=== PATIENT | female | born 1975 | race Caucasian/White ===

== ENCOUNTER 2020-10-15 12:42 | Outpatient (REF) | payer MEDICAID, SELFPAY ==
--- NOTE | ~2020-10-15 | MM_ITS ---
EXAMINATION: MM SCREENING DIGITAL BREAST TOMOSYNTHESIS, BILATERAL CLINICAL INFORMATION: Screening. Asymptomatic. The lifetime risk of breast cancer based on the Tyrer-Cuzick Model is 7%. COMPARISON: Mammography: 05/05/2019, 12/14/2017, 11/14/2016 TECHNIQUE: Digital breast tomosynthesis is performed in both the craniocaudal and mediolateral oblique views along with computer-aided detection (CAD). Synthesized 2D images are generated from the tomosynthesis. FINDINGS: There are scattered areas of fibroglandular density (ACR BI-RADS breast composition Category b). There are no significant masses, abnormal calcifications, or other abnormalities. The axilla and skin contours are unremarkable. There is incidental intramammary node again seen mid upper outer left breast. MM/MM tomosynthesis screening BI IMPRESSION: No mammographic evidence of malignancy. ASSESSMENT: BI-RADS 2: Benign RECOMMENDATION: Routine annual mammography screening. This patient's information was entered into a reminder system with a target due date for their next mammogram.
== END 2020-10-15 12:43 | disposition home or self-care (01) ==
LOC: HO.MAMMO 12:42
PROVIDERS: Visit Provider Internal Medicine
DX: Z12.31 Encounter for screening mammogram for malignant neoplasm of breast (principal)
CPT/HCPCS: 77063; 77067

== ENCOUNTER 2021-08-11 21:22 | Emergency (ER) | payer MEDICAID, SELFPAY ==
--- NOTE | 2021-08-11 | ECG_ITS ---
Test Reason : CHEST PAIN Blood Pressure : / mmHG Vent. Rate : 078 BPM Atrial Rate : 078 BPM P-R Int : 140 ms QRS Dur : 086 ms QT Int : 402 ms P-R-T Axes : 048 017 036 degrees QTc Int : 458 ms Normal sinus rhythm Normal ECG When compared with ECG of 12-APR-2004 10:50, No significant change was found Referred By: Generic ED Physician Electronically Signed By:JOHNATHAN JJ
[2021-08-11 22:37] VITALS: BP 98/78; PULSE 100; RESP 20; TEMP 37.2; O2SAT 100; BMI 42.3
--- NOTE | 2021-08-12 01:43 | PC.NURSE ---
Per pt, having SOB, midsternal CP radiating to upper RT shoulder, voice change Pt was having allergic reaction to frozen fruit on Sunday. Pt states been taking benadryl with no relief. Pt went to urgent care Sunday and was prescribed citrizine. Pt started taking citrizine at 1330. Pt started having signs and symptoms later in the afternoon.
--- NOTE | 2021-08-12 01:55 | ED.ALLEREA ---
HPI - Allergic Reaction General Chief complaint: Allergic Reaction Stated complaint: allergic reaction Time Seen by Provider: 08/12/21 01:48 Source: patient Mode of arrival: ambulatory Limitations: no limitations History of Present Illness HPI narrative: Patient comes to the emergency room for a possible allergic reaction to cetirizine. Patient states that yesterday she had frozen food, patient had hives and scratchy throat. Patient went to see her primary care physician, she was given cetirizine for the allergic reaction. Patient states that after she took the medication she had chest tightness, shortness of breath, itchy throat. Patient took the medication approximately 12 hours ago. Patient states that since then, her symptoms have subsided. At this time patient is asymptomatic. Related Data Previous Rx's Medication Instructions Recorded prednisone 50 mg tablet 50 mg PO DAILY #3 tab 08/12/21 Allergies Allergy/AdvReac Type Severity Reaction Status Date / Time From [facility] Allergy Mild RASH Uncoded 01/01/20 15:12 Review of Systems Review of Systems: Constitutional : No Weight loss, No Fever, No Chills, No Night Sweats, No Fatigue, No Malaise ENT/Mouth : No Hearing loss, No Ear Pain, No Nasal Congestion, No Sinus Pain, yesterday and earlier today patient had bit of hoarseness, self-resolved. No sore throat, No Rhinorrhea, No Swallowing Difficulty Eyes: No Eye Pain, No Swelling, No Redness, No Foreign Body, No Discharge, No Vision Changes Cardiovascular : Earlier today patient had chest tightness without any Chest Pain, No SOB, No Dyspnea on Exertion, No Orthopnea, No Edema, No Palpitations Respiratory : No Cough, No Sputum, No Wheezing, No Smoke Exposure, No Dyspnea Gastrointestinal : No Nausea, No Vomiting, No Diarrhea, No Constipation, No abdominal Pain, No Hematochezia, No Melena Genitourinary : no irregular bleeding, No Dysuria, No Urinary Frequency, No Hematuria, No Urinary Incontinence, No Urgency, No Flank Pain, No Urinary Flow Changes, No Hesitancy Musculoskeletal : No joint pain, No Myalgias, No Joint Swelling Skin :-redness yesterday, at this moment subsided Neuro : No Weakness, No Numbness, No Paresthesias, No Loss of Consciousness, No Dizziness, No Headache Psych : No Anxiety/Panic, No Depression, No SI/HI/AH/VH, No Social Issues, Heme/Lymph: No Bruising, No Bleeding,No Lymphadenopathy Endocrine : No Polyuria, No Polydipsia, No Temperature Intolerance [facility] Social History Social History Advance Directives: No Patient : No Physical Exam ED Vital Signs: Vital Signs - 24 hr 08/11/21 22:37 Temperature 98.9 F Pulse Rate 100 Respiratory Rate 20 Blood Pressure 98/78 Pulse Oximetry 100 BMI result Body Mass Index 42.3 Const Other: Appearance: Alert. Oriented X3. No acute distress. Eyes: Pupils equal, round and reactive to light. ENT: Pharynx normal. Normal tongue, normal uvula, no injury Merary Neck: Normal inspection. Neck supple. No lymph nodes noted. No crepitus CVS: Normal heart rate and rhythm. Pulses normal. Normal S1 and S2 Respiratory: No respiratory distress. Breath sounds normal. No Wheezing. No rales Abdomen: Soft and nontender. No rigidity. No distention. Skin: Skin warm and dry. Normal skin color. Normal skin turgor. No hives Extremities: No lower extremity edema. No Lacerations. No Rash Neuro: Oriented X 3. No motor deficit. No sensory deficit. Moving all extremities. No slurred speech. CN 2 through 12 grossly intact Psych: calm, cooperative, anxious Course Course Course Narrative: At this time, patient has no signs of allergic reaction. Patient was given p.o. prednisone, Pepcid, Benadryl. Patient instructed to discontinue taking cetirizine. Discharge Plan Discharge Clinical Impression: Allergic reaction Patient Disposition: Home, Self-Care Instructions: Allergies (ED) Additional Instructions: Please follow-up with your primary care physician tomorrow. If you have any worsening or new symptoms, please return to the emergency room or call 911 Prescriptions: New prednisone 50 mg tablet 50 mg PO DAILY Qty: 3 0RF
[2021-08-12] MEDS: Famotidine 20 MG TABLET PO (02:07)
[2021-08-12] MEDS: diphenhydrAMINE HCL 25 MG TABLET 50 MG PO (02:07)
[2021-08-12] MEDS: predniSONE 20 MG TABLET 60 MG PO (02:08)
[2021-08-12 02:10] VITALS: BP 120/64; PULSE 76; O2SAT 100
--- NOTE | 2021-08-12 02:13 | PC.NURSE ---
Pt medicated per MAR Pt tolerating well Will continue to monitor
== END 2021-08-12 02:14 | disposition home or self-care (01) ==
PROVIDERS: Emergency Provider Emergency Medicine
DX: L27.2 Dermatitis due to ingested food (principal); R07.89 Other chest pain; Z79.899 Other long term (current) drug therapy
CPT/HCPCS: 93005; 99283; Q0163

== ENCOUNTER 2021-08-19 13:15 | Outpatient (REF) | payer MEDICAID, SELFPAY ==
--- NOTE | ~2021-08-19 | XR_ITS ---
EXAMINATION: XR CHEST CLINICAL INFORMATION: Shortness of breath and chest tightness COMPARISON: None TECHNIQUE: 2 views of the chest were obtained. FINDINGS: The cardiac and mediastinal contours are normal. The lungs are clear. There is no pleural effusion or pneumothorax. There are degenerative changes of the spine. XR/XR chest 2V IMPRESSION: Unremarkable examination.
== END 2021-08-19 13:16 | disposition home or self-care (01) ==
LOC: HO.XRAY 13:15
PROVIDERS: PCP Registered Nurse Community Health; Visit Provider Registered Nurse Community Health
DX: R06.02 Shortness of breath (principal)
CPT/HCPCS: 71046

== ENCOUNTER 2021-09-01 07:36 | Outpatient (REF) | payer MEDICAID, SELFPAY ==
--- NOTE | 2021-09-01 | PFT_ITS ---
INDICATION: Shortness of breath. SPIROMETRY: FEV1 to FVC 85% with an FEV1 of 2.65 L, which is 87% predicted and an FVC of 3.12 L, which is 31% predicted. No significant response to bronchodilators noted. The maximum voluntary ventilation 64% predicted. LUNG VOLUMES: Total lung capacity 79% predicted with an expiratory reserve volume of 44% predicted. DIFFUSION CAPACITY: DLCO of 69% predicted, although it does correct to 94% predicted when correcting for the alveolar volume. COMPARISONS: None. INTERPRETATION: No obstructive ventilatory defect. No significant response to bronchodilators noted. There is a mild decrease in the maximum voluntary ventilation secondary to likely deconditioning, although cannot rule out neuromuscular conditions. Lung volumes do demonstrate a mild restrictive ventilatory defect. In addition to that, there is a decrease in the expiratory reserve volume secondary to an elevated BMI. The patient also has a mild diffusion impairment that does correct to normal when correcting for the alveolar volume, suggesting some degree that there is hyperexpansion of the lungs. Clinical correlation warranted. MD CESAR Mcgregor/REBEKAH / [id number]
== END 2021-09-01 07:37 | disposition home or self-care (01) ==
LOC: HO.RESP 07:36
PROVIDERS: PCP Registered Nurse Community Health; Visit Provider Registered Nurse Community Health
DX: R06.02 Shortness of breath (principal)
CPT/HCPCS: 94060; 94727; 94729

== ENCOUNTER 2021-09-21 14:22 | Outpatient (REF) | payer MEDICAID, SELFPAY ==
[2021-09-21 15:05] LABS: Hematocrit 33.8 % (37.0-47.0); Mean Corpuscular HGB Conc 32.5 g/dl (31.0-35.0); Mean Corpuscular Hemoglobin 28.1 pg (27.0-33.0); Mean Corpuscular Volume 86.2 fL (80.0-98.0); Mean Platelet Volume 10.9 fL (9.4-12.3); Platelet Count 238 X10*3/uL (160-400); Red Blood Count 3.92 X10*6/uL (4.20-5.50); Red Cell Distribution Width 13.2 % (11.0-16.0); White Blood Count 9.3 X10*3/uL (4.8-10.8)
[2021-09-21 15:51] LABS: Syphilis Screen Nonreactive (Nonreactive)
[2021-09-21 15:55] LABS: HCG Quantitative < 2 mIU/mL; TSH reflex Free T4 2.26 uIU/mL (0.32-4.0)
[2021-09-21 17:52] LABS: CT PCR NOT DETECTED (Not Detect.); NG PCR NOT DETECTED (Not Detect.)
[2021-09-22 04:59] LABS: HBsAGNum1 2.74 S/CO (0.00-0.99); HIV AB/AG Nonreactive (Nonreactive); HIV Num 1 0.72 S/CO (0.00-0.99); ~HepC Num1 0.11 S/CO (0.00-0.79); ~Hepatitis C Antibody Nonreactive (Nonreactive)
[2021-09-22 05:55] LABS: HBsAGNum2 Nonreactive; HBsAGNum3 Nonreactive; Hepatitis B Surface Antigen NEGATIVE (Negative)
[2021-09-22 12:31] LABS: BV Int Neg Control Negative (Negative); BV Int Pos Control Positive (Positive)
[2021-09-29 03:35] LABS: HPV mRNA E6/E7 rflx Not Detected (Not Detected)
== END 2021-09-21 14:23 | disposition home or self-care (01) ==
LOC: HO.LAB 14:22
PROVIDERS: PCP Registered Nurse Community Health; Visit Provider Obstetrics & Gynecology
DX: Z01.419 Encounter for gynecological examination (general) (routine) without abnormal findings (principal); N93.9 Abnormal uterine and vaginal bleeding, unspecified; B96.89 Other specified bacterial agents as the cause of diseases classified elsewhere; N76.0 Acute vaginitis
CPT/HCPCS: 36415; 84443; 84702; 85027; 86780; 86803; 87340; 87389; 87480; 87491; 87510; 87591; 87624; 87660; 88142; 99202

== ENCOUNTER 2021-10-31 13:49 | Outpatient (REF) | payer MEDICAID, SELFPAY | END 2021-10-31 13:50 | disposition home or self-care (01) | LOC: HO.LAB 13:49 | PROVIDERS: PCP Registered Nurse Community Health; Visit Provider Obstetrics & Gynecology | DX: N93.9 Abnormal uterine and vaginal bleeding, unspecified (principal) | CPT/HCPCS: 58100; 88305 ==

== ENCOUNTER → 2021-11-09 09:23 | Outpatient (BNVA) | payer MEDICAID, SELFPAY | PROVIDERS: PCP Registered Nurse Community Health; Visit Provider Obstetrics & Gynecology | DX: N85.00 Endometrial hyperplasia, unspecified (principal) | CPT/HCPCS: 58300; 81025; 99212; J7298 ==

== ENCOUNTER 2021-12-15 14:37 | Outpatient (REF) | payer MEDICAID, SELFPAY ==
--- NOTE | ~2021-12-15 | MM_ITS ---
EXAMINATION: MM SCREENING DIGITAL BREAST TOMOSYNTHESIS, BILATERAL CLINICAL INFORMATION: Screening. Asymptomatic. The lifetime risk of breast cancer based on the Tyrer-Cuzick Model is 8%. COMPARISON: Mammography: 10/15/2020, 05/05/2019, 12/14/2017 TECHNIQUE: Digital breast tomosynthesis is performed in both the craniocaudal and mediolateral oblique views along with computer-aided detection (CAD). Synthesized 2D images are generated from the tomosynthesis. Additional bilateral MLO views are provided. FINDINGS: There are scattered areas of fibroglandular density (ACR BI-RADS breast composition Category b). There are no significant masses, abnormal calcifications, or other abnormalities. Parenchymal pattern is similar to prior studies. There is no developing density or architectural abnormality. The axilla and skin contours are unremarkable. No significant changes. MM/MM tomosynthesis screening BI IMPRESSION: No mammographic evidence of malignancy. ASSESSMENT: BI-RADS 1: Negative RECOMMENDATION: Routine annual mammography screening. This patient's information was entered into a reminder system with a target due date for their next mammogram.
== END 2021-12-15 14:38 | disposition home or self-care (01) ==
LOC: HO.MAMMO 14:37
PROVIDERS: PCP Registered Nurse Community Health; Visit Provider Obstetrics & Gynecology
DX: Z12.31 Encounter for screening mammogram for malignant neoplasm of breast (principal)
CPT/HCPCS: 77063; 77067

== ENCOUNTER → 2022-01-05 11:36 | Outpatient (BNVA) | payer MEDICAID, SELFPAY | PROVIDERS: PCP Registered Nurse Community Health; Visit Provider Obstetrics & Gynecology | DX: Z30.431 Encounter for routine checking of intrauterine contraceptive device (principal) | CPT/HCPCS: 99212 ==

== ENCOUNTER 2022-02-07 11:18 | Outpatient (REF) | payer MEDICAID, SELFPAY | END 2022-02-07 11:19 | disposition home or self-care (01) | LOC: HO.LNP 11:18 | PROVIDERS: Visit Provider Obstetrics & Gynecology | DX: N85.00 Endometrial hyperplasia, unspecified (principal) | CPT/HCPCS: 58100; 88305 ==

== ENCOUNTER → 2022-02-27 14:52 | Outpatient (BNVA) | payer MEDICAID, SELFPAY | PROVIDERS: PCP Registered Nurse Community Health; Visit Provider Obstetrics & Gynecology | DX: N85.00 Endometrial hyperplasia, unspecified (principal) | CPT/HCPCS: 99212 ==

== ENCOUNTER 2022-05-30 08:48 | Outpatient (REF) | payer MEDICAID, SELFPAY | END 2022-05-30 08:49 | disposition home or self-care (01) | LOC: HO.LNP 08:48 | PROVIDERS: PCP Registered Nurse Community Health; Visit Provider Obstetrics & Gynecology | DX: N93.9 Abnormal uterine and vaginal bleeding, unspecified (principal); N85.00 Endometrial hyperplasia, unspecified | CPT/HCPCS: 58100; 81025; 88305 ==

== ENCOUNTER → 2022-06-14 14:58 | Outpatient (BNVA) | payer MEDICAID, SELFPAY | PROVIDERS: PCP Registered Nurse Community Health; Visit Provider Obstetrics & Gynecology | DX: N85.01 Benign endometrial hyperplasia (principal) | CPT/HCPCS: 99212 ==

== ENCOUNTER 2022-10-23 15:03 | Outpatient (AMB) | payer MEDICAID, SELFPAY ==
[2022-10-23 15:19] VITALS: BP 122/80; BMI 42.8
--- NOTE | 2022-10-23 15:19 | MHC.OFFVIS ---
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 The patient is doing well with no complaints PFSH Medical History Hypertension Varicose veins of both legs with edema Surgical History History of back surgery Hx of cholecystectomy Family History Father Colon cancer Mother Heart attack COPD (chronic obstructive pulmonary disease) Social History Household Members Other:: daughter [facility] Alcohol intake: never Patient Tobacco Use Status: Former Tobacco user Physical Exam Vital Signs: BMI result Body Mass Index 42.8 Office Procedures Endometrial Biopsy Details: The patient was counseled regarding the indication and benefits of endometrial sampling to rule out endometrial pathology including not limited to endometrial hyperplasia or endometrial cancer and others; The alternatives (Either do nothing vs. hysteroscopy D&C) & the risks were discussed with the patient including but not limited: pain, uterine perforation, bleeding, infection, possible injury to bladder, bowel, ureter, possible need for blood transfusion with all its possible risks. The patient verbalized understanding all questions answered and signed consent. Urine test done in the office was negative The patient was placed into the dorsal lithotomy position; a speculum was inserted in the vagina. Using aseptic technique for the procedure, the cervix was cleansed with Betadine. The anterior lip of the cervix was grasped with a single tooth tenaculum. The uterus was sounded to 7 cm with a 4 mm Pipelle was used. Tissues samples were obtained and placed in formalin, in a patient labeled container and sent to the pathology department. At the end of the procedure, there was minimal bleeding noted The patient tolerated the procedure well and was discharged in good condition with the following instructions: Nothing in the vagina until the bleeding stops. No sex until the bleeding stops, to call if any of the following occurs: fever (>100.4), flu-like symptoms, abdominal pain, heavy bleeding, four smelling vaginal discharge. The patient was instructed to schedule a Follow up appointment in 2 weeks to discuss pathology results of the biopsy and treatment options. This note was generated with a voice recognition program. Some errors may have been overlooked during the review of this note. Sometimes these errors may affect the content or meaning of a given sentence. [id number] Biopsy Results AMB Test Urine AMB Test Urine Negative Last Edit by GERMAN Fu on 10/23/22 15:22 Assessment & Plan Assessment & Plan (1) Endometrial hyperplasia without atypia: Comment: Resolved with Mirena IUD Code(s): N85.00 - Endometrial hyperplasia, unspecified Plan: EMB done, see procedure note Orders: Orders AMB HCG Urine Test Today Z32.02 - Encounter for test, result negative AMB Endometrial Biopsy Today N85.00 - Endometrial hyperplasia, unspecified Coding Level of Care Code Procedure Only Diagnoses Endometrial hyperplasia without atypia N85.00 CPT Codes Endometrial Biopsy - CPT: 68235-[id number] Biopsy ([id number])
== END 2022-10-23 15:36 | disposition home or self-care (01) ==
LOC: HO.HWS 15:03
PROVIDERS: PCP Registered Nurse Community Health; Visit Provider Obstetrics & Gynecology
DX: N85.00 Endometrial hyperplasia, unspecified (principal); Z32.02 Encounter for pregnancy test, result negative
CPT/HCPCS: 58100

== ENCOUNTER 2022-10-23 15:03 | Outpatient (REF) | payer MEDICAID, SELFPAY | END 2022-10-23 15:04 | disposition home or self-care (01) | LOC: HO.LNP 15:03 | PROVIDERS: PCP Registered Nurse Community Health; Visit Provider Obstetrics & Gynecology | DX: N85.00 Endometrial hyperplasia, unspecified (principal); N93.9 Abnormal uterine and vaginal bleeding, unspecified | CPT/HCPCS: 58100; 81025; 88305 ==

== ENCOUNTER 2022-12-21 14:51 | Outpatient (REF) | payer MEDICAID, SELFPAY | END 2022-12-21 14:52 | disposition home or self-care (01) | LOC: HO.MAMMO 14:51 | PROVIDERS: PCP Registered Nurse Community Health; Visit Provider Registered Nurse Community Health | DX: Z12.31 Encounter for screening mammogram for malignant neoplasm of breast (principal) | CPT/HCPCS: 77063; 77067 ==

== ENCOUNTER → 2022-12-21 15:15 | Outpatient (BNV) | payer MEDICAID, SELFPAY | PROVIDERS: PCP Registered Nurse Community Health; Visit Provider Radiology Diagnostic Radiology | DX: Z12.31 Encounter for screening mammogram for malignant neoplasm of breast (principal) | CPT/HCPCS: 77063; 77067 ==

== ENCOUNTER 2023-01-08 12:00 | Outpatient (REF) | payer MEDICAID, SELFPAY ==
[2023-01-08 13:01] LABS: MANUAL DIFF FLAG NO
[2023-01-08 13:14] LABS: Basophils Absolute Auto 0.1 X10*3/uL (0.0-0.2); Basophils Percent Auto 0.7 % (0-2); Eosinophils Absolute Auto 0.1 X10*3/uL (0.0-0.4); Eosinophils Percent Auto 1.5 % (0-4); Hematocrit 42.9 % (37.0-47.0); Hemoglobin 14.5 g/dl (12.0-16.0); Imm Gran Abs Auto 0.03 X10*3/uL (0.00-0.03); Imm Gran Pct Auto 0.4 % (0.0-0.4); Lymphocytes Absolute Auto 1.7 X10*3/uL (1.2-4.9); Lymphocytes Percent Auto 21.4 % (20-40); Mean Corpuscular HGB Conc 33.8 g/dl (31.0-35.0); Mean Corpuscular Hemoglobin 30.1 pg (27.0-33.0); Mean Platelet Volume 11.1 fL (9.4-12.3); Monocytes Absolute Auto 0.4 X10*3/uL (0.1-1.2); Monocytes Percent Auto 4.9 % (2-11); Neutrophils Absolute Auto 5.8 x10*3/uL (2.0-8.3); Neutrophils Percent Auto 71.1 % (45-73); Platelet Count 232 X10*3/uL (160-400); Red Blood Count 4.82 X10*6/uL (4.20-5.50); Red Cell Distribution Width 12.4 % (11.0-16.0); White Blood Count 8.1 X10*3/uL (4.8-10.8)
[2023-01-08 13:24] LABS: Estimated Average Glucose 91 mg/dL; Hemoglobin A1c % 4.8 % (<6.0)
[2023-01-08 13:42] LABS: Alanine Aminotransferase 19 U/L (0-31); Albumin Level 4.4 g/dL (3.5-5.0); Alkaline Phosphatase 61 U/L (39-117); Anion Gap 14 (12-20); Aspartate Amino Transferase 17 U/L (5-31); Bilirubin Total 0.8 mg/dL (0.0-1.0); Blood Urea Nitrogen 10 mg/dL (9-16); Calcium 9.9 mg/dL (8.4-10.2); Carbon Dioxide 27 mmol/L (22-29); Chloride 106 mmol/L (96-108); Cholesterol 173 mg/dL (<200); Estimated Glomerular Filt Rate > 60; Glucose Random 100 mg/dL (60-115); HDL Cholesterol 55 mg/dL (>40); LDL Cholesterol Calculated 104 mg/dL (<100); Potassium 3.8 mmol/L (3.3-5.1); Sodium 143 mmol/L (135-145); Total Protein 7.5 g/dL (6.5-8.0); Triglycerides 70 mg/dL (<150)
[2023-01-08 13:58] LABS: TSH reflex Free T4 3.07 uIU/mL (0.32-4.0)
[2023-01-12 11:54] LABS: VITAMIN D (1,25 OH) D3 31 pg/mL; Vit D (1,25-Dihydroxy) Total 31 pg/mL (18-72); Vitamin D (1,25 OH) D2 <8 pg/mL
== END 2023-01-08 12:01 | disposition home or self-care (01) ==
LOC: HO.HHCL 12:00
PROVIDERS: Visit Provider Registered Nurse
DX: Z00.00 Encounter for general adult medical examination without abnormal findings (principal)
CPT/HCPCS: 36415; 80053; 80061; 82652; 83036; 84443; 85025

== ENCOUNTER 2023-01-17 15:03 | Outpatient (AMB) | payer MEDICAID, SELFPAY ==
--- NOTE | 2023-01-17 15:08 | A.OFFVIS_ITS ---
Intake Vital Signs 01/17/23 15:11 Height 5 ft 5 in Weight 255 lb 11.779 oz BMI 42.6 BP 102/60 Intake Visit Reasons: EMB results Allergies From [facility] Allergy (Mild, Uncoded 10/23/22 15:19) RASH HPI HPI Comments History of Present Illness Details Presenting for follow-up endometrial biopsy as part of the surveillance for simple endometrial hyperplasia diagnosed in 11/04. Since then to endometrial biopsy were negative for endometrial hyperplasia and/or malignancy in 02/04 and in 06/07. Pathology showed the following: -Benign endometrium with ectatic stromal vessels, marked decidual stromal change, and atrophic glands, consistent with progestin effect; no atypia or carcinoma. -Benign endocervical glandular and squam ous epithelium [facility] Medical History Hypertension Varicose veins of both legs with edema Surgical History History of back surgery Hx of cholecystectomy Family History Father Colon cancer Mother Heart attack COPD (chronic obstructive pulmonary disease) Social History Household Members Other:: daughter Housing: Condominium Alcohol intake: never Patient Tobacco Use Status: Former Tobacco user Review of Systems Const All systems reviewed & are unremarkable except as noted in HPI and below Reports as per HPI and Reports no additional complaints GI Reports no additional complaints Reports no additional complaints Assessment & Plan Assessment & Plan (1) Endometrial hyperplasia without atypia: Comment: Resolved with Mirena IUD Code(s): N85.00 - Endometrial hyperplasia, unspecified Plan: Discussed with the patient the results are EMB no evidence of persistence or recurrence of endometrial hyperplasia. Instructions given the patient to call in case of abnormal uterine bleeding, otherwise will keep Mirena IUD and follow- up as needed and to schedule annual exam appointment . All questions answered, the patient verbalized understanding Coding Level of Care Code Est Pt Level 3 (07412) Diagnoses Endometrial hyperplasia without atypia N85.00
[2023-01-17 15:11] VITALS: BP 102/60; BMI 42.6
== END 2023-01-17 15:17 | disposition home or self-care (01) ==
LOC: HO.HWS 15:03
PROVIDERS: PCP Registered Nurse Community Health; Visit Provider Obstetrics & Gynecology
DX: N85.00 Endometrial hyperplasia, unspecified (principal)
CPT/HCPCS: 99213

== ENCOUNTER → 2023-01-17 15:03 | Outpatient (BNVA) | payer MEDICAID, SELFPAY | PROVIDERS: PCP Registered Nurse Community Health; Visit Provider Obstetrics & Gynecology | DX: N85.00 Endometrial hyperplasia, unspecified (principal); Z98.890 Other specified postprocedural states | CPT/HCPCS: 99212 ==

== ENCOUNTER 2023-04-02 14:59 | Outpatient (AMB) | payer MEDICAID, SELFPAY ==
[2023-04-02 15:25] VITALS: BP 120/84; BMI 42.9
--- NOTE | 2023-04-02 15:25 | A.OFFVIS_ITS ---
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 No complaints. No vaginal bleeding Last Pap/HPV was negative in 10/05 Last Mammogram was BI-RADS 1 in 01/06 The patient had simple endometrial hyperplasia without atypia in 11/04 has been on Mirena IUD since then repeat endometrial biopsy in 02/04 , 06/08 and 11/05 were negative Last screening colonoscopy was 3 years ago, the patient is due for another screening colonoscopy in 2 years [facility] Medical History Hypertension Varicose veins of both legs with edema Surgical History History of back surgery Hx of cholecystectomy Family History Father Colon cancer Mother Heart attack COPD (chronic obstructive pulmonary disease) Social History Household Members Other:: daughter Housing: Condominium Alcohol intake: never Patient Tobacco Use Status: Former Tobacco user Female Reproductive History Menstrual control method: progestin IUCD Date of last pap smear: 09/21/21 (neg pap and hpv) Date of Mammogram: 12/21/22 Review of Systems Const All systems reviewed & are unremarkable except as noted in HPI and below Card Reports as per HPI Resp Reports as per HPI GI Reports as per HPI and Reports no additional complaints Reports as per HPI Physical Exam Vital Signs: BMI result Body Mass Index 42.9 Const General: cooperative, healthy appearing and comfortable Chest Chest palpation & inspection: normal inspection of the chest and normal palpation of entire chest wall Breast/axilla inspection: normal inspection of the breasts and normal inspection of the axillae Breast/axilla palpation: normal palpation of the breasts, normal palpation of the axillae and no axillary lymphadenopathy Resp Effort & Inspection: normal respiratory effort Auscultation: clear to auscultation bilaterally Percussion: percussion normal Cardio Palpation: normal PMI Rate: regular rate Rhythm: regular rhythm Heart sounds: no murmurs and no rubs Peripheral pulses: Peripheral pulses 2+ throughout GI Inspection: Yes normal to inspection Palpation (GI): Soft to palpation, nontender, no guarding, not rigid and No hepatosplenomegaly present Percussion: Yes normal to percussion Auscultation: normal bowel sounds Rectal Exam - Female: deferred General: Yes bladder normal to palpation External Female Exam: No lesion Speculum Exam - Vagina: normal appearance of the vagina, normal palpation, normal vaginal discharge and not erythematous Speculum Exam - Cervix: normal appearance of the cervix, normal palpation and Other cervical findings present (IUD string in place) Bimanual exam- vagina & uterus: normal bimanual exam, normal palpation, uterine size normal, bladder normal to palpation, consistency normal and normal palpation Bimanual Exam- Adnexa, other: normal adnexae, no masses and no tenderness Assessment & Plan Assessment & Plan (1) Endometrial hyperplasia without atypia: Comment: Resolved with Mirena IUD Code(s): N85.00 - Endometrial hyperplasia, unspecified Plan: Instructions given the patient to call in case of in abnormal uterine bleeding, will proceed with repeat endometrial biopsy to rule out recurrence progression of endometrial hyperplasia (2) Well woman exam: Code(s): Z01.419 - Encounter for gynecological examination (general) (routine) without abnormal findings Plan: Co testing not indicated this year. Counseled the patient about the recommended dietary allowance of 1200 mg of Calcium & 600 IU of vitamin D. Instructions given the patient to schedule next screening mammogram in 01/07. The patient was instructed to perform monthly self-breast exams and schedule annual exam in a year. All questions answered and the patient verbalized understanding. (3) IUD check up: Code(s): Z30.431 - Encounter for routine checking of intrauterine contraceptive device Plan: Discussed with the patient the finding on physical exam, IUD string in place, the patient was reassured. The patient requested to trim the IUD strings insert partner is feeling the string, the IUD string was cut by 0.5 cm. Coding Level of Care Code Est Pt Prev Care 40-64y(57376) Diagnoses Endometrial hyperplasia without atypia N85.00 Well woman exam Z01.419 IUD check up Z30.431
== END 2023-04-02 15:44 | disposition home or self-care (01) ==
PROVIDERS: PCP Registered Nurse Community Health; Visit Provider Obstetrics & Gynecology
DX: Z01.419 Encounter for gynecological examination (general) (routine) without abnormal findings (principal); N85.00 Endometrial hyperplasia, unspecified
CPT/HCPCS: 99396

== ENCOUNTER → 2023-04-02 14:59 | Outpatient (BNVA) | payer MEDICAID, SELFPAY | PROVIDERS: PCP Registered Nurse Community Health; Visit Provider Obstetrics & Gynecology | DX: Z01.419 Encounter for gynecological examination (general) (routine) without abnormal findings (principal); Z30.431 Encounter for routine checking of intrauterine contraceptive device; N85.00 Endometrial hyperplasia, unspecified | CPT/HCPCS: 99396 ==

== ENCOUNTER 2023-12-24 15:04 | Outpatient (REF) | payer MEDICAID, SELFPAY ==
--- NOTE | ~2023-12-24 | MM_ITS ---
EXAMINATION: MM SCREENING DIGITAL BREAST TOMOSYNTHESIS, BILATERAL CLINICAL INFORMATION: Screening. Asymptomatic. COMPARISON: Mammography: Comparison is made with available priors TECHNIQUE: Digital breast mammography with tomosynthesis is performed in both the craniocaudal and mediolateral oblique views along with computer-aided detection (CAD). FINDINGS: There are scattered areas of fibroglandular density (ACR BI-RADS breast composition Category b). There are no significant masses, abnormal calcifications, or other abnormalities. MM/MM tomosynthesis screening BI IMPRESSION: No mammographic evidence of malignancy. ASSESSMENT: BI-RADS BI-RADS 1 - Negative RECOMMENDATION: Routine annual mammography screening. 1 year F/U This examination should not preclude the clinical evaluation of a suspicious palpable abnormality. This patient's information was entered into a reminder system with a target due date for their next mammogram. Electronically signed by: Carmen Cobb DO 01/08/2024 09:21 AM EDT
== END 2023-12-24 15:05 | disposition home or self-care (01) ==
LOC: HO.MAMMO 15:04
PROVIDERS: PCP Registered Nurse; Visit Provider Registered Nurse
DX: Z12.31 Encounter for screening mammogram for malignant neoplasm of breast (principal)
CPT/HCPCS: 77063; 77067

== ENCOUNTER → 2023-12-24 15:15 | Outpatient (BNV) | payer MEDICAID, SELFPAY | PROVIDERS: PCP Registered Nurse; Visit Provider Internal Medicine | DX: Z12.31 Encounter for screening mammogram for malignant neoplasm of breast (principal) | CPT/HCPCS: 77063; 77067 ==

== ENCOUNTER 2024-04-25 07:53 | Day surgery (SDC) | payer MEDICAID, SELFPAY ==
--- OUTSIDE RECORDS SUMMARY | 2024-03-26 04:49 | XMS_ITS ---
Author Organization [facility] Address [address] [place] [address] Care Team Providers Care Risk Investigator Name Role Phone PATRIC MUNROE MD Primary Care Provider Sherwin Martinez Jr Unavailable ALLERGIES Allergen (clinical drug ingredient) Drug/Non Drug Allergy documented on EMR Reaction Allergy Type Onset Date Status naproxen Naproxen Unknown Drug Allergy Active gabapentin Gabapentin Unknown Drug Allergy Activ e fluoxetine Fluoxetine Unknown Drug Allergy Activ e amlodipine Amlodipine Besylate Unknown Drug Allergy Active REASON FOR VISIT Patient presents today for a consultation MEDICATIONS Medication SIG (Take, Route, Frequency, Duration) Notes Start Date End Date Status hydroCHLOROthiazide 25 MG 1 tablet in th e morning Orally Once a day Active Loratadine 10 MG 1 tablet Orally Once a day/prn Active traMADol HCl 50 MG 1 tablet Orally ever y 8 hours as needed Active Lisinopril 20 MG 1 tablet Orally Once a day Active Metoprolol Tartrate 50 MG 1 tablet with food Orally once daily Active Colace 100 MG 1 capsule as needed Orally twice a day Active Fluticasone Propionate 50 MCG/ACT 1 spray in each nostril Nasally Once a day Active Wellbutrin SR 200 MG 1 tablet in the morning Orally twice a day Active Cyclobenzaprine HCl 5 MG 1 tablet as nee ded Orally Three times a day Active metFORMIN HCl 500 MG 1 tablet with a gary l Orally Once a day for 30 day(s) Active MiraLax - 1 packet mixed with 8 ounces of fluid Orally Once a day for 30 day(s) Active Simethicone 80 MG 1 tablet after meals and at bedtime as needed Orally Four times a day Active Ranitidine HCl 150 MG 1 capsule at bedti me Orally Once a day for 30 day(s) Active Ibuprofen 800 MG 1 tablet with food o r milk as needed Orally Three times a day Active Eucerin - as directed Externally Active SOCIAL HISTORY Sex Assigned At : Social History Observation Description Sex Assigned At Unknown Alcohol Screen Question Answer Notes Did you have a drink contain ing alcohol in the past year? Yes How often did you have a dri nk containing alcohol in the past year? Monthly or less (1 point) How many drinks did you have on a typical day when you were drinking in the past year? 1 or 2 drinks (0 point) How often did you have 6 or more drinks on one occasion in the past year? Never (0 point) Points 1 Interpretation Negative PROBLEMS Problem Type ICD Code Onset Dates Problem Status W/U Status Risk SNOMED Code Notes Problem Gastroesophageal reflux disease, unspecified whether esophagitis present (K21.9) Active confirmed 748076967 VITAL SIGNS BMI 39.76 kg/m2 03/20/2024 Blood pressure systolic 00 mm Hg 03/20/20 24 Blood pressure diastolic 00 mm Hg 024 Height 66.75 in 03/20/2024 Weight 252 lbs 03/20/2024 Encounters Encounter Location Date Provider Diagnosis [facility] [address] [place] [address] 03/20/2024 Sherwin Lama Jr Colon cancer screening Z12.11 ; Gastroesophageal reflux disease, unspecified whether esophagitis present K21.9 and Family history of colon cancer Z80.0 ASSESSMENTS Encounter Date Diagnosis Assessment Notes Treatment Notes Treatment Clinical Notes 03/20/2024 Colon cancer screeni ng (ICD-10 - Z12.11) Colonoscopy material was printed 03/20/2024 Gastroesophageal reflux disease, unspecified whether esophagitis present (ICD-10 - K21.9) 03/20/2024 Family history of colon cancer (ICD-10 - Z80.0) PLAN OF TREATMENT Treatment Notes Assessment Notes Colon cancer screening Colonoscopy mater ial was printed Future Test Test Name Order Date COLONOSCOPY 03/20/2024 Next Appt Details Follow Up: 1 Year, Reason: Provider Name:Sherwin escobedo Jr, 04/25/2024 10:00:00 AM, [address] [place] [address] , [place], [place], [phone], Progress Notes * Examination Category Sub-Category Detail Notes General Examination GENERAL APPEARANCE: in no ac apache distress HEAD: normocephalic EYES: sclera non-icteric NECK/THYROID: no lymphadenopathy HEART: S1, S2 normal, no mu rmurs CHEST: normal shape and exp ansion LUNGS: clear to auscultatio n bilaterally ABDOMEN: soft, nontender, non distended, bowel sounds present, no organomegaly SKIN: anicteric EXTREMITIES: no clubbing, cyanosi s, or edema PSYCH: cognitive function i ntact ORAL CAVITY: mucosa moist
--- OUTSIDE RECORDS SUMMARY | 2024-03-26 04:49 | XMS_ITS | Patient Health Record ---
Author Organization [facility] Address [address] [place] [address] Care Team Providers Care Compressed Gas Equipment Mechanic Name Role Phone PATRIC MUNROE MD Primary Care Provider Unavaila Sherwin Livingston Jr Unavailable [phone] ALLERGIES Allergen (clinical drug ingredient) Drug/Non Drug Allergy documented on EMR Reaction Allergy Type Onset Date Status naproxen Naproxen Unknown Drug Allergy Active gabapentin Gabapentin Unknown Drug Allergy Activ e fluoxetine Fluoxetine Unknown Drug Allergy Activ e amlodipine Amlodipine Besylate Unknown Drug Allergy Active REASON FOR REFERRAL Referring Provider First Name PATRIC Referring Provider Last Name LUDWIG Referred Organization [facility] Referred Provider Sherwin Lama Jr Referred Address [address],[place],[address], Referred Provider Specialty Gastroentero logy General Notes Rocío Frederick 024 02:55:59 PM EST > requested a [facility] for visit with Dr. Lama on [phone] Referral Priority Routine MEDICATIONS Medication SIG (Take, Route, Frequency, Duration) Notes Start Date End Date Status Eucerin - as directed Externally Active metFORMIN HCl 500 MG 1 tablet with a gary l Orally Once a day for 30 day(s) Active MiraLax - 1 packet mixed with 8 ounces of fluid Orally Once a day for 30 day(s) Active Colace 100 MG 1 capsule as needed Orally twice a day Active hydroCHLOROthiazide 25 MG 1 tablet in th e morning Orally Once a day Active Loratadine 10 MG 1 tablet Orally Once a day/prn Active traMADol HCl 50 MG 1 tablet Orally ever y 8 hours as needed Active Lisinopril 20 MG 1 tablet Orally Once a day Active Simethicone 80 MG 1 tablet after meals and at bedtime as needed Orally Four times a day Active Fluticasone Propionate 50 MCG/ACT 1 spray in each nostril Nasally Once a day Active Ranitidine HCl 150 MG 1 capsule at bedti me Orally Once a day for 30 day(s) Active Wellbutrin SR 200 MG 1 tablet in the morning Orally twice a day Active Ibuprofen 800 MG 1 tablet with food o r milk as needed Orally Three times a day Active Metoprolol Tartrate 50 MG 1 tablet with food Orally once daily Active Cyclobenzaprine HCl 5 MG 1 tablet as nee ded Orally Three times a day Active IMMUNIZATIONS Vaccine Route Administration Date Status Comme nts Influenza Unknown 04/23/2018 Administered SOCIAL HISTORY Sex Assigned At : Social [...] W/U Status Risk SNOMED Code Notes Problem Family history of colon cancer (Z80.0) Active confirmed [id number] Problem correction (current) use of non-steroidal anti-inflammatories (NSAID) (Z79.1) Active confirmed 812346766 Problem correction (current) use of oral hypoglycemic drugs (Z79.84) Active confirmed [id number] Problem Gastroesophageal reflux disease, unspecified whether esophagitis present (K21.9) Active confirmed 395831484 VITAL SIGNS Blood pressure diastolic 00 mm Hg 03/20/2024 Height 66.75 in 03/20/2024 Blood pressure systolic 00 mm Hg 03/20/2024 Weight 252 lbs 03/20/2024 BMI 39.76 kg/m2 03/20/2024 Encounters Encounter Location Date Provider Diagnosis [facility] [address] [place] [address] 03/20/2024 Sherwin Lama Jr Colon cancer screening [...] cancer (ICD-10 - Z80.0) PLAN OF TREATMENT Future Test Test Name Order Date COLONOSCOPY 08/29/2012 COLONOSCOPY 07/24/2018 COLONOSCOPY 03/20/2024 Next Appt Details Provider Name:Sherwin escobedo , 04/25/2024 10:00:00 AM, [address] [place] [address] , [place], [place], [phone], Insurance Providers Payer Name Payer Address Payer Phone Subscriber Number Group Number Insured Name Patient Relationship to Insured Coverage Start Date Coverage End Date [place] [facility] [address] [place] [phone] [id number] LENA MALLORY Self - patient is the insured MEDICAL (GENERAL) HISTORY Medical History History ICD Code Gastroesophageal reflux disease Back and neck pain Varicose veins Hypertension Depression Elevated body mass index Colonoscopy 02/01, Endometrial hyperplasia/abnormal uterine bleeding Surgical History Surgery Date(Month/Year) Tubal ligation Cholecystectomy Back surgery IUD placement
[2024-04-23 11:59] VITALS: BMI 40.7
--- NOTE | 2024-04-24 09:06 | HO.ANESPROP2 ---
Documented by User: Maura Merino NP 04/24/24 09:06 HPI - Anesthesia Eval Consult details Narrative: 48yo F for Colonoscopy PMFSH Active Problems Active Problems: All Active Problems Well woman exam (Acute) IUD check up (Acute) Endometrial hyperplasia without atypia (Acute) Bacterial vaginosis (Acute) Abnormal uterine bleeding (Acute) Past Medical History Medical History History of use of contraceptive intrauterine device (IUD) Endometrial hyperplasia Depression Neck pain Back pain GERD (gastroesophageal reflux disease) Hypertension Varicose veins of both legs with edema Family History Family History Father Colon cancer Mother Heart attack COPD (chronic obstructive pulmonary disease) Surgical History Surgical History (Updated 04/25/24 @ 08:02 by Melanie Pool RN) Hx of varicose vein ligation Hx of tubal ligation H/O colonoscopy History of back surgery Hx of cholecystectomy Social History Social History Household Members Other:: daughter Housing: Condominium Alcohol intake: never Patient Tobacco Use Status: Former Tobacco user Use of substances other than those prescribed or required for medical reasons: No Are you DNR?: No Advance Directives: No Advance Directives Information Provided: Yes Recently lost weight without trying: No Meds Allergies Allergy/AdvReac Type Severity Reaction Status Date / Time amlodipine Allergy Unknown Verified 04/25/24 08:02 fluoxetine Allergy Unknown Verified 04/25/24 08:02 gabapentin Allergy Unknown Verified 04/25/24 08:02 naproxen Allergy Unknown Verified 04/25/24 08:02 Home Medications ?Medication ?Instructions ?Recorded ?Confirmed ?Last Taken ?Type bupropion HCl 200 mg tablet,12 hr 200 mg PO BID 09/21/21 04/23/24 04/25/24 06:15 History sustained-release cyclobenzaprine 5 mg tablet 5 mg PO TID PRN Muscle Spasm 09/21/21 04/23/24 Unknown History docusate sodium 100 mg capsule 100 mg PO BID PRN Constipation 09/21/21 04/23/24 Unknown History fluticasone propionate 50 2 spray intranasal QAM 09/21/21 04/23/24 04/25/24 06:15 History mcg/actuation nasal spray,suspension hydrochlorothiazide 25 mg tablet 25 mg PO DAILY 09/21/21 04/23/24 Unknown History ibuprofen 800 mg tablet 800 mg PO TID PRN Pain 09/21/21 04/23/24 04/18/24 History lisinopril 20 mg tablet 20 mg PO DAILY 09/21/21 04/23/24 Unknown History loratadine 10 mg tablet 10 mg PO DAILY PRN Allergy Symptoms 09/21/21 04/23/24 Unknown History metoprolol tartrate 50 mg tablet 50 mg PO DAILY 09/21/21 04/23/24 04/25/24 06:15 History tramadol 50 mg tablet 50 mg PO TID PRN Pain 09/21/21 04/23/24 Unknown History metformin 500 mg tablet 500 mg PO DAILY 04/23/24 04/23/24 Unknown History ranitidine HCl 150 mg tablet 150 mg PO BEDTIME 04/23/24 04/23/24 Unknown History simethicone 80 mg chewable tablet 80 mg PO QID PRN Abdominal 04/23/24 04/23/24 Unknown History Discomfort Exam Height,Weight and Vital Signs: Height 5 ft 6 in Weight 114.305 kg Assessment and Plan Assessment Anesthesia Assessment: Chart Reviewed Documented by User: Montez Weinberg MD 04/25/24 08:44 [facility] Past Medical History Medical History History of use of contraceptive intrauterine device (IUD) Endometrial hyperplasia Depression Neck pain Back pain GERD (gastroesophageal reflux disease) Hypertension Varicose veins of both legs with edema Family History Family History Father Colon cancer Mother Heart attack COPD (chronic obstructive pulmonary disease) Family history of problems with anesthesia: No Surgical History Surgical History (Updated 04/25/24 @ 08:02 by Melanie Pool RN) Hx of varicose vein ligation Hx of tubal ligation H/O colonoscopy History of back surgery Hx of cholecystectomy History of Problems with Anesthesia: No Social History Social History Household Members Other:: daughter Housing: Condominium Alcohol intake: never Patient Tobacco Use Status: Former Tobacco user Use of substances other than those prescribed or required for medical reasons: No Are you DNR?: No Advance Directives: No Advance Directives Information Provided: Yes Recently lost weight without trying: No Meds Allergies Allergy/AdvReac Type Severity Reaction Status Date / Time amlodipine Allergy Unknown Verified 04/25/24 08:02 fluoxetine Allergy Unknown Verified 04/25/24 08:02 gabapentin Allergy Unknown Verified 04/25/24 08:02 naproxen Allergy Unknown Verified 04/25/24 08:02 Home Medications ?Medication ?Instructions ?Recorded ?Confirmed ?Last Taken ?Type bupropion HCl 200 mg tablet,12 hr 200 mg PO BID 09/21/21 04/23/24 04/25/24 06:15 History sustained-release cyclobenzaprine 5 mg tablet 5 mg PO TID PRN Muscle Spasm 09/21/21 04/23/24 Unknown History docusate sodium 100 mg capsule 100 mg PO BID PRN Constipation 09/21/21 04/23/24 Unknown History fluticasone propionate 50 2 spray intranasal QAM 09/21/21 04/23/24 04/25/24 06:15 History mcg/actuation nasal spray,suspension hydrochlorothiazide 25 mg tablet 25 mg PO DAILY 09/21/21 04/23/24 Unknown History ibuprofen 800 mg tablet 800 mg PO TID PRN Pain 09/21/21 04/23/24 04/18/24 History lisinopril 20 mg tablet 20 mg PO DAILY 09/21/21 04/23/24 Unknown History loratadine 10 mg tablet 10 mg PO DAILY PRN Allergy Symptoms 09/21/21 04/23/24 Unknown History metoprolol tartrate 50 mg tablet 50 mg PO DAILY 09/21/21 04/23/24 04/25/24 06:15 History tramadol 50 mg tablet 50 mg PO TID PRN Pain 09/21/21 04/23/24 Unknown History metformin 500 mg tablet 500 mg PO DAILY 04/23/24 04/23/24 Unknown History ranitidine HCl 150 mg tablet 150 mg PO BEDTIME 04/23/24 04/23/24 Unknown History simethicone 80 mg chewable tablet 80 mg PO QID PRN Abdominal 04/23/24 04/23/24 Unknown History Discomfort Exam Airway Mallampati Class: II TM Dist: >3cm Neck ROM: Full Assessment and Plan Assessment Anesthesia Assessment: Anesthesia Plan Discussed Final Anesthetic Review Family History of Problems with Anesthesia: No History of Problems with Anesthesia: No NPO: Yes ASA Class: III Final Preanesthetic Review: No Changes in Pt Med Stat, Meds/Allgs Chart Reviewed, Consent Obtained/Reviewed and Anes Risks/Benef Reviewed Patient Risk: Intermediate Procedure Risk: Low Anesthetic Plan Anesthetic Plan: TIVA Disposition: Standard PACU
--- OUTSIDE RECORDS SUMMARY | 2024-04-25 07:56 | XMS_ITS ---
Author Organization [facility] Address [address] [place] [address] Care Team Providers Care Talent Acquisition Specialist Name Role Phone PATRIC MUNROE MD Primary Care Provider Sherwin Martinez Jr Unavailable [phone] ALLERGIES Allergen (clinical drug ingredient) Drug/Non Drug [...] unspecified whether esophagitis present (K21.9) Active confirmed [id number] VITAL SIGNS BMI 39.76 kg/m2 03/20/2024 Blood pressure systolic 00 mm Hg 03/20/20 24 Blood pressure diastolic 00 mm Hg 024 Height 66.75 in 03/20/2024 Weight 252 lbs 03/20/2024 Encounters Encounter Location Date Provider Diagnosis [facility] [address] [place] [address] 03/20/2024 Sherwin Lama Jr Colon cancer screening [...] Year, Reason: Provider Name:Sherwin escobedo Jr, 04/25/2024 09:10:00 AM, [address] [place] [address] , [place], [place], [phone], Progress Notes * Examination Category Sub-Category Detail Notes General Examination GENERAL APPEARANCE: in no ac moe distress HEAD: normocephalic EYES: sclera non-icteric NECK/THYROID: no lymphadenopathy HEART: S1, S2 normal, no mu rmurs CHEST: normal shape and exp ansion LUNGS: clear to auscultatio n bilaterally ABDOMEN: soft, nontender, non distended, bowel sounds present, no organomegaly SKIN: anicteric EXTREMITIES: no clubbing, cyanosi s, or edema PSYCH: cognitive function i ntact ORAL CAVITY: mucosa moist
--- OUTSIDE RECORDS SUMMARY | 2024-04-25 07:56 | XMS_ITS | Patient Health Record ---
Author Organization [facility] Address [address] [place] [address] Care Team Providers Care Patternmaker Apprentice Metal Name Role Phone PATRIC MUNROE MD Primary Care Provider Unavaila Sherwin Livingston Jr Unavailable ALLERGIES Allergen (clinical drug ingredient) Drug/Non Drug Allergy documented on EMR Reaction Allergy Type Onset Date Status naproxen Naproxen Unknown Drug Allergy Active gabapentin Gabapentin Unknown Drug Allergy Activ e fluoxetine Fluoxetine Unknown Drug Allergy Activ e amlodipine Amlodipine Besylate Unknown Drug Allergy Active REASON FOR REFERRAL Referring Provider First Name PATRIC Referring Provider Last Name LUDWIG Referred Organization [facility] Referred Provider Sherwin Lama Jr Referred Address [address],[place], [place],[address], Referred Provider Specialty Gastroentero logy General Notes Rocío Frederick 024 02:55:59 PM EST > requested a [facility] for visit with Dr. Lama on [phone] Referral Priority Routine MEDICATIONS Medication SIG (Take, [...] history of colon cancer (Z80.0) Active confirmed 718074835 Problem lobsterman (current) use of non-steroidal anti-inflammatories (NSAID) (Z79.1) Active confirmed 279962562 Problem lobsterman (current) use of oral hypoglycemic drugs (Z79.84) Active confirmed [id number] Problem Gastroesophageal reflux disease, unspecified whether esophagitis present (K21.9) Active confirmed 730931530 VITAL SIGNS Blood pressure diastolic 00 mm Hg 03/20/2024 Height 66.75 in 03/20/2024 Blood pressure systolic 00 mm Hg 03/20/2024 Weight 252 lbs 03/20/2024 BMI 39.76 kg/m2 03/20/2024 Encounters Encounter Location Date Provider Diagnosis [facility] Out[facility] [address] [place], [place] [phone] 04/25/2024 Sherwin Lama Jr [address] [place] [address] 03/20/2024 Sherwin Lama Jr Colon cancer screening [...] 03/20/2024 Next Appt Details Provider Name:Sherwin escobedo Jr, 04/25/2024 09:10:00 AM, [address] [place] [address] , [place], [place], [phone], Insurance Providers Payer Name Payer Address Payer Phone Subscriber Number Group Number Insured Name Patient Relationship to Insured Coverage Start Date Coverage End Date [place] [facility] [address] [place] [address] [id number] LENA MALLORY Self - patient is the insured MEDICAL (GENERAL) HISTORY Medical History History ICD Code Gastroesophageal reflux disease Back and neck pain Varicose veins Hypertension Depression Elevated body mass index Colonoscopy 02/01, Endometrial hyperplasia/abnormal uterine bleeding Surgical History Surgery Date(Month/Year) Tubal ligation Cholecystectomy Back surgery IUD placement
[2024-04-25 08:04] VITALS: BMI 39.9
[2024-04-25 08:09] VITALS: BP 143/80; PULSE 89; RESP 15; TEMP 36.1; O2SAT 97
[2024-04-25] MEDS: Lactated Ringers 1,000 ML 100 ML IVCONT (08:22)
[2024-04-25 08:30] LABS: Glucose, Whole Blood 93 mg/dL (60-115)
--- NOTE | 2024-04-25 08:39 | MHC.SHP ---
Pre-Procedural Eval Section A - 24 Hr Update-Section A only Date of Service: 04/25/24 Section B - Complete if H&P > 30 days Chief Complaint: screening,hx malignant neoplasm Details of Present Illness: see H&P no changes Relevant Family History (Specify if Yes): No Relevant Social History: None Present Medications: see Short Stay Collaborative assessment History of Previous Operations: No relevant previous surgery Allergies: Allergies Allergy/AdvReac Type Severity Reaction Status Date / Time amlodipine Allergy Unknown Verified 04/25/24 08:02 fluoxetine Allergy Unknown Verified 04/25/24 08:02 gabapentin Allergy Unknown Verified 04/25/24 08:02 naproxen Allergy Unknown Verified 04/25/24 08:02 Review of Systems Sugical H&P ROS: Negative: Constitution, Cardiovascular, Respiratory, Neurological, Psychiatric, Hem-Onc, Allergic/Immunologic, Gastrointestinal, Genitourinary, Musculoskeletal, Integumentary, Endocrine and Eyes/Ears/Nose/Throat Exam Surgical H&P Exam: Normal: HEENT, Normal: Heart, Normal: Lungs, Normal: Extremities, Normal: Abdomen, Normal: Skin and Normal: Neurological Plan Diagnosis/Plan: Unchanged I have reviewed the history and physical and performed a pertinent physical examination on my patient. No changes have occurred unless specified. Time Spent With Patient Time: Total time managing care of this patient today ____ minutes.
[2024-04-25 09:18] VITALS: BP 127/71; PULSE 80; RESP 16; TEMP 36.1; O2SAT 96
[2024-04-25 09:33] VITALS: BP 125/74; PULSE 67; RESP 16; TEMP 36.1; O2SAT 99
--- NOTE | 2024-04-25 09:44 | OP_ITS ---
DATE OF SERVICE: 04/25/2024 SURGEON: Sherwin Lama MD INDICATIONS: Colon cancer screening. PREOPERATIVE DIAGNOSIS: POSTOPERATIVE DIAGNOSIS: PROCEDURE PERFORMED: Colonoscopy to the terminal ilium. ESTIMATED BLOOD LOSS: COMPLICATIONS: ANESTHESIA: Monitored anesthesia care. ASSISTANTS: SPECIMENS: DESCRIPTION OF PROCEDURE: A history and physical was performed. The risks and benefits of the procedure were explained to the patient. Informed consent was obtained. The patient was placed in the left lateral decubitus position. A digital rectal exam was performed and was found to be normal. The Olympus pediatric video colonoscope was introduced into the rectum and advanced to the cecum. The cecum was identified by transillumination, palpation, and identification of ileocecal valve. Examination was performed. The scope was removed. She tolerated the procedure well and was returned to the recovery area in stable condition. FINDINGS: The terminal ileum was examined and appeared normal. The visualized colonic mucosa was within normal limits without evidence of masses or ulcers. No polyps were identified. The quality of the prep was good. Retroflexed examination showed hypertrophic anal papillae and internal hemorrhoids. IMPRESSION: Normal colonoscopy. RECOMMENDATION: 1. Follow up as needed. 2. Repeat colonoscopy is recommended in 5 years because of family history. MD KARINA Barfield/REBEKAH / [id number]
== END 2024-04-25 10:10 | disposition home or self-care (01) ==
PROVIDERS: PCP Registered Nurse; Visit Provider Internal Medicine Gastroenterology
PROC: 0DJD8ZZ Inspection of Lower Intestinal Tract, Via Natural or Artificial Opening Endoscopic (ICD-10-PCS; CPT 45378; principal; 2024-04-25 09:10)
DX: Z12.11 Encounter for screening for malignant neoplasm of colon (principal); K62.89 Other specified diseases of anus and rectum; K64.8 Other hemorrhoids; Z80.0 Family history of malignant neoplasm of digestive organs; I10 Essential (primary) hypertension; K21.9 Gastro-esophageal reflux disease without esophagitis; Z90.49 Acquired absence of other specified parts of digestive tract; Z98.51 Tubal ligation status; Z79.899 Other long term (current) drug therapy
CPT/HCPCS: 45378; 82947; J2003; J2704

== ENCOUNTER 2024-04-28 14:24 | Outpatient (AMB) | payer MEDICAID, SELFPAY ==
--- NOTE | 2024-04-28 14:31 | MHC.OFFVIS ---
Vital Signs 04/28/24 14:32 Height 5 ft 6 in Weight 247 lb BMI 39.9 BP 122/84 Intake Visit Reasons: Annual/ Do not RS Mud Analysis Operator Required: No Information Interpreted: non-clinical & clinical Assistant Financial Accountant: Assistant Financial Accountant Present (Celestina Carlisle GERMAN) Accompanied by: Self / Same As Patient Allergies amlodipine Allergy (Verified 04/28/24 14:41) Unknown fluoxetine Allergy (Verified 04/28/24 14:41) Unknown gabapentin Allergy (Verified 04/28/24 14:41) Unknown naproxen Allergy (Verified 04/28/24 14:41) Unknown Post menopausal: Yes HPI Comments Details: Presenting for annual exam. No complaints. Last Pap/HPV was negative in 10/05 Last Mammogram was BI-RADS 1 in 01/07 Last Colonoscopy was done in 05/10, the recommendation was to repeat in 5 years [facility] Medical History History of use of contraceptive intrauterine device (IUD) Endometrial hyperplasia Depression Neck pain Back pain GERD (gastroesophageal reflux disease) Hypertension Varicose veins of both legs with edema Surgical History Hx of varicose vein ligation Hx of tubal ligation H/O colonoscopy History of back surgery Hx of cholecystectomy Family History Father Colon cancer Mother Heart attack COPD (chronic obstructive pulmonary disease) Social History Household Members Other:: daughter Housing: Condominium Alcohol intake: never Patient Tobacco Use Status: Former Tobacco user Female Reproductive History Menstrual Date of last pap smear: 09/23/21 Date of Mammogram: 12/24/23 Review of Systems Const All systems reviewed & are unremarkable except as noted in HPI and below Card Reports as per HPI Resp Reports as per HPI GI Reports as per HPI and Reports no additional complaints Reports as per HPI Physical Exam Const General: cooperative, healthy appearing and comfortable Chest Chest palpation & inspection: normal inspection of the chest and normal palpation of entire chest wall Breast/axilla inspection: normal inspection of the breasts and normal inspection of the axillae Breast/axilla palpation: normal palpation of the breasts, normal palpation of the axillae and no axillary lymphadenopathy Resp Effort & Inspection: normal respiratory effort Auscultation: clear to auscultation bilaterally Percussion: percussion normal Cardio Palpation: normal PMI Rate: regular rate Rhythm: regular rhythm Heart sounds: no murmurs and no rubs Peripheral pulses: Peripheral pulses 2+ throughout GI Inspection: Yes normal to inspection Palpation (GI): Soft to palpation, nontender, no guarding, not rigid and No hepatosplenomegaly present Percussion: Yes normal to percussion Auscultation: normal bowel sounds Rectal Exam - Female: deferred General: Yes bladder normal to palpation External Female Exam: No lesion Speculum Exam - Vagina: normal appearance of the vagina, normal palpation, normal vaginal discharge and not erythematous Speculum Exam - Cervix: normal appearance of the cervix and normal palpation Bimanual exam- vagina & uterus: normal bimanual exam, normal palpation, uterine size normal, bladder normal to palpation, consistency normal and normal palpation Bimanual Exam- Adnexa, other: normal adnexae, no masses and no tenderness Assessment & Plan Assessment & Plan (1) Well woman exam: Code(s): Z01.419 - Encounter for gynecological examination (general) (routine) without abnormal findings Category: Medical Plan: Co testing not indicated this year. Counseled the patient about the recommended dietary allowance of 1200 mg of Calcium & 600 IU of vitamin D. Instructions given the patient to schedule next screening Mammogram in 01/08. The patient was instructed to perform monthly self-breast exams and schedule annual exam in a year. All questions answered and the patient verbalized understanding. Coding Level of Care Code Est Pt Prev Care 40-64y(63373) Diagnoses Well woman exam Z01.419
[2024-04-28 14:32] VITALS: BP 122/84; BMI 39.9
== END 2024-04-28 15:11 | disposition home or self-care (01) ==
LOC: HO.HWS 14:24
PROVIDERS: PCP Registered Nurse; Visit Provider Obstetrics & Gynecology
DX: Z01.419 Encounter for gynecological examination (general) (routine) without abnormal findings (principal)
CPT/HCPCS: 99396; 99459

== ENCOUNTER → 2024-04-28 14:24 | Outpatient (BNVA) | payer MEDICAID, SELFPAY | PROVIDERS: PCP Registered Nurse; Visit Provider Obstetrics & Gynecology | DX: Z01.419 Encounter for gynecological examination (general) (routine) without abnormal findings (principal) | CPT/HCPCS: 99396; 99459 ==

== ENCOUNTER 2024-05-26 10:16 | Outpatient (REF) | payer MEDICAID, SELFPAY ==
--- OUTSIDE RECORDS SUMMARY | 2024-05-26 11:09 | XMS_ITS | Encounter Summary ---
Author Organization [employer] Address [address] [place] [address] Care Team Providers Care Slitter And Cutter Operator Name Role Phone Divya Frye Primary Care Provider [phone] Reason for Visit * Reason Onset Date Comments Med Refill 12/25/2023 Encounter Details Date Type Department Care Team ([facility] st Contact Info) Description 12/25/[address] [facility] MEDICINE [address] [place] [address] Divya Frye FNP [address] [place] [id number] Med Refill Social History Tobacco Use Types Packs/Day Years Used Date Smoking Tobacco: Former Cigarettes Passive Smoke Exposure: Never Smokeless Tobacco: Never Depression Answer Date Recorded Patient Health Questionnaire-9 Score 12 05/25/2023 Patient Health Questionnaire-9 Score 12 05/25/2023 Last PHQ-9: Questionnaire Data Not on file 0 05/25/2023 Housing Stability Answer Date Recorded What is your housing situation today? I have ty diaz 01/29/[address] you li ve. Do you have problems with any of the following? None of the above 01/29/2023 Food Insecurity Answer Date Recorded Within the past 12 months, y ou worried that your food would run out before you got money to buy more: Never True 01/29/2023 Within the past 12 months,th e food you bought just didn't last and you didn't have enough money to get more: Never True Transportation Answer Date Recorded In the past 12 months, has l ack of transportation kept you from medical appts, meetings, work or from getting things needed for daily living? No 01/29/2023 Utilities Answer Date Recorded In the past 12 months, has t he electric, gas, oil or water company threatened to shut off services in your home? No 01/29/2023 Depression Answer Date Recorded Patient Health Questionnaire-2 Score 3 05/25/2023 Comments Unknown Sex and Gender Information Value Date Recorded Sex Assigned at Female 02/13/2022 10:15 AM EDT Legal Sex Female 10:15 AM EDT Gender Identity Female 02/13/2022 10:15 AM EDT Sexual Orientation Straight 02/13/2022 10 :15 AM EDT documented as of this encounter Miscellaneous Notes * Telephone Encounter - Yevgeniy Villalpando - 12/25/2023 10:45 AM EDT TC from pt requesting medication refill. Medications needing refill: traMADol (Ultram) 50 MG tablet To be sent to: [id number] - [place], [place] - [address] [place] [address] AT [facility] [place] documented in this encounter Plan of Treatment Upcoming Encounters Date Type Department Care Team (Late st Contact Info) Description 07/23/2024 3:15 PM EDT Clinical Support [facility] CHC MED & PEDS [address] [place] [address] Arabella Corey, RN [address] [place] [address] documented as of this encounter Visit Diagnoses Not on filedocumented in this encounter Additional Health Concerns Assessment Noted Time PHQ-9 Depression Total Score: 12 024 10:09 AM EST documented as of this encounter Care Teams Slitter And Cutter Operator Relationship Specialty Start Date End Date Divya Frye FNP [address] [place] [address] PCP - General Family Medicine 12/14/21 documented as of this encounter
--- OUTSIDE RECORDS SUMMARY | 2024-05-26 11:09 | XMS_ITS | Encounter Summary ---
Author Organization [employer] Address [address] [facility] [address] [place] [address] Care Team Providers Care Manufacturing Group Leader Name Role Phone Divya Frye DAVE Primary Care Provider [phone] Reason for Visit * Reason Onset Date Comments Chart Prep 05/21/2024 Encounter Details Date Type Department Care Team (Late st Contact Info) Description 05/21/2024 Telephone [facility] CHC MED & PEDS [address] [place] [address] Remberto Ritter [place] Chart Prep Social History Tobacco Use Types Packs/Day Years Used Date Smoking Tobacco: Former Cigarettes Passive Smoke Exposure: Never Smokeless Tobacco: Never Depression Answer Date Recorded Patient Health Questionnaire-9 Score 7 04/21/2024 Patient Health Questionnaire-9 Score 7 04/21/2024 Last PHQ-9: Questionnaire Data Not on file 0 04/21/2024 Housing Stability Answer Date Recorded What is your housing situation today? I have ty diaz 04/21/[address] you li ve. Do you have problems with any of the following? None of the above 04/21/2024 Food Insecurity Answer Date Recorded Within the past 12 months, y ou worried that your food would run out before you got money to buy more: Never True 04/21/2024 Within the past 12 months,th e food you bought just didn't last and you didn't have enough money to get more: Never True 09/2024 Transportation Answer Date Recorded In the past 12 months, has l ack of transportation kept you from medical appts, meetings, work or from getting things needed for daily living? No 04/21/2024 Utilities Answer Date Recorded In the past 12 months, has t he electric, gas, oil or water company threatened to shut off services in your home? No 04/21/2024 Depression Answer Date Recorded Patient Health Questionnaire-2 Score 2 04/21/2024 Internet Access Answer Date Recorded Internet Access Q1 Yes 04/21/2024 Internet Access Q2 Not on file 04/21/2024 Comments Unknown Sex and Gender Information Value Date Recorded Sex Assigned at Female 02/13/2022 10:15 AM EDT Legal Sex Female 10:15 AM EDT Gender Identity Female 02/13/2022 10:15 AM EDT Sexual Orientation Straight 02/13/2022 10 :15 AM EDT documented as of this encounter Miscellaneous Notes * Telephone Encounter - Remberto Rowe MA - 05/21/2024 3:42 PM EST Chart Prep Labs: done Images: done Vaccines due: yes Referrals: pending appt Screenings: colonoscopy Overdue care gaps: Sbirt, PISQ documented in this encounter Plan of Treatment Upcoming Encounters Date Type Department Care Team (Late st Contact Info) Description 07/23/2024 3:15 PM EDT Clinical Support [facility] CHC MED & PEDS [address] [place] [address] Arabella Corey, RN [address] [place] [address] documented as of this encounter Visit Diagnoses Not on filedocumented in this encounter Additional Health Concerns Assessment Noted Time PHQ-9 Depression Total Score: 7 04/21/19 25 9:31 AM EST documented as of this encounter Care Teams Manufacturing Group Leader Relationship Specialty Start Date End Date Divya Frye FNP [address] [place] [address] PCP - General Family Medicine 12/14/21 documented as of this encounter
--- OUTSIDE RECORDS SUMMARY | 2024-05-26 11:09 | XMS_ITS | Clinical Summary ---
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 Name Role Phone Divya Frye DAVE Primary Care Provider [phone] Allergies Active Allergy Reactions Criticality Noted Date Comments Amlodipine Rash Low 03/30/2010 Cetirizine Itching 08/12/2021 Other reaction(s): Tight chest Fluoxetine 02/09/2012 Other reaction(s): paranoia, dizziness, closed in Gabapentin 03/30/2010 Naproxen 03/30/2010 Other reaction(s): face swelled Nitrofurantoin 10/04/2017 Other reaction(s): hand and feet tingling, hand and feet tingling Senna 08/24/2014 Other reaction(s): facial rash Medications hydroCHLOROthia zide (HYDRODiuril) 25 MG tabletIndicatio ns:Essential hypertension TAKE 1 TABLET(25 MG) BY MOUTH IN THE MORNING 90 tablet 3 12/13/19 24 Active fluticasone (Flonase) 50 MCG/ACT nasal sprayIndication s:Seasonal allergic rhinitis, unspecified trigger SHAKE LIQUID AND USE 2 SPRAYS IN EACH NOSTRIL EVERY MORNING NEEDED 16 g 12/13/19 24 Active buPROPion SR (Wellbutrin SR) 200 MG 12 hr tablet TAKE 1 TABLET(200 MG) BY MOUTH TWICE DAILY. DO NOT CRUSH, CHEW, OR SPLIT 180 tablet 01/07/20 24 Active lidocaine (Lidoderm) 5 % patchIndication s:Chronic bilateral low back pain without sciatica APPLY 1 PATCH TOPICALLY TO THE SKIN EVERY DAY. MAY WEAR UP TO 12 HOURS. NEEDED FOR PAIN 30 patch 01/07/20 24 Active ibuprofen 800 MG tabletIndicatio ns:Chronic bilateral low back pain without sciatica TAKE 1 TABLET BY MOUTH THREE TIMES DAILY NEEDED 100 tablet 1 01/07/20 24 Active lidocaine (Lidoderm) 5 % patchIndication s:Chronic bilateral low back pain without sciatica APPLY 1 PATCH TOPICALLY TO THE SKIN EVERY DAY. MAY WEAR UP TO 12 HOURS. NEEDED FOR PAIN 90 patch 3 01/07/20 24 Active metoprolol tartrate (Lopressor) 50 MG tabletIndicatio ns:Essential hypertension TAKE 1 TABLET(50 MG) BY MOUTH EVERY DAY 90 tablet 3 01/25/20 24 Active cyclobenzaprine (Flexeril) 5 MG tabletIndicatio ns:Chronic bilateral low back pain without sciatica TAKE 1 TABLET BY MOUTH TWICE DAILY NEEDED 90 tablet 3 01/25/20 24 Active loratadine (Claritin) 10 MG tabletIndicatio ns:Seasonal allergic rhinitis, unspecified trigger TAKE 1 TABLET BY MOUTH EVERYDAY NEEDED 90 tablet 3 02/04/20 24 Active D3-1000 25 MCG (1000 UT) capsule TAKE 1 CAPSULE BY MOUTH EVERY MORNING 90 capsule 3 02/04/20 24 Active traMADol (Ultram) 50 MG tabletIndicatio ns:Chronic bilateral low back pain, unspecified whether sciatica present Take 1 tablet (50 mg) by mouth if needed each day for severe pain. 15 tablet 04/30/19 25 Active senna-docusate sodium (Senokot-S) 8.6-50 MG tabletIndicatio ns:Constipation , unspecified constipation type Take 1-2 tablets by mouth if needed each day for constipation . 60 tablet 3 05/26/19 25 026 Active docusate sodium (Colace) 100 MG capsuleIndicati ons:Other constipation TAKE 1 CAPSULE BY MOUTH TWICE A DAY 180 capsule 3 01/14/20 24 025 Discontinued( erapy completed) traMADol (Ultram) 50 MG tabletIndicatio ns:Chronic bilateral low back pain, unspecified whether sciatica present Take 1 tablet (50 mg) by mouth if needed each day for severe pain. Do not start before March 28, 2024. 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 No findings of fracture or listhesis. Varying degrees of minimal central stenosis and mild to moderate foraminal narrowing as details above. Partially visualized spondylotic changes as well as a focus of sclerosis involving T3. Small disc bulges at T1-T2 and T2-T3. Consider dedicated examination of the thoracic spine if there is any clinical concern. Referral to [facility] sent 09/01/23 Numbness and tingling in left hand 08/21/2023 Assessment & Plan (08/21/2023 9:26 AM EDT): Reviewed EMG report with pt: 08/16/23 borderline study MRI cervical spine pending Healthcare maintenance 12/05/2022 Overview (05/26/2024): Contraception: tubal ligation (also w/ Mirena placed October 2021) Mammo: 12/24/23: [place] [facility] [place] September 2021, NIL/-HPV. Following with Dr. Benitez. C-scope: Apr 2024. Repeat 5 years d/t fam hx Smoking status: non-smoker Assessment & Plan (12/05/2022 7:12 PM EDT): STI: declines asymptomatic testing Contraception: tubal ligation (also w/ Mirena placed October 2021) Mammo: Last in record 10/2020: BIRADS-1. Reports upcoming appt scheduled. PAP: 02/2017, NIL/-HPV. Following with Dr. Benitez - [facility]. C-scope: Last in 2019, advised 5 yr f/u due to small polyp. Smoking status: non-smoker Lipids: repeat ordered Vaccines: bivalent COVID and tetanus booster administered today Abnormal uterine bleeding 12/05/2022 Overview (05/27/2023): ?? Followed by [facility]OR[facility]ORDINATOR - Dr. Benitez ?? Mirena IUD placed 11/09/21 ?? Jan 2022: [facility] negative for endometrial hyperplasia and/or malignancy. Repeat w/o malignancy. Assessment & Plan (12/05/2022 6:55 PM EDT): Provider to reach out to [facility] RECORDS COORDINATOR regarding results if available at this time Varicosities of leg 02/22/2015 Assessment & Plan (12/05/2022 7:06 PM EDT): Continues with compression stockings and elevation Assessment & Plan (09/11/2022 1:15 PM EDT): DME request for thigh-high stockings placed Obesity 02/22/2015 Impaired glucose tolerance 02/22/2015 Essential hypertension 02/22/2015 Assessment & Plan (05/26/2024 9:31 AM EST): BP goal < 140/90 mmHg, well controlled Continue: Metoprolol 50mg daily hydrochlorothiazide 25mg daily -Continue with low salt diet and routine physical activity/movement Assessment & Plan (04/21/2024 9:34 AM EST): BP goal < 140/90 mmHg, well controlled Continue: Metoprolol 50mg daily hydrochlorothiazide 25mg daily -Continue with low salt diet and routine physical activity/movement Assessment & Plan (05/27/2023 5:14 PM EST): ?? BP goal < 140/90 mmHg, elevated in office, although reports well controlled at home Continue: ?? Metoprolol 50mg daily ?? hydrochlorothiazide 25mg daily -Continue with low salt diet and routine physical activity/movement Assessment & Plan (12/05/2022 6:38 PM EDT): ?? BP goal < 140/90 mmHg ?? Interest in de-prescribing as BP has been well controlled at home and in office Current medications: ?? Metoprolol 50mg daily ?? hydrochlorothiazide 25mg daily Decrease lisinopril to 10mg daily x 2 weeks, then discontinue medication -Continue with low salt diet and routine physical activity/movement Monitor BP daily while decreasing dose, encouraged to send portal message in 2 weeks with BP readings. Follow up if greater than goal at home Depressive disorder 02/22/2015 Constipation 02/22/2015 Overview (05/26/2024): Cont fiber-rich diet Start Senokot-S. Reviewed med safety and SE (call w/ any rxn/SE) Previous med: colace (discontinued May 2024 d/t no longer achieving therapeutic response) Chronic bilateral low back pain without sciatica 02/22/2015 Assessment & Plan (05/26/2024 10:00 AM EST): Hx of chronic low back pain - disc herniation s/p laminectomy being tx primarily with pharmacologic options: topical lidocaine patches, PO cyclobenzaprine, ibuprofen, and tramadol PRN Describes back pain as moderate to severe, and reports only uses tramadol sparingly when pain severe and other methods have not been successful Specialists: previously engaged with physical therapy and physiatry DME request for 10-in-1 pillow sent 05/26/24 Assessment & Plan (09/01/2023 4:09 PM EDT): Hx of chronic low back pain - disc herniation s/p laminectomy being tx primarily with pharmacologic options: topical lidocaine patches, PO cyclobenzaprine, ibuprofen, and tramadol PRN Describes back pain as moderate to severe, and reports only uses tramadol sparingly when pain severe and other methods have not been successful Specialists: previously engaged with physical therapy and physiatry Assessment & Plan (08/21/2023 9:16 AM EDT): Hx of chronic low back pain - disc herniation s/p laminectomy being tx primarily with pharmacologic options: topical lidocaine patches, PO cyclobenzaprine, ibuprofen, and tramadol PRN Describes back pain as moderate to severe, and reports only uses tramadol sparingly when pain severe and other methods have not been successful Specialists: previously engaged with physical therapy and physiatry Sent in refill of Tramadol daily PRN. Reviewed med safety and SE Assessment & Plan (12/05/2022 6:47 PM EDT): ?? Hx of chronic low back pain - disc herniation s/p laminectomy being tx primarily with pharmacologic options: topical lidocaine patches, PO cyclobenzaprine, ibuprofen, and tramadol PRN ?? Describes back pain as moderate to severe, and reports only uses tramadol sparingly when pain severe and other methods have not been successful ?? Specialists: previously engaged with physical therapy and physiatry ?? Sent in refill of Tramadol daily PRN. Reviewed med safety and SE Assessment & Plan (09/11/2022 1:22 PM EDT): ?? Hx of chronic low back pain being tx primarily with pharmacologic options: topical lidocaine patches, PO cyclobenzaprine, ibuprofen, and tramadol PRN ?? Describes back pain as moderate to severe, and reports only uses tramadol sparingly when pain severe and other methods have not been successful ?? Previous referrals to PT and physiatry, no consult notes or imaging available ?? Sent in refill of Tramadol, however decreased from TID to daily PRN. Reviewed med safety and SE Allergic rhinitis 02/22/2015 Overview (12/05/2022): ?? Continue loratadine 10mg daily PRN ?? Continue flonase PRN Encounters Date Type Department Care Team Description 05/26/2024 9:15 AM EST Office Visit [facility] [address] [place] [address] Uday, Divya, PATTERN CLERK Chronic bilateral low back pain without sciatica (Primary Dx); Encounter for immunization; Essential hypertension; Cervical spondylosis; Healthcare maintenance; Constipation, unspecified constipation type 05/26/2024 Travel 05/21/2024 Telephone [facility] [address] [place] [address] Remberto Ritter MA Chart Prep 04/30/2024 Refill [facility] [address] [place] [address] Divya Frye, PATTERN CLERK Chronic bilateral low back pain, unspecified whether sciatica present 04/21/2024 9:00 AM EST Office Visit [facility] [address] [place] [address] Divya Frye, PATTERN CLERK Papular lichenification (Primary Dx); Wears glasses; Essential hypertension; Healthcare maintenance 04/21/2024 Travel 04/17/2024 Telephone [facility] [address] [place] [address] Remberto Ritter MA Chart Prep 03/26/2024 3:15 PM EST Clinical Support [facility] [address] [place] [address] Arabella Corey RN Chronic bilateral low back pain without sciatica 03/26/2024 Refill [facility] [address] [place] [address] Arabella Corey RN Chronic bilateral low back pain, unspecified whether sciatica present 03/26/2024 Travel 03/03/2024 Refill [facility] [address] [place] [address] Arabella Corey RN Chronic bilateral low back pain, unspecified whether sciatica present 03/03/2024 Telephone [facility] [address] [place] [id number] Divya Frye, PATTERN CLERK Med Refill from Last 3 Months Immunizations Name Administration Dates Next Due DTP 03/16/2006 HepB-CpG 12/21/2023 Influenza Injectable Quadriv alant Preservative Free IIV4 MDCK 01/01/2023,01/15/2022 Influenza injectable quadriv alent IIV4 with preservative 05/22/2017,02/22/2015 Influenza injectable quadriv alent preservative free 02/17/2021,02/06/2020,03/24/2019,04/24,05/04/2016 Influenza, IIV3, injectable 01/01/2012, 1,03/16/2006 Influenza, Injectable, MDCK, preservative free 12/21/2023 Influenza, Split (incl. francisco fied surface antigen) 12/18/2012 Pfizer Covid-19 Vaccine 12+ Bivalent 12/05/2022 Pneumococcal Conjugate PCV 20 05/26/2024 Pneumococcal Polysaccharide PPSV23 08/13/2008 TD (adult), 2 Lf tetanus tox oid, preservative free, adsorbed 12/05/2022,03/16/2006 Tdap 10/04/2011 Zoster, Recombinant 02/22/2024,12/21/2023 Family History Medical History Relation Name Comments Colon cancer Father COPD Mother Heart disease Mother Relation Name Status Comments Father Mother Social History Tobacco Use Types Packs/Day Years [...] Orientation Straight 02/13/2022 10 :15 AM EDT Last Filed Vital Signs Vital Sign Reading Time Taken Comments Blood Pressure 136/69 05/26/2024 9:28 AM EST Pulse 70 05/26/2024 9:28 AM EST Temperature 36.5 ??C (97.7 ??F) 05/26/2024 9 :28 AM EST Respiratory Rate 20 05/26/2024 9:28 AM EST Oxygen Saturation 98% 05/26/2024 9:2 8 AM EST Inhaled Oxygen Concentration - - Weight 114 kg (252 lb 2 oz) 05/26/2024 9:28 AM EST Height 168.1 cm (5' 6.19 ) 05/26/2024 9 :28 AM EST ht with shoes she refuse Body Mass Index 40.46 05/26/2024 9:28 AM EST Plan of Treatment Upcoming Encounters Date Type Department Care Team ([facility] st Contact Info) Description 07/23/2024 3:15 PM EDT Clinical Support [facility] [address] [place] [address] Arabella Corey, RN [address] [place] [address] Health Maintenance Due Date Last Done Comments CT Colonography 1973 FIT DNA/Cologuard 1973 FIT 1973 FOBT 1973 Sigmoidoscopy 1973 Alcohol/Substance Use Screening 1985 Family Planning (PISQ) 1988 Pap Smear 1994 Colonoscopy 01/16/2024 01/15/2019 Colorectal Cancer Screening 01/16/2024 Hepatitis B Vaccines (2 of 2 - CpG 2-dose series) 01/18/2024 12/21/2023 Mammogram 12/23/2024 12/24/2023, 10/2022, 10/15/2020, Additional history exists Depression Screening 04/21/2025 04/21/2024, 04/21/19 25 SDOH Screening 04/21/2025 04/21/2024 Tobacco Screening 04/21/2025 04/21/2024 Cervical Cancer Screening 09/21/2026 HPV/Cotest 09/21/2026 09/21/2021, 06/0 11/2021, 02/14/2017 Lipid Panel 01/09/2028 01/08/2023, 02/17/2021 DTaP/Tdap/Td Vaccines (5 - Td or Tdap) 12/05/2032 12/05/2022, 10/04/2011, 03/16/2006, Additional history exists RSV Patients and Patients Aged 60 years or older (1 - 1-dose 75+ series) 2048 HIV Screening Completed 09/21/2021, 09/21/2021 Hepatitis C Screening Discontinued 09/21/2021, 022 COVID-19 Vaccine Completed 12/21/2023, , 12/05/2022, Additional history exists Influenza Vaccine Completed 12/21/2023, , 01/15/2022, Additional history exists Zoster Vaccines Completed 02/22/2024, 12/21/2023 Pneumococcal Vaccine: 50+ Years Completed 05/26/2024, 08/13/2008 HIB Vaccines Aged Out No longer eligi ble based on patient's age to complete this topic HPV Vaccines Aged Out No longer eligi ble based on patient's age to complete this topic Hepatitis A Vaccines Aged Out No long er eligible based on patient's age to complete this topic IPV Vaccines Aged Out No longer eligi ble based on patient's age to complete this topic Meningococcal Vaccine Aged Out No saurabh rosalva eligible based on patient's age to complete this topic RSV under 20 months Aged Out No longe r eligible based on patient's age to complete this topic Rotavirus Vaccines Aged Out No longer eligible based on patient's age to complete this topic Procedures Procedure Name Priority Date/Time Associated Diagnosis Comments GLUCOSE, WHOLE BLOOD Routine 04/25/2024 8:26 AM EST POCT SAMY-14 URINE DRUG SCREEN Routine 03/26/2024 3:18 PM EST Chronic bilateral low back pain without sciatica BI MAMMOGRAM SCREENING TOMOSYNTHESIS BILATERAL Routine 12/24/2023 3:15 PM EDT LIPID PANEL, STANDARD Routine 01/08/2023 12:05 PM EDT Healthcare maintenance ZDANIA HISTORICAL HIV AB/AG Routine 09/21/2021 2:52 PM EDT ZDANIA HISTORICAL HPV E6/E7 RFLX ALFRED 16 18/45 Routine 09/21/2021 2:22 PM EDT COLONOSCOPY Routine 01/15/2019 from Last 3 Months or Most Recently Relevant to Health Maintenance Results * Glucose, Whole Blood (04/25/2024 8:26 AM EST) Glucose, Whole Blood 93 60 - 115 mg/dL [facility] Comment:METER #: [id number] 04/25/2024 8:26 AM EST 04/25/2024 8:30 AM EST us Generic External Data Provider LAB BLOOD ORDERAB LES Final Result [facility] [address] [place] [phone] * POCT SAMY-14 Urine Drug Screen (03/26/2024 3:18 PM EST) TCA, Urine Positive Urine Urine specimen obtained by clean catch procedure / Unknown 03/26/2024 3:18 PM EST Narrative Arabella Corey RN - 03/26/2024 3:18 PM EST Lot# [id number] Exp: 03-22-25 us Divya Frye PATTERN CLERK POINT OF CARE TEST ENTER/EDIT ORDERABLES Final Result * BI Mammogram Screening Tomosynthesis Bilateral (12/24/2023 3:15 PM EDT) Anatomical Region Laterality Modality Breast Bilateral Mammography 12/24/2023 3:15 PM EDT Narrative 01/08/2024 9:24 AM EDT ? [facility] ? [address] ?[place] [address] ? Mammography Report ? Signed ? Patient: Champagne,Stephanie ?MR#: [id number] ?? [id number] ? : 1975 ?Acct:[id number] ? Age/Sex: 48 / F ?ADM Date: 12/24/23 ? Loc: HO.MAMMO ? Attending Dr: Divya Frye PATTERN CLERK ? Ordering Physician: Divya Frye PATTERN CLERK ?Results: 1Negat ?? ismael ? Date of Service: 12/24/23 ?Follow Up: 1 Year From Orig ?? inal Mammogram ? Procedure(s): MM tomosynthesis screening BI ?? Accession Number(s): [id number] ? cc: Divya Frye PATTERN CLERK ? EXAMINATION: ?? MM SCREENING DIGITAL BREAST TOMOSYNTHESIS, BILATERAL ? CLINICAL INFORMATION: ? Screening. Asymptomatic. ? COMPARISON: ?? Mammography: Comparison is made with available priors ? TECHNIQUE: ?? Digital breast mammography with tomosynthesis is performed in both the ?? craniocaudal and mediolateral oblique views along with computer-aided ?? detection (CAD). ? FINDINGS: ?? There are scattered areas of fibroglandular density (ACR BI-RADS breast ?? composition Category b). ? There are no significant masses, abnormal calcifications, or other ?? abnormalities. ? MM/MM tomosynthesis screening BI ?? IMPRESSION: ?? No mammographic evidence of malignancy. ? ASSESSMENT: ? BI-RADS BI-RADS 1 - Negative ? RECOMMENDATION: ?? Routine annual mammography screening. ? 1 year F/U ? This examination should not preclude the clinical evaluation of a ?? suspicious palpable abnormality. ? This patient's information was entered into a reminder system with a ?? target due date for their next mammogram. ? Electronically signed by: ??Carmen Cobb DO ??01/08/2024 09:21 AM EDT ? Dictated By: ?Carmen Cobb DO ? Signed By: ?<Electronically signed by Carmen Cobb, DO in OV> ? 01/08/24 0921 ? DD/ 1515 ? TD/TT: 12/24/23 1536 ? Ship Officer: ? Procedure Note Donotuseinterpreter, Image - 01/08/2024 [facility] [address] [place] [address] Mammography Report Signed Patient: Stephanie OwenMR#: [id number] : 1975Acct:[id number] Age/Sex: 48 / FADM Date: 12/24/23 Loc: HO.MAMMO Attending Dr: Divya Frye PATTERN CLERK Ordering Physician: Divya FryePResults: 1Negat ismael Date of Service: 12/24/23Follow Up: 1 Year From Orig inal Mammogram Procedure(s): MM tomosynthesis screening BI Accession Number(s): [id number] cc: Divya Frye EXAMINATION: MM SCREENING DIGITAL BREAST TOMOSYNTHESIS, BILATERAL CLINICAL INFORMATION: Screening. Asymptomatic. COMPARISON: Mammography: Comparison is made with available priors TECHNIQUE: Digital breast mammography with tomosynthesis is performed in both the craniocaudal and mediolateral oblique views along with computer-aided detection (CAD). FINDINGS: There are scattered areas of fibroglandular density (ACR BI-RADS breast composition Category b). There are no significant masses, abnormal calcifications, or other abnormalities. MM/MM tomosynthesis screening BI IMPRESSION: No mammographic evidence of malignancy. ASSESSMENT: BI-RADS BI-RADS 1 - Negative RECOMMENDATION: Routine annual mammography screening. 1 year F/U This examination should not preclude the clinical evaluation of a suspicious palpable abnormality. This patient's information was entered into a reminder system with a target due date for their next mammogram. Electronically signed by: Carmen Cobb DO 01/08/2024 09:21 AM EDT RP Dictated By: Carmen Cobb DO Signed By: <Electronically signed by Carmen Cobb DO in OV> 01/08/24920 DD/ 1515 TD/TT: 12/24/23 1536 Ship Officer: us Divya ACOSTA IMG BI PROCEDURES Edited Resul t - Final * (ABNORMAL) Lipid Panel, Standard (01/08/2023 12:05 PM EDT) Triglycerides 70 <150 mg/dL [facility] Comment:Desirable Triglyceri de: less than 150 mg/dLBorderline High Triglyceride 150-199 mg/dLHigh Triglyceride: 200-499 mg/dLVery High Triglyceride: greater than or equal to 5OO mg/dL Cholesterol 173 <200 mg/dL [facility] Comment:Desirable Cholestero l: less than 200 mg/dLBorderline High Cholesterol: 200-239 mg/dLHigh Cholesterol: greater than 239 mg/dL LDL Cholesterol Calculated 104(H) <100 mg/dL [facility] Comment:Desirable LDL: less than 100 mg/dLNear Optimal/Above Optimal LDL: 110- 129 mg/dLBorderline High LDL: 130-159 mg/dLHigh LDL: 160-189 mg/dLVery High LDL: greater than or equal to 190 mg/dL HDL Cholesterol 55 >40 mg/dL [facility] Comment:Desirable HDL: great er than 40 mg/dL Note: This HDL assay may give artificially low results in patients with liver disease. Blood Venous blood specimen / Unknown 01/08/2023 12:05 PM EDT 01/08/2023 1:00 PM EDT us Divya ACOSTA LAB BLOOD ORDERABLES Final Res ult [facility] [address] [place] [phone] [phone] * HIV AB/AG (09/21/2021 2:52 PM EDT) HIV AB/AG Nonreactive Nonreactive [facility] Comment: HIV-1 p24 Ag and/or HIV-1/HIV-2 Ab not detected. ?? A test result that is nonreactive does not exclude the possibility of exposure to or infection with HIV-1 and/or HIV-2. Nonreactive results in this assay for individuals with prior exposure to HIV-1 and/or HIV-2 may be due to antigen and antibody levels that are below the limit of detection of this assay. ?? The [employer] HIV Ag/Ab Combo assay result and supplemental assay results should be interpreted in conjunction with the patient's clinical presentation, history and other laboratory results. ??If the results are inconsistent with clinical evidence, additional testing is suggested to confirm the result. Hepatitis C Antibody Nonreactive Nonreactive [facility] Comment: Antibodies to HCV not detected; does not exclude early acute HCV infection. 09/21/2021 2:52 PM EDT Gaudencio Benitez MD HISTORICAL/NON ORDERABLE LABS Fi nal Result Performing Organization Address City/[facility]/ZIP Co de Phone Number [facility] [address] [place] [address], * HPV E6/E7 RFLX ALFRED 16 18/45 (09/21/2021 2:22 PM EDT) Pathologist [facility] [place] HPV mRNA E6/E7 rflx Not Detected Not Detected [facility] Comment: Methodology: Automotive Electrician-Mediated Amplification This assay detects E6/E7 viral messenger RNA (mRNA) from 14 high-risk HPV types (16,18,31,33,35,39,45,51,52,56,58,59,66,68). Cervical sources are required for HPV testing. If a vaginal source from a patient who has had a total hysterectomy with removal of cervix was submitted, please contact the testing laboratory for alternative testing options. For additional information, please refer to http://education.[employer].com/faq/DSV509f3 (This link if provided for information/ educational purposes only.) THIS TEST WAS PERFORMED AT: [facility] [address] [place] [address] [address] [place], [place] ??[phone] IQRA LOPEZ MD 09/21/2021 2:22 PM EDT Gaudencio Benitez MD HISTORICAL/NON ORDERABLE LABS Fi nal Result [facility] [address] * Colonoscopy (01/15/2019) Colonoscopy Normal Normal Historical Provider HEALTH MAINTENANCE Final Result from Last 3 Months or Most Recently Relevant to Health Maintenance Insurance [facility] C3 Care Teams Laminating Press Operator Relationship Specialty Start Date End Date Divya Frye FNP [address] [place] [address] PCP - General Family Medicine 12/14/21
--- OUTSIDE RECORDS SUMMARY | 2024-05-26 11:09 | XMS_ITS | Encounter Summary ---
Author Organization [employer] Address [address] [facility] 7t [place] [address] Care Team Providers Care Facility Service Manager Name Role Phone Divya Frye Primary Care Provider [phone] Reason for Visit * Reason Onset Date Comments Med Refill 04/30/2024 Encounter Details Date Type Department Care Team ([facility] st Contact Info) Description 04/30/2024 Refill [facility] [address] [place] [address] Divya Frye FNP [address] [place] [address] Chronic bilateral low back pain, unspecified whether sciatica present Social History Tobacco Use Types Packs/Day Years [...] encounter Miscellaneous Notes * Telephone Encounter - Rohini Allred - 04/30/2024 1:13 PM EST TC from pt requesting medication refill. Medications needing refill : traMADol (Ultram) 50 MG tablet To be sent to: [facility] #[id number] - [address] AT [facility] documented in this encounter Plan of Treatment Upcoming Encounters Date Type Department Care Team ([facility] st Contact Info) Description 07/23/2024 3:15 PM EDT Clinical Support [facility] [address] [place] [address] Arabella Corey, KO [address] [place] [address] documented as of this encounter Visit Diagnoses Diagnosis Chronic bilateral low back pain, unspecified whether sciatica present documented in this encounter Additional Health Concerns Assessment Noted Time PHQ-9 Depression Total Score: 7 04/21/19 25 9:31 AM EST documented as of this encounter Care Teams Facility Service Manager Relationship Specialty Start Date End Date Divya Frye FNP [address] [place] [address] PCP - General Family Medicine 12/14/21 documented as of this encounter
--- OUTSIDE RECORDS SUMMARY | 2024-05-26 11:09 | XMS_ITS ---
Author Organization [facility] Address [address] [place] [address] Care Team Providers Care Roof Assembler Name Role Phone PATRIC MUNROE MD Primary [...] unspecified whether esophagitis present (K21.9) Active confirmed [id number] VITAL SIGNS BMI 39.76 kg/m2 03/20/2024 Blood pressure systolic 00 mm Hg 03/20/20 24 Blood pressure diastolic 00 mm Hg 024 Height 66.75 in 03/20/2024 Weight 252 lbs 03/20/2024 Encounters Encounter Location Date Provider Diagnosis [facility] [address] [place] [address] 03/20/2024 Sherwin Lama Jr Colon cancer screening [...] Appt Details Follow Up: 1 Year, Reason: Progress Notes * Examination Category Sub-Category Detail Notes General Examination GENERAL APPEARANCE: in no ac ute mountain distress HEAD: normocephalic EYES: sclera non-icteric NECK/THYROID: no lymphadenopathy HEART: S1, S2 normal, no mu rmurs CHEST: normal shape and exp ansion LUNGS: clear to auscultatio n bilaterally ABDOMEN: soft, nontender, non distended, bowel sounds present, no organomegaly SKIN: anicteric EXTREMITIES: no clubbing, cyanosi s, or edema PSYCH: cognitive function i ntact ORAL CAVITY: mucosa moist
--- OUTSIDE RECORDS SUMMARY | 2024-05-26 11:09 | XMS_ITS | Patient Health Record ---
Author Organization [facility] Address [address] [facility] [address] [place] [address] Care Team Providers Care Cnc Grinder Name Role Phone PATRIC MUNROE MD Primary Care Provider Sherwin Martinez Jr Unavailable ALLERGIES Allergen (clinical drug ingredient) Drug/Non Drug Allergy documented on EMR Reaction Allergy Type Onset Date Status naproxen Naproxen Unknown Drug Allergy Active gabapentin Gabapentin Unknown Drug Allergy Activ e fluoxetine Fluoxetine Unknown Drug Allergy Activ e amlodipine Amlodipine Besylate Unknown Drug Allergy Active RESULTS Component Value Reference Range Notes Glucose, Whole Blood Reviewed date:04/25/2024 01:43:20 PM Interpretation: Performing Lab:[facility], [address] [place] [id number] Notes/Report: Glucose, Whole Blood 93 60-115 mg/dL METER # : [id number] REASON FOR REFERRAL Referring Provider First Name PATRIC Referring Provider Last Name LUDWIG Referred Organization [facility] Referred Provider Sherwin Lama Jr Referred Address [address] [place] [address],[address],[place], [place],[address], Referred Provider Specialty Gastroentero logy General Notes Rocío Frederick 024 02:55:59 PM EST > requested a [facility] referral from [facility] for visit with Dr. Lama on [phone] Referral Priority Routine MEDICATIONS Medication SIG (Take, [...] history of colon cancer (Z80.0) Active confirmed [id number] Problem terminal system operator (current) use of non-steroidal anti-inflammatories (NSAID) (Z79.1) Active confirmed [id number] Problem residential (current) use of oral hypoglycemic drugs (Z79.84) Active confirmed [id number] Problem Gastroesophageal reflux disease, unspecified whether esophagitis present (K21.9) Active confirmed 961077203 VITAL SIGNS Blood pressure diastolic 00 mm Hg 03/20/2024 Height 66.75 in 03/20/2024 Blood pressure systolic 00 mm Hg 03/20/2024 Weight 252 lbs 03/20/2024 BMI 39.76 kg/m2 03/20/2024 Encounters Encounter Location Date Provider Diagnosis [facility] [place] [address] [place], [place] [phone] 04/25/2024 Sherwin Lama Jr Colon cancer screening Z12.11 and Family history of colon cancer Z80.0 [facility] [address] [place] [address] 03/20/2024 Sherwin Lama Jr Colon cancer screening Z12.11 ; Gastroesophageal reflux disease, unspecified whether esophagitis present K21.9 and Family history of colon cancer Z80.0 ASSESSMENTS Encounter Date Diagnosis Assessment Notes Treatment Notes Treatment Clinical Notes 04/25/2024 Colon cancer screeni ng (ICD-10 - Z12.11) 04/25/2024 Family history of colon cancer (ICD-10 - Z80.0) 03/20/2024 Colon cancer screeni ng (ICD-10 - Z12.11) Colonoscopy material was printed 03/20/2024 Gastroesophageal reflux disease, unspecified whether esophagitis present (ICD-10 - K21.9) 03/20/2024 Family history of colon cancer (ICD-10 - Z80.0) PLAN OF TREATMENT Future Test Test Name Order Date COLONOSCOPY 08/29/2012 COLONOSCOPY 07/24/2018 COLONOSCOPY 03/20/2024 Insurance Providers Payer Name Payer Address Payer Phone Subscriber Number Group Number Insured Name Patient Relationship to Insured Coverage Start Date Coverage End Date MEDICAID OF [employer] [address] [place] [address] [id number] LENA MALLORY Self - patient is the insured MEDICAL (GENERAL) HISTORY Medical History History ICD Code Gastroesophageal reflux disease Back and neck pain Varicose veins Hypertension Depression Elevated body mass index Colonoscopy 02/01, Endometrial hyperplasia/abnormal uterine bleeding Surgical History Surgery Date(Month/Year) Tubal ligation Cholecystectomy Back surgery IUD placement
--- OUTSIDE RECORDS SUMMARY | 2024-05-26 11:09 | XMS_ITS | Encounter Summary ---
Author Organization [employer] Address [address] [facility] 7t [place] [address] Care Team Providers Care Equity Director Name Role Phone Divya Frye Primary Care Provider Encounter Details Date Type Department Care Team ([facility] Contact Info) Description 05/26/2024 9:15 AM EST Office Visit [facility] [address] [place] [address] Divya Frye FNP [address] [place] [address] Chronic bilateral low back pain without sciatica (Primary Dx); Encounter for immunization; Essential hypertension; Cervical spondylosis; Healthcare maintenance; Constipation, unspecified constipation type Social History Tobacco Use Types Packs/Day Years [...] AM EDT documented as of this encounter Last Filed Vital Signs Vital Sign Reading [...] Mass Index 40.46 05/26/2024 9:28 AM EST documented in this encounter Progress Notes * Divya Frye, DAVE - 05/26/2024 9:15 AM EST Subjective Patient ID: Stephanie Owen is a 48 y.o. female w/ PMH AUB followed by [facility], hypertension, and chronic back pain who presents who presents to the office for a follow up visit. HPI: Last PCP visit: 04/21/24. Followed with GI for colonoscopy and C [facility] for pelvic exam since last appt. Chronic pain: hx of cervical spondylosis, chronic bilat low back pain w/o sciatica, and right hip pain. Currently managed with combination pharm and non- pharm tx modalities. Tramadol 50mg daily PRN severe pain. Pain worsens over the winter. Review of Systems Constitutional: Negative for chills and fever. Respiratory: Negative for cough and wheezing. Cardiovascular: Negative for chest pain and palpitations. Gastrointestinal: Negative for diarrhea and vomiting. Musculoskeletal: Positive for back pain. Psychiatric/Behavioral: Negative for suicidal ideas. Visit Vitals BP 136/69 (BP Location: Right arm, Patient Position: Sitting, BP Cuff Size: Large adult) Pulse 70 Temp 97.7 ??F (36.5 ??C) (Oral) Resp 20 Ht 5' 6.19 (1.681 m) Comment: ht with shoes she refuse Wt 252 lb 2 oz (114 kg) SpO2 98% BMI 40.46 kg/m?? Smoking Status Former BSA 2.31 m?? Physical Exam Constitutional: Appearance: Normal appearance. HENT: Head: Atraumatic. Right Ear: External ear normal. Left Ear: External ear normal. Cardiovascular: Rate and Rhythm: Normal rate and regular rhythm. Pulmonary: Effort: Pulmonary effort is normal. Breath sounds: Normal breath sounds. Musculoskeletal: Lumbar back: No tenderness or bony tenderness. Right hip: Bony tenderness present. Comments: Paraspinal lumbar tenderness to palpation bilaterally Neurological: Mental Status: She is alert and oriented to person, place, and time. Psychiatric: Mood and Affect: Mood normal. Behavior: Behavior normal. Assessment/Plan Problem List Items Addressed This Visit Circulatory Essential hypertension Current Assessment & Plan BP goal < 140/90 mmHg, well controlled Continue: Metoprolol 50mg daily hydrochlorothiazide 25mg daily -Continue with low salt diet and routine physical activity/movement Digestive Constipation Overview Cont fiber-rich diet Start Senokot-S. Reviewed med safety and SE (call w/ any rxn/SE) Previous med: colace (discontinued May 2024 d/t no longer achieving therapeutic response) Relevant Medications senna-docusate sodium (Senokot-S) 8.6-50 MG tablet Musculoskeletal Cervical spondylosis Overview MRI cervical spine w/o contrast (08/23/23) - [...] there is any clinical concern. Referral to [facility] sent 09/01/23 Other Chronic bilateral low back pain without sciatica - Primary Current Assessment & Plan Hx of chronic low back pain - disc herniation s/p laminectomy being tx primarily with pharmacologicoptions: topical lidocaine patches, PO cyclobenzaprine, ibuprofen, and tramadol PRN Describes back pain as moderate to severe, and reports only uses tramadol sparingly when pain severe and other methods have not been successful Specialists: previously engaged with physical therapy and physiatry DME request for 10-in-1 pillow sent 05/26/24 Healthcare maintenance Overview Contraception: tubal ligation (also w/ Mirena placed October 2021) Mammo: 12/24/23: [place] [facility] [place] [facility] [place]: September 2021, NIL/-HPV. Following with Dr. Benitez. C-scope: Apr 2024. Repeat 5 years d/t fam hx Smoking status: non-smoker Relevant Orders Chlamydia/N. Gonorrhoeae RNA, TMA, Urogenitial Hepatitis C Viral RNA, Quantitative, Real-Time PCR RPR (Monitor) with Reflex to Titer HIV-1/2 Antigen and Antibodies, Fourth Generation, with Reflexes Albumin, Random Urine W/Creatinine Lipid Panel, Standard Hemoglobin A1c TSH with Reflex to Free T4 Comprehensive Metabolic Panel CBC auto differential Other Visit Diagnoses Encounter for immunization Relevant Orders PCV-20 VACCINE 6 wks + (Completed) Follow up: 3 months. Sooner PRN. documented in this encounter Miscellaneous Notes * Assessment & Plan Note - DAVE Lopez - 05/26/2024 10:00 AM EST Associated Problem(s): Chronic bilateral low back pain without sciatica Hx of chronic low back pain - disc herniation s/p laminectomy being tx primarily with pharmacologicoptions: topical lidocaine patches, PO cyclobenzaprine, ibuprofen, and tramadol PRN Describes back pain as moderate to severe, and reports only uses tramadol sparingly when pain severe and other methods have not been successful Specialists: previously engaged with physical therapy and physiatry DME request for 10-in-1 pillow sent 05/26/24 * Assessment & Plan Note - DAVE Lopez - 05/26/2024 9:31 AM ESTAssociated Problem(s): Essential hypertension BP goal < 140/90 mmHg, well controlled Continue: Metoprolol 50mg daily hydrochlorothiazide 25mg daily -Continue with low salt diet and routine physical activity/movement documented in this encounter Plan of Treatment Upcoming Encounters Date Type Department Care Team (Late st Contact Info) Description 07/23/2024 3:15 PM EDT Clinical Support [facility] [address] [place] [address] Arabella Corey, RN [address] [place], [place] [phone] Scheduled Orders Name Type Priority Associated Diagnoses Orde r Schedule Chlamydia/N. Gonorrhoeae RNA, TMA, Urogenitial Microbiology Routine Healthcare maintenance Expected: 05/26/2024, Expires: 05/26/2025 Hepatitis C Viral RNA, Quantitative, Real-Time PCR Lab Routine Healthcare maintenance Expected: 05/26/2024 (Approximate), Expires: 05/26/2025 RPR (Monitor) with Reflex to??Titer Lab Routine Healthcare maintenance Expected: 05/26/2024 (Approximate), Expires: 05/26/2025 HIV-1/2 Antigen and Antibodies, Fourth Generation, with Reflexes Lab Routine Healthcare maintenance Expected: 05/26/2024 (Approximate), Expires: 05/26/2025 Albumin, Random Urine W/Creatinine Lab Routine Healthcare maintenance Expected: 05/26/2024 (Approximate), Expires: 05/26/2025 Lipid Panel, Standard Lab Routine Healthcare maintenance Expected: 05/26/2024 (Approximate), Expires: 05/26/2025 Hemoglobin A1c Lab Routine Healthcare maintenance Expected: 05/26/2024 (Approximate), Expires: 05/26/2025 TSH with Reflex to Free T4 Lab Routine Healthcare maintenance Expected: 05/26/2024 (Approximate), Expires: 05/26/2025 Comprehensive Metabolic Panel Lab Routine Healthcare maintenance Expected: 05/26/2024 (Approximate), Expires: 05/26/2025 CBC auto differential Lab Routine Healthcare maintenance Expected: 05/26/2024, Expires: 05/26/2025 documented as of this encounter Visit Diagnoses Diagnosis Chronic bilateral low back pain without sciatica- Primary Encounter for immunization Essential hypertension Unspecified essential hypertension Cervical spondylosis Cervical spondylosis without myelopathy Healthcare maintenance Constipation, unspecified constipation type documented in this encounter Additional Health Concerns Assessment Noted Time PHQ-9 Depression Total Score: 7 04/21/19 25 9:31 AM EST documented as of this encounter Care Teams Equity Director Relationship Specialty Start Date End Date Divya Frye FNP [address] [place] [address] PCP - General Family Medicine 12/14/21 documented as of this encounter
--- OUTSIDE RECORDS SUMMARY | 2024-05-26 11:09 | XMS_ITS | Encounter Summary ---
Author Organization [employer] Address [address] [facility] 7 [place] [address] Care Team Providers Care Cream Beater Name Role Phone Divya Frye Primary Care Provider [phone] Reason for Visit * Reason Onset Date Comments Med Refill 08/22/2022 Appt w/PCP 08/22/2022 Encounter Details Date Type Department Care Team (Late st Contact Info) Description 08/22/2022 Telephone [facility] MEDICINE [address] [place] [address] Divya Frye FNP [address] [place] [address] Med Refill; Appt w/PCP Social History Tobacco Use Types Packs/Day Years Used Date Smoking Tobacco: Never Assessed Comments Unknown Sex and Gender Information Value Date Recorded Sex Assigned at Female 02/13/2022 10:15 AM EDT Legal Sex Female 10:15 AM EDT Gender Identity Female 02/13/2022 10:15 AM EDT Sexual Orientation Straight 02/13/2022 10 :15 AM EDT documented as of this encounter Miscellaneous Notes * Telephone Encounter - Maty Sheffield RN - 08/23/2022 3:30 PM EDT TC to pt, reviewed pt's last [facility] appt date and last time she received Tramadol. Explained that she has a new provider and will need to be seen before Tramadol would be considered. Pt agreeable. Pt scheduled to see Shivam Frye 09/04/22 @ 1pm for medication review. * Telephone Encounter - Shruti [place] - 08/22/2022 10:58 AM EDT TC from pt requesting med refill on Tramadol 50 Mg Tablet Please sent to [id number] - [place] - [address] [facility] documented in this encounter Plan of Treatment Upcoming Encounters Date Type Department Care Team (Late st Contact Info) Description 07/23/2024 3:15 PM EDT Clinical Support [facility] [address] [place] [address] Arabella Corey, RN [address] [place] [address] documented as of this encounter Visit Diagnoses Not on filedocumented in this encounter Care Teams Cream Beater Relationship Specialty Start Date End Date Divya Frye FNP [address] [place] [address] PCP - General Family Medicine 12/14/21 documented as of this encounter
--- OUTSIDE RECORDS SUMMARY | 2024-05-26 11:09 | XMS_ITS | Encounter Summary ---
Author Organization [employer] Address [address] [facility] 7t [place] [address] Care Team Providers Care Field Representative Name Role Phone Divya Frye Primary Care Provider [phone] Reason for Visit * Reason Onset Date Comments Med Refill 03/03/2024 Encounter Details Date Type Department Care Team ([facility] st Contact Info) Description 03/03/2024 Telephone [facility] [address] [place] [address] Divya Frye FNP [address] [place] [address] Med Refill Social History Tobacco Use Types [...] encounter Miscellaneous Notes * Telephone Encounter - Roland Cardona - 03/03/2024 3:31 PM EST TC from pt requesting medication refill. Medications needing refill : traMADol (Ultram) 50 MG tablet To be sent to: [facility][id number] documented in this encounter Plan of Treatment Upcoming Encounters Date Type Department Care Team (Late st Contact Info) Description 07/23/2024 3:15 PM EDT Clinical Support [facility] PEDS [address] [place] [address] Arabella Corey, KO [address] [place] [address] documented as of this encounter Visit Diagnoses Not on filedocumented in this encounter Additional Health Concerns Assessment Noted Time PHQ-9 Depression Total Score: 12 024 10:09 AM EST documented as of this encounter Care Teams Field Representative Relationship Specialty Start Date End Date Divay Frye FNP [address] [place] [address] PCP - General Family Medicine 12/14/21 documented as of this encounter
--- OUTSIDE RECORDS SUMMARY | 2024-05-26 11:09 | XMS_ITS ---
Author Organization [facility] Address [address] [place] [address] Care Team Providers Care Clothes Drier Repairer Name Role Phone PATRIC MUNROE MD Primary Care Provider Unavaila Sherwin Livingston Jr Unavailable REASON FOR VISIT family history,colonoscopy Encounters Encounter Location Date Provider Diagnosis [facility] Outpatient [address] [place], [place] [phone] 04/25/2024 Sherwin Lama Jr Colon cancer screening Z12.11 and Family history of colon cancer Z80.0 ASSESSMENTS Encounter Date Diagnosis Assessment Notes Treatment Notes Treatment Clinical Notes 04/25/2024 Colon cancer screening (ICD-10 - Z12.11) 04/25/2024 Family history of colon cancer (ICD-10 - Z80.0) PLAN OF TREATMENT No Information
--- OUTSIDE RECORDS SUMMARY | 2024-05-26 11:10 | XMS_ITS | Encounter Summary ---
Author Organization [employer] Address [address] 7t [place] [address] Care Team Providers Care Vp Securities Name Role Phone Divya Frye Primary Care Provider [phone] Reason for Visit * Reason Onset Date Comments Appointment Request 04/13/2023 Encounter Details Date Type Department Care Team ([facility] st Contact Info) Description 04/13/2023 Telephone [facility] MED[facility] [address] [place] [address] Divya Frye FNP [address] [facility] [place] [address] Appointment Request Social History Tobacco Use Types Packs/Day Years Used Date Smoking Tobacco: Former Cigarettes Passive Smoke Exposure: Never Smokeless Tobacco: Never Depression Answer Date Recorded Patient Health Questionnaire-9 Score 13 09/04/2022 Housing Stability Answer Date Recorded What is [...] Date Recorded Patient Health Questionnaire-2 Score 3 09/04/2022 Comments Unknown Sex and Gender Information Value Date Recorded Sex Assigned at Female 02/13/2022 10:15 AM EDT Legal Sex Female 10:15 AM EDT Gender Identity Female 02/13/2022 10:15 AM EDT Sexual Orientation Straight 02/13/2022 10 :15 AM EDT documented as of this encounter Miscellaneous Notes * Telephone Encounter - Manisha Styles RN - 04/17/2023 3:12 PM EST TC X1 to pt regarding message below. LVM to return call to nurses. * Telephone Encounter - Oswaldo Mcguire - 04/13/2023 9:59 AM EST Tc from patient requesting a appt with PCP stated was advised by the Physical therapist due to the possibility of a herniated disk documented in this encounter Plan of Treatment Upcoming Encounters Date Type Department Care Team (Late st Contact Info) Description 07/23/2024 3:15 PM EDT Clinical Support [facility] [address] [place] [address] Arabella Corey, RN [address] [place] [address] documented as of this encounter Visit Diagnoses Not on filedocumented in this encounter Additional Health Concerns Assessment Noted Time PHQ-9 Depression Total Score: 13 023 1:20 PM EDT documented as of this encounter Care Teams Vp Securities Relationship Specialty Start Date End Date Divya Frye FNP [address] [place] [address] PCP - General Family Medicine 12/14/21 documented as of this encounter
--- OUTSIDE RECORDS SUMMARY | 2024-05-26 11:10 | XMS_ITS | Encounter Summary ---
Author Organization [employer] Address [address] [facility] 7t [place] [address] Care Team Providers Care Gsa Coordinator Name Role Phone Divya Frye Primary Care Provider [phone] Reason for Visit * Reason Onset Date Comments Med Refill 09/21/2023 Encounter Details Date Type Department Care Team ([facility] st Contact Info) Description 09/21/2023 Telephone [facility] MEDICINE [address] [place] [address] Divya Frye FNP [address] [place] [address] Med Refill Social History Tobacco Use Types [...] encounter Miscellaneous Notes * Telephone Encounter - Oswaldo Mcguire - 09/21/2023 9:46 AM EDT TC from pt requesting medication refill. Medications needing refill : traMADol (Ultram) 50 MG tablet [id number] [place], [place] - [address] [place] [address] [facility] documented in this encounter Plan of Treatment Upcoming Encounters Date Type Department Care Team (Late st Contact Info) Description 07/23/2024 3:15 PM EDT Clinical Support [facility] CH[facility] MED & PEDS [address] [place] [address] Arabella Corey, RN [address] [place] [address] documented as of this encounter Visit Diagnoses Not on filedocumented in this encounter Additional Health Concerns Assessment Noted Time PHQ-9 Depression Total Score: 12 024 10:09 AM EST documented as of this encounter Care Teams Gsa Coordinator Relationship Specialty Start Date End Date Divya Frye FNP [address] [place] [address] PCP - General Family Medicine 12/14/21 documented as of this encounter
--- OUTSIDE RECORDS SUMMARY | 2024-05-26 11:10 | XMS_ITS | Encounter Summary ---
Author Organization [employer] Address [address] 7[address] [place] [address] Care Team Providers Care Farm Machinery Mechanic Name Role Phone Divya Frye DAVE Primary Care Provider [phone] Encounter Details Date Type Department Care Team (Latest Contact Info) Description 05/26/2024 Travel Social History Tobacco Use Types Packs/Day Years [...] AM EDT documented as of this encounter Plan of Treatment Upcoming Encounters Date Type Department Care Team ([facility] st Contact Info) Description 07/23/2024 3:15 PM EDT Clinical Support [facility] MED & PEDS [address] [place] [address] Arabella Corey, RN [address] [place] [address] documented as of this encounter Visit Diagnoses Not on filedocumented in this encounter Additional Health Concerns Assessment Noted Time PHQ-9 Depression Total Score: 7 04/21/19 25 9:31 AM EST documented as of this encounter Care Teams Farm Machinery Mechanic Relationship Specialty Start Date End Date Divya Frye FNP [address] [place] [address] PCP - General Family Medicine 12/14/21 documented as of this encounter
[2024-05-26 14:04] LABS: MANUAL DIFF FLAG NO
[2024-05-26 14:09] LABS: Basophils Absolute Auto 0.1 X10*3/uL (0.0-0.2); Basophils Percent Auto 0.7 % (0-2); Eosinophils Absolute Auto 0.1 X10*3/uL (0.0-0.4); Eosinophils Percent Auto 1.5 % (0-4); Hematocrit 42.3 % (37.0-47.0); Hemoglobin 13.9 g/dl (12.0-16.0); Imm Gran Abs Auto 0.04 X10*3/uL (0.00-0.03); Imm Gran Pct Auto 0.5 % (0.0-0.4); Lymphocytes Absolute Auto 1.8 X10*3/uL (1.2-4.9); Lymphocytes Percent Auto 21.5 % (20-40); Mean Corpuscular HGB Conc 32.9 g/dl (31.0-35.0); Mean Corpuscular Hemoglobin 29.5 pg (27.0-33.0); Mean Corpuscular Volume 89.8 fL (80.0-98.0); Mean Platelet Volume 11.2 fL (9.4-12.3); Monocytes Absolute Auto 0.5 X10*3/uL (0.1-1.2); Monocytes Percent Auto 5.9 % (2-11); Neutrophils Absolute Auto 5.9 x10*3/uL (2.0-8.3); Neutrophils Percent Auto 69.9 % (45-73); Platelet Count 195 X10*3/uL (160-400); Red Blood Count 4.71 X10*6/uL (4.20-5.50); Red Cell Distribution Width 13.1 % (11.0-16.0); White Blood Count 8.4 X10*3/uL (4.8-10.8)
[2024-05-26 14:25] LABS: Estimated Average Glucose 91 mg/dL; Hemoglobin A1C 106.0452 umol/L; Hemoglobin A1c % 4.8 % (<6.0); Total Hemoglobin (HGBA1C) 3711.5693 umol/L
[2024-05-26 14:38] LABS: Alanine Aminotransferase 22 U/L (0-31); Albumin Level 4.1 g/dL (3.5-5.0); Alkaline Phosphatase 62 U/L (39-117); Anion Gap 9 (12-20); Aspartate Amino Transferase 21 U/L (5-31); Bilirubin Total 0.5 mg/dL (0.0-1.0); Blood Urea Nitrogen 13 mg/dL (9-16); Calcium 9.5 mg/dL (8.4-10.2); Carbon Dioxide 30 mmol/L (22-29); Chloride 107 mmol/L (96-108); Cholesterol 156 mg/dL (<200); Estimated Glomerular Filt Rate > 60; Glucose Random 74 mg/dL (60-115); HDL Cholesterol 60 mg/dL (>40); LDL Cholesterol Calculated 84 mg/dL (<100); Potassium 3.4 mmol/L (3.3-5.1); Sodium 143 mmol/L (135-145); Total Protein 7.2 g/dL (6.5-8.0); Triglycerides 61 mg/dL (<150)
[2024-05-26 14:43] LABS: HIV AB/AG Nonreactive (Nonreactive); HIV Num 1 0.06 S/CO (0.00-0.99)
[2024-05-26 14:58] LABS: TSH reflex Free T4 6.12 uIU/mL (0.32-4.0)
[2024-05-26 15:41] LABS: Free T4 (Free Thyroxine) 1.02 ng/dL (0.71-1.85)
[2024-05-27 14:04] LABS: RPR Rapid Plasma Reagin NON-REACTIVE (NON-REACTIVE)
[2024-05-27 22:54] LABS: HCV Log PCR <1.18 NOT DETECTED Log IU/mL (NOT DETECTED); HepC Viral Load <15 NOT DETECTED IU/mL (NOT DETECTED)
== END 2024-05-26 10:17 | disposition home or self-care (01) ==
LOC: HO.CHCLDS 10:16
PROVIDERS: Visit Provider Registered Nurse
DX: Z00.00 Encounter for general adult medical examination without abnormal findings (principal)
CPT/HCPCS: 36415; 80053; 80061; 83036; 84439; 84443; 85025; 86592; 87389; 87522

== ENCOUNTER 2024-06-13 09:21 | Outpatient (REF) | payer MEDICAID, SELFPAY ==
--- OUTSIDE RECORDS SUMMARY | 2024-06-13 10:03 | XMS_ITS ---
Author Organization [facility] Address [address] [place] [address] Care Team Providers Care Loom Fixer Name Role Phone PATRIC MUNROE MD Primary [...] unspecified whether esophagitis present (K21.9) Active confirmed [id number] VITAL SIGNS Blood pressure systolic 00 mm Hg 03/20/20 24 Blood pressure diastolic 00 mm Hg 024 Height 66.75 in 03/20/2024 Weight 252 lbs 03/20/2024 BMI 39.76 kg/m2 03/20/2024 Encounters Encounter Location Date Provider Diagnosis [facility] [address] [place] [address] 03/20/2024 Sherwin Lama Jr Colon cancer screening [...] General Examination GENERAL APPEARANCE: in no ac [place] distress HEAD: normocephalic EYES: sclera non-icteric NECK/THYROID: no lymphadenopathy HEART: S1, S2 normal, no mu rmurs CHEST: normal shape and exp ansion LUNGS: clear to auscultatio n bilaterally ABDOMEN: soft, nontender, non distended, bowel sounds present, no organomegaly SKIN: anicteric EXTREMITIES: no clubbing, cyanosi s, or edema PSYCH: cognitive function i ntact ORAL CAVITY: mucosa moist
--- OUTSIDE RECORDS SUMMARY | 2024-06-13 10:03 | XMS_ITS | Encounter Summary ---
Author Organization [employer] Address [address] [facility] 7t [place] [address] Care Team Providers Care Needle Control Cheniller Name Role Phone Divya Frye Primary Care Provider [phone] Reason for Visit * Reason Onset Date Comments Med Refill 03/03/2024 Encounter Details Date Type Department Care Team ([facility] st Contact Info) Description 03/03/2024 Telephone [facility] MEDICINE [address] [place] [address] Divya Frye FNP [address] [place] [address] Med Refill Social History Tobacco Use Types [...] 50 MG tablet To be sent to: [facility] #[id number] documented in this encounter Plan of Treatment Upcoming Encounters Date Type Department Care Team (Late st Contact Info) Description 07/23/2024 3:15 PM EDT Clinical Support [facility] MED & PEDS [address] [place] [address] Arabella Corey, KO [address] [place] [address] documented as of this encounter Visit Diagnoses Not on filedocumented in this encounter Additional Health Concerns Assessment Noted Time PHQ-9 Depression Total Score: 12 024 10:09 AM EST documented as of this encounter Care Teams Needle Control Cheniller Relationship Specialty Start Date End Date Divya Frye FNP [address] [place] [address] PCP - General Family Medicine 12/14/21 documented as of this encounter
--- OUTSIDE RECORDS SUMMARY | 2024-06-13 10:03 | XMS_ITS | Patient Health Record ---
Author Organization [facility] Address [address] [facility] [address] [place] [address] Care Team Providers Care Family Assistant Name Role Phone PATRIC MUNROE MD Primary Care Provider Sherwin Martinez Jr Unavailable [phone] ALLERGIES Allergen (clinical drug ingredient) Drug/Non Drug Allergy documented on EMR Reaction Allergy Type Onset Date Status naproxen Naproxen Unknown Drug Allergy Active gabapentin Gabapentin Unknown Drug Allergy Activ e fluoxetine Fluoxetine Unknown Drug Allergy Activ e amlodipine Amlodipine Besylate Unknown Drug Allergy Active RESULTS Component Value Reference Range Notes Glucose, Whole Blood Reviewed date:04/25/2024 01:43:20 PM Interpretation: Performing Lab:[facility], [address] [place] [id number] Notes/Report: Glucose, Whole Blood 93 60-115 mg/dL METER # : [id number] REASON FOR REFERRAL Referring Provider First Name PATRIC Referring Provider Last Name LUDWIG Referred Organization [facility] Referred Provider Sherwin Lama Jr Referred Address [address] [place] [address],[address],[place], [place],[address], Referred Provider Specialty Gastroentero logy General Notes Rocío Frederick 024 02:55:59 PM EST > requested a [facility] referral from the [facility] for visit with Dr. Lama on [phone] Referral Priority Routine MEDICATIONS Medication SIG (Take, [...] W/U Status Risk SNOMED Code Notes Problem FPC (current) use of non-steroidal anti-inflammatories (NSAID) (Z79.1) Active confirmed 026212106 Problem Family history of colon cancer (Z80.0) Active confirmed 443420857 Problem FPC (current) use of oral hypoglycemic drugs (Z79.84) Active confirmed 810270777051744 Problem Gastroesophageal reflux disease, unspecified whether esophagitis present (K21.9) Active confirmed 390414220 VITAL SIGNS Blood pressure diastolic 00 mm Hg 03/20/2024 Height 66.75 in 03/20/2024 Blood pressure systolic 00 mm Hg 03/20/2024 Weight 252 lbs 03/20/2024 BMI 39.76 kg/m2 03/20/2024 Encounters Encounter Location Date Provider Diagnosis [facility] [place] [address] [place], [place] [id number] 04/25/2024 Sherwin Lama Jr Colon cancer screening Z12.11 and Family history of colon cancer Z80.0 [facility] [address] [place] [address] 03/20/2024 Sherwin Lama Jr Colon cancer screening [...] Start Date Coverage End Date MEDICA[place] [employer] [address] [place] [address] [id number] LENA MALLORY Self - patient is the insured MEDICAL (GENERAL) HISTORY Medical History History ICD Code Gastroesophageal reflux disease Back and neck pain Varicose veins Hypertension Depression Elevated body mass index Colonoscopy 02/01, Endometrial hyperplasia/abnormal uterine bleeding Surgical History Surgery Date(Month/Year) Tubal ligation Cholecystectomy Back surgery IUD placement
--- OUTSIDE RECORDS SUMMARY | 2024-06-13 10:03 | XMS_ITS | Encounter Summary ---
Author Organization [employer] Address [address] [facility] 7t [place] [address] Care Team Providers Care Filler Feeder Name Role Phone Divya Frye Primary Care Provider [phone] Reason for Visit * Reason Onset Date Comments Med Refill 12/25/2023 Encounter Details Date Type Department Care Team ([facility] st Contact Info) Description 12/25/2023 Telephone [facility] MEDICINE [address] [place] [address] Divya Frye FNP [address] [place] [address] Med Refill Social History Tobacco Use Types [...] 50 MG tablet To be sent to: [id number] - [place], [place] - [address] [place] [address] AT [facility] documented in this encounter Plan of Treatment Upcoming Encounters Date Type Department Care Team (Late st Contact Info) Description 07/23/2024 3:15 PM EDT Clinical Support [facility] MED & PEDS [address] [place] [address] Arabella Corey, RN [address] [place] [address] documented as of this encounter Visit Diagnoses Not on filedocumented in this encounter Additional Health Concerns Assessment Noted Time PHQ-9 Depression Total Score: 12 024 10:09 AM EST documented as of this encounter Care Teams Filler Feeder Relationship Specialty Start Date End Date Divya Frye FNP [address] [place] [address] PCP - General Family Medicine 12/14/21 documented as of this encounter
--- OUTSIDE RECORDS SUMMARY | 2024-06-13 10:03 | XMS_ITS ---
Author Organization [facility] Address [address] [place] [address] Care Team Providers Care Licensed Plumber Name Role Phone PATRIC MUNROE MD Primary Care Provider Unavaila Sherwin Livingston Jr Unavailable REASON FOR VISIT family history,colonoscopy Encounters Encounter Location Date Provider Diagnosis [facility] [place] [address] [place] [id number] 04/25/2024 Sherwin Lama Jr Colon cancer screening Z12.11 and Family history of colon cancer Z80.0 ASSESSMENTS Encounter Date Diagnosis Assessment Notes Treatment Notes Treatment Clinical Notes 04/25/2024 Colon cancer screening (ICD-10 - Z12.11) 04/25/2024 Family history of colon cancer (ICD-10 - Z80.0) PLAN OF TREATMENT No Information
--- OUTSIDE RECORDS SUMMARY | 2024-06-13 10:04 | XMS_ITS | Encounter Summary ---
Author Organization [employer] Address [address] 7t [place] [address] Care Team Providers Care Tone Cabinet Assembler Name Role Phone UdayDivya DAVE Primary Care Provider [phone] Encounter Details Date Type Department Care Team (Late st Contact Info) Description 06/09/2024 Orders Only [facility] CHC MED & PEDS [address] [place] [address] Provider, MD Richa Social History Tobacco Use Types Packs/Day Years Used Date Smoking Tobacco: Former Cigarettes Passive Smoke Exposure: Never Smokeless Tobacco: Never Depression Answer Date Recorded Patient Health Questionnaire-9 Score 7 04/21/2024 Patient Health Questionnaire-9 Score 7 04/21/2024 Last PHQ-9: Questionnaire Data Not on file 0 04/21/2024 Housing Stability Answer Date Recorded What is your housing situation today? I have tyalexa diaz 04/21/[address] you [...] Upcoming Encounters Date Type Department Care Team ([facility] st Contact Info) Description 07/23/2024 3:15 PM EDT Clinical Support [facility] MED & PEDS [address] [place] [address] Arabella Corey, RN [address] [place] [address] documented as of this encounter Procedures Procedure Name Priority Date/Time Associated Diagnosis Comments HM COLONOSCOPY Routine 04/25/2024 3:57 PM EST documented in this encounter Results * Hm Colonoscopy (04/25/2024 3:57 PM EST) us Historical Provider HEALTH MAINTENANCE Final Result documented in this encounter Visit Diagnoses Not on filedocumented in this encounter Additional Health Concerns Assessment Noted Time PHQ-9 Depression Total Score: 7 04/21/19 25 9:31 AM EST documented as of this encounter Care Teams Tone Cabinet Assembler Relationship Specialty Start Date End Date Divya Frye FNP [address] [place] [address] PCP - General Family Medicine 12/14/21 documented as of this encounter
--- OUTSIDE RECORDS SUMMARY | 2024-06-13 10:04 | XMS_ITS | Encounter Summary ---
Author Organization [employer] Address [address] [facility] 7t [place] [address] Care Team Providers Care Parliamentary Librarian Name Role Phone Divya Frye Primary Care Provider [phone] Reason for Visit * Reason Onset Date Comments Med Refill 09/21/2023 Encounter Details Date Type Department Care Team ([facility] st Contact Info) Description 09/21/2023 Telephone [facility] MEDICINE [address] [place] [address] Divya Frye FNP [address] [place] [address] Med Refill Social History Tobacco Use Types [...] refill : traMADol (Ultram) 50 MG tablet [id number] - [place], [place] - [address] [place] [address] [facility] documented in this encounter Plan of Treatment Upcoming Encounters Date Type Department Care Team (Late st Contact Info) Description 07/23/2024 3:15 PM EDT Clinical Support [facility] MED & PEDS [address] [place] [address] Arabella Corey, RN [address] [place] [address] documented as of this encounter Visit Diagnoses Not on filedocumented in this encounter Additional Health Concerns Assessment Noted Time PHQ-9 Depression Total Score: 12 024 10:09 AM EST documented as of this encounter Care Teams Parliamentary Librarian Relationship Specialty Start Date End Date Divya Frye FNP [address] [place] [address] PCP - General Family Medicine 12/14/21 documented as of this encounter
--- OUTSIDE RECORDS SUMMARY | 2024-06-13 10:04 | XMS_ITS | Encounter Summary ---
Author Organization [employer] Address [address] [facility] 7t [place] [address] Care Team Providers Care Tube Room Cashier Name Role Phone Divya Frye DAVE Primary Care Provider [phone] Reason for Visit * Reason Onset Date Comments Results 05/28/2024 Encounter Details Date Type Department Care Team ([facility] st Contact Info) Description 05/28/2024 Telephone [facility] MED & PEDS [address] [place] [address] Yane Olivares RN Results Social History Tobacco Use Types Packs/Day Years [...] encounter Miscellaneous Notes * Telephone Encounter - Michelle Taveras RN - 06/03/2024 12:17 PM EST Call returned to patient. Advised her that her TSH was slightly elevated. Advised patient that a repeat lab order was placed for her to repeat either this week or next week. Patient verbalizes understanding and agreement with plan of care at this time. * Telephone Encounter - Arturo Lala - 06/03/2024 11:29 AM EST Tc from pt returning call. Pt has been calling since Sunday. * Telephone Encounter - Yane Olivares RN - 05/28/2024 9:55 AM EST TC placed to pt and LVM to call back the office in regards to result message below ----- Message from Divya Frye sent at 05/28/2024 6:46 AM EST ----- Please call Ms. Owen to discuss her recent thyroid lab results. Her thyroid gland appears to be working harder to produce thyroid hormone, which may indicate slightly [id number] thyroid hormone levels in the body. We'd like her to repeat the thyroid tests in one to two weeks to confirm these results. All other lab results were normal/negative. Thanks! documented in this encounter Plan of Treatment Upcoming Encounters Date Type Department Care Team (Late st Contact Info) Description 07/23/2024 3:15 PM EDT Clinical Support [facility] MED & PEDS [address] [place] [address] Arabella Corey RN [address] [place] [address] documented as of this encounter Visit Diagnoses Not on filedocumented in this encounter Additional Health Concerns Assessment Noted Time PHQ-9 Depression Total Score: 7 04/21/19 25 9:31 AM EST documented as of this encounter Care Teams Tube Room Cashier Relationship Specialty Start Date End Date Divya Frye FNP [address] [place] [address] PCP - General Family Medicine 12/14/21 documented as of this encounter
--- OUTSIDE RECORDS SUMMARY | 2024-06-13 10:04 | XMS_ITS | Encounter Summary ---
Author Organization [employer] Address [address] [place] [address] 7 [place] [address] Care Team Providers Care News Copy Editor Name Role Phone Divya Frye Primary Care Provider [phone] Reason for Visit * Reason Onset Date Comments Med Refill 08/22/2022 Appt w/PCP 08/22/2022 Encounter Details Date Type Department Care Team (Late st Contact Info) Description 08/22/[address] [facility] MEDICINE [address] [place] [address] Divya Frye FNP [address] [place] [address] Med Refill; Appt w/PCP Social History Tobacco [...] EDT TC to pt, reviewed pt's last [facility] appt date and last time she [...] Tramadol 50 Mg Tablet Please sent to [id number] - [place] - [address] [facility] documented in this encounter Plan of Treatment Upcoming Encounters Date Type Department Care Team (Late st Contact Info) Description 07/23/2024 3:15 PM EDT Clinical Support [facility] MED & PEDS [address] [place] [address] Arabella Corey, RN [address] [place] [address] documented as of this encounter Visit Diagnoses Not on filedocumented in this encounter Care Teams News Copy Editor Relationship Specialty Start Date End Date Divya Frye FNP [address] [place] [address] PCP - General Family Medicine 12/14/21 documented as of this encounter
--- OUTSIDE RECORDS SUMMARY | 2024-06-13 10:04 | XMS_ITS | Encounter Summary ---
Author Organization [employer] Address [address] 7t [place] [address] Care Team Providers Care Registered Nurse Hh Case Manager Name Role Phone Divya Frye Primary Care Provider [phone] Reason for Visit * Reason Onset Date Comments Appointment Request 04/13/2023 Encounter Details Date Type Department Care Team ([facility] st Contact Info) Description 04/13/2023 Telephone [facility] MEDICINE [address] [place] [address] Divya Frye FNP [address] [facility] [address] Appointment Request Social History Tobacco Use Types [...] Description 07/23/2024 3:15 PM EDT Clinical Support [facility] MED & PEDS [address] [place] [address] Arabella Corey, RN [address] [place] [address] documented as of this encounter Visit Diagnoses Not on filedocumented in this encounter Additional Health Concerns Assessment Noted Time PHQ-9 Depression Total Score: 13 023 1:20 PM EDT documented as of this encounter Care Teams Registered Nurse Hh Case Manager Relationship Specialty Start Date End Date Divya Frye FNP [address] [place] [address] PCP - General Family Medicine 12/14/21 documented as of this encounter
--- OUTSIDE RECORDS SUMMARY | 2024-06-13 10:04 | XMS_ITS | Encounter Summary ---
Author Organization [employer] Address [address] [facility] 7t [place] [address] Care Team Providers Care Lockstitch Cup Setter Name Role Phone Divya Frye Primary Care Provider [phone] Encounter Details Date Type Department Care Team ([facility] Contact Info) Description 05/26/2024 9:15 AM EST Office Visit [facility] [address] [place] [address] Divya Frye FNP [address] [place] [address] Chronic bilateral low back pain without sciatica [...] y.o. 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 HPI: Last PCP visit: 04/21/24. Followed with GI for colonoscopy and C THROUGH FREIGHT ENGINEER for pelvic exam since last appt. Chronic [...] there is any clinical concern. Referral to [facility] sent 09/01/23 Other Chronic [...] 2021) Mammo: 12/24/23: Mammo BIRADS 1 at [facility] PAP: September 2021, NIL/-HPV. Following with Dr. [...] low salt diet and routine physical activity/movement * Result Encounter Note - DAVE Lopez - 05/26/2024 9:15 AM EST Please call Ms. Owen to discuss her recent thyroid lab results. Her thyroid gland appears to be working harder to produce thyroid hormone, which may indicate slightly iouuu-xnvi-etjvyy thyroid hormone levels in the body. We'd like her to repeat the thyroid tests in one to two weeks to confirm these results. All other lab results were normal/negative. Thanks! documented in this encounter Plan of Treatment Upcoming Encounters Date Type Department Care Team (Late st Contact Info) Description 07/23/2024 3:15 PM EDT Clinical Support [facility] [address] [place] [address] Arabella Corey, RN [address] [place] [address] Scheduled Orders Name Type Priority Associated Diagnoses Orde r Schedule Chlamydia/N. Gonorrhoeae RNA, TMA, Urogenitial Microbiology Routine Healthcare maintenance Expected: 05/26/2024, Expires: 05/26/2025 Albumin, Random Urine W/Creatinine Lab Routine Healthcare maintenance Expected: 05/26/2024 (Approximate), Expires: 05/26/2025 documented as of this encounter Procedures Procedure Name Priority Date/Time Associated Diagnosis Comments TSH W/REFLEX TO FT4 Routine 05/26/2024 1 0:18 AM EST Healthcare maintenance HEPATITIS C VIRAL RNA, QUANTITATIVE, REAL-TIME PCR Routine 05/26/2024 10:18 AM EST Healthcare maintenance CBC WITH AUTO DIFFERENTIAL Routine 05/26/2024 10:18 AM EST Healthcare maintenance RPR (MONITOR) W/REFL TITER Routine 05/26/2024 10:18 AM EST Healthcare maintenance HIV 1/2 ANTIGEN/ANTIBODY, FOURTH GENERATION W/RFL Routine 05/26/2024 10:18 AM EST Healthcare maintenance LIPID PANEL, STANDARD Routine 05/26/2024 10:18 AM EST Healthcare maintenance COMPREHENSIVE METABOLIC PANEL Routine 05/26/2024 10:18 AM EST Healthcare maintenance HEMOGLOBIN A1C Routine 05/26/2024 10:15 AM EST Healthcare maintenance documented in this encounter Results * (ABNORMAL) CBC auto differential (05/26/2024 10:18 AM EST) White Blood Count 8.4 4.8 - 10.8 X10*3/uL [facility] Red Blood Count 4.71 4.20 - 5.50 X10*6/uL [facility] Hemoglobin 13.9 12.0 - 16.0 g/dl [facility] Hematocrit 42.3 37.0 - 47.0 % [facility] Mean Corpuscular Volume 89.8 80.0 - 98.0 fL [facility] Mean Corpuscular Hemoglobin 29.5 27.0 - 33.0 pg [facility] Mean Corpuscular HGB Conc 32.9 31.0 - 35.0 g/dl [facility] Red Cell Distribution Width 13.1 11.0 - 16.0 % [facility] Platelet Count 195 160 - 400 X10*3/uL [facility] Mean Platelet Volume 11.2 9.4 - 12.3 fL [facility] Neutrophils Percent Auto 69.9 45 - 73 % [facility] Imm Gran Pct Auto 0.5(H) 0.0 - 0.4 % [facility] Lymphocytes Percent Auto 21.5 20 - 40 % [facility] Monocytes Percent Auto 5.9 2 - 11 % [facility] Eosinophils Percent Auto 1.5 0 - 4 % [facility] Basophils Percent Auto 0.7 0 - 2 % [facility] NRBC Pct Auto 0.0 0.0 - 0.2 /100WBC [facility] Neutrophils Absolute Auto 5.9 2.0 - 8.3 x10*3/uL [facility] Imm Gran Abs Auto 0.04(H) 0.00 - 0.03 X10*3/uL [facility] Lymphocytes Absolute Auto 1.8 1.2 - 4.9 X10*3/uL [facility] Monocytes Absolute Auto 0.5 0.1 - 1.2 X10*3/uL [facility] Eosinophils Absolute Auto 0.1 0.0 - 0.4 X10*3/uL [facility] Basophils Absolute Auto 0.1 0.0 - 0.2 X10*3/uL [facility] NRBC Abs Auto 0.000 0.0 - 0.012 X10*3/uL [facility] Blood Venous blood specimen / Unknown 05/26/2024 10:18 AM EST 05/26/2024 1:59 PM EST us Divya Frye SUPERINTENDENT MAINTENANCE LAB BLOOD ORDERABLES Final Res ult [facility] [address] [place] [phone] * (ABNORMAL) Comprehensive Metabolic Panel (05/26/2024 10:18 AM EST) Sodium 143 135 - 145 mmol/L [facility] Potassium 3.4 3.3 - 5.1 mmol/L [facility] Chloride 107 96 - 108 mmol/L [facility] Carbon Dioxide 30(H) 22 - 29 mmol/L [facility] Anion Gap 9(L) 12 - 20 [facility] Urea Nitrogen (BUN) 13 9 - 16 mg/dL [facility] Creatinine, Serum 0.87 0.5 - 1.4 mg/dL [facility] Estimated Glomerular Filt Rate >60 [facility] Comment:Chronic Kidney Disea se: Estimated GFR < 60 mL/min/[id number] Kidney Disease: Estimated GFR < 15 mL/min/1.73m2 Glucose 74 60 - 115 mg/dL [facility] Calcium 9.5 8.4 - 10.2 mg/dL [facility] Bilirubin, Total 0.5 0.0 - 1.0 mg/dL [facility] Aspartate Amino Transferase 21 5 - 31 U/L [facility] Alanine Aminotransferase 22 0 - 31 U/L [facility] Total Protein 7.2 6.5 - 8.0 g/dL [facility] Albumin Level 4.1 3.5 - 5.0 g/dL [facility] Alkaline Phosphatase 62 39 - 117 U/L [facility] Blood Venous blood specimen / Unknown 05/26/2024 10:18 AM EST 05/26/2024 1:59 PM EST us Divya Frye SUPERINTENDENT MAINTENANCE LAB BLOOD ORDERABLES Final Res ult Performing Organization Address [facility] Co de Phone Number [facility] [address] [place] [phone] * (ABNORMAL) TSH with Reflex to Free T4 (05/26/2024 10:18 AM EST) TSH reflex Free T4 6.12(H) 0.32 - 4.0 uIU/mL [facility] Blood 05/26/2024 10:1 8 AM EST 05/26/2024 1:59 PM EST us Divya Frye SUPERINTENDENT MAINTENANCE LAB BLOOD ORDERABLES Final Res ult Performing Organization Address City/[facility]/ZIP Co de Phone Number [facility] [address] [place] [phone] * Lipid Panel, Standard (05/26/2024 10:18 AM EST) Triglycerides 61 <150 mg/dL [facility] Comment:Desirable Triglyceri de: less than 150 mg/dLBorderline High Triglyceride 150-199 mg/dLHigh Triglyceride: 200-499 mg/dLVery High Triglyceride: greater than or equal to 5OO mg/dL Cholesterol 156 <200 mg/dL [facility] Comment:Desirable Cholestero l: less than 200 mg/dLBorderline High Cholesterol: 200-239 mg/dLHigh Cholesterol: greater than 239 mg/dL LDL Cholesterol Calculated 84 <100 mg/dL [facility] Comment:Desirable LDL: less than 100 mg/dLNear Optimal/Above Optimal LDL: 110- 129 mg/dLBorderline High LDL: 130-159 mg/dLHigh LDL: 160-189 mg/dLVery High LDL: greater than or equal to 190 mg/dL HDL Cholesterol 60 >40 mg/dL [facility] Comment:Desirable HDL: great er than 40 mg/dL Note: This HDL assay may give artificially low results in patients with liver disease. Blood Venous blood specimen / Unknown 05/26/2024 10:18 AM EST 05/26/2024 1:59 PM EST us Divya Frye SUPERINTENDENT MAINTENANCE LAB BLOOD ORDERABLES Final Res ult [facility] [address] [place] [phone] * HIV-1/2 Antigen and Antibodies, Fourth Generation, with Reflexes (05/26/2024 10:18 AM EST) HIV AB/AG Nonreactive Nonreactive [facility] Comment:HIV-1 p24 Ag and/or HIV-1/HIV-2 Ab not detected.A test result that is nonreactive does not exclude thepossibility of exposure to or infection with HIV-1 and/orHIV-2. Nonreactive results in this assay for individualswith prior exposure to HIV-1 and/or HIV-2 may be due toantigen and antibody levels that are below the limit ofdetection of this assay.The [employer] Alinity HIV Ag/Ab Combo assay result andsupplemental assay results should be interpreted inconjunction with the patient's clinical presentation,history and other laboratory results. If the results areinconsistent with clinical evidence, additional testing issuggested to confirm the result. Blood Venous blood specimen / Unknown 05/26/2024 10:18 AM EST 05/26/2024 1:59 PM EST Divya Frye [facility] LAB BLOOD ORDERABLES Final Res ult Performing Organization Address [facility] Co de Phone Number [facility] [address] [place] [address] [phone] * RPR (Monitor) with Reflex to??Titer (05/26/2024 10:18 AM EST) Pathologist [facility] RPR (Monitor) w/Refl Titer NON-REACTI VE NON-REACT JOSE [facility] Comment:THIS TEST WAS PERFOR MED AT:[employer] [address] [phone] LOPEZ MD Rapid Plasma Reagin Ab Titer TNP [facility] Blood Venous blood specimen / Unknown 05/26/2024 10:18 AM EST 05/26/2024 1:59 PM EST [facility] LAB BLOOD ORDERABLES Final Res ult Performing Organization Address [facility] Co de Phone Number [facility] [address] [place] [address] [phone] * Hepatitis C Viral RNA, Quantitative, Real-Time PCR (05/26/2024 10:18 AM EST) Pathologist [facility] Hepatitis C Viral Load <15 NOT DETECTED NOT DETECTED IU/mL [facility] HCV Log PCR <1.18 NOT DETECTED NOT DETECTED Log IU/mL [facility] Comment:For additional infor keren, please refer [email or web address]/faq/[email or web address](This link is being provided for informational/educational purposes only.)THIS TEST WAS PERFORMED AT:[employer] [place] [phone] LOPEZ MD Blood 05/26/2024 10:1 8 AM EST 05/26/2024 1:59 PM EST Divya Frye SUPERINTENDENT MAINTENANCE LAB BLOOD ORDERABLES Final Res ult Performing Organization Address [facility] Co de Phone Number [facility] [address] [place] [phone] * Hemoglobin A1c (05/26/2024 10:15 AM EST) Hemoglobin A1c 4.8 <6.0 % [facility] Comment:Hemoglobin A1C Refer ence Range Adults: 4.8 - 6.0 % Non diabetic: < 6.0 % Goal: < 7.0 %Additional Action Suggested: > 8.0 %Note: Hemoglobin A1c results are invalid for patients with abnormal amounts of HbF. Blood transfusions may impact the HbA1c concentration in the patient sample. Estimated Average Glucose 91 mg/dL [facility] Comment:eAG = Estimated ave rage glucose which is %A1C expressed asaverage glucose, using the formula of the [id number] Glucose study (ADAG), Diabetes Care, Vol.31,#8,Nov. 2007 Blood Venous blood specimen / Unknown 05/26/2024 10:15 AM EST 05/26/2024 1:59 PM EST Divya Frye SUPERINTENDENT MAINTENANCE LAB BLOOD ORDERABLES Final Res ult Performing Organization Address [facility] Co de Phone Number [facility] [address] [place] [phone] documented in this encounter Visit Diagnoses Diagnosis Chronic bilateral low back pain without sciatica- Primary Encounter for immunization Essential hypertension Unspecified essential hypertension Cervical spondylosis Cervical spondylosis without myelopathy Healthcare maintenance Constipation, unspecified constipation type documented in this encounter Additional Health Concerns Assessment Noted Time PHQ-9 Depression Total Score: 7 04/21/19 25 9:31 AM EST documented as of this encounter Care Teams Lockstitch Cup Setter Relationship Specialty Start Date End Date Divya Frye FNP [address] [place] [address] PCP - General Family Medicine 12/14/21 documented as of this encounter
--- OUTSIDE RECORDS SUMMARY | 2024-06-13 10:04 | XMS_ITS | Encounter Summary ---
Author Organization [employer] Address [address] [facility] 7t [place] [address] Care Team Providers Care Optical Assistant Name Role Phone Divya Frye Primary Care Provider [phone] Encounter Details Date Type Department Care Team ([facility] st Contact Info) Description 05/28/2024 Orders Only [facility]S [address] [place] [address] Divya Frye FNP [address] [place] [address] Elevated TSH (Primary Dx) Social History Tobacco Use Types Packs/Day Years [...] Description 07/23/2024 3:15 PM EDT Clinical Support [facility] [address] [place] [address] Arabella Corey, RN [address] [place] [address] Scheduled Orders Name Type Priority Associated Diagnoses Orde r Schedule TSH W/Reflex to FT4 Lab Routine Elevated TSH Expected: 05/28/2024 (Approximate), Expires: 05/28/2025 documented as of this encounter Visit Diagnoses Diagnosis Elevated TSH- Primary Other abnormal blood chemistry documented in this encounter Additional Health Concerns Assessment Noted Time PHQ-9 Depression Total Score: 7 04/21/19 25 9:31 AM EST documented as of this encounter Care Teams Optical Assistant Relationship Specialty Start Date End Date Divya Frye FNP [address] [place] [address] PCP - General Family Medicine 12/14/21 documented as of this encounter
--- OUTSIDE RECORDS SUMMARY | 2024-06-13 10:04 | XMS_ITS | Encounter Summary ---
Author Organization [employer] Address [address] [facility] 7t [place] [address] Care Team Providers Care Senior Sustainability Consultant Name Role Phone Divya Frye Primary Care Provider [phone] Reason for Visit * Reason Onset Date Comments Med Refill 06/03/2024 Encounter Details Date Type Department Care Team (Late st Contact Info) Description 06/03/2024 Refill [facility] [address] [place] [address] Divya Frye FNP [address] [place] [address] Chronic bilateral low back pain, unspecified whether [...] encounter Miscellaneous Notes * Telephone Encounter - Arturo Spike - 06/03/2024 11:31 AM EST TC from pt requesting medication refill. Medications needing refill : traMADol (Ultram) 50 MG tablet To be sent to: [id number] [place], [place] - [address] [place] [address] AT [facility] documented in this encounter Plan of Treatment Upcoming Encounters Date Type Department Care Team ([facility] st Contact Info) Description 07/23/2024 3:15 PM EDT Clinical Support [facility] MED & PEDS [address] [place] [address] Arabella Corey, KO [address] [place] [address] documented as of this encounter Visit Diagnoses Diagnosis Chronic bilateral low back pain, unspecified whether sciatica present documented in this encounter Additional Health Concerns Assessment Noted Time PHQ-9 Depression Total Score: 7 04/21/19 25 9:31 AM EST documented as of this encounter Care Teams Senior Sustainability Consultant Relationship Specialty Start Date End Date Divya Frye FNP [address] [place] [address] PCP - General Family Medicine 12/14/21 documented as of this encounter
--- OUTSIDE RECORDS SUMMARY | 2024-06-13 10:04 | XMS_ITS | Encounter Summary ---
Author Organization [employer] Address [address] [facility] 7t [place] [address] Care Team Providers Care Presser And Shaper Knitted Goods Name Role Phone Divya Frye DAVE Primary Care Provider [phone] Reason for Visit * Reason Onset Date Comments Chart Prep 05/21/2024 Encounter Details Date Type Department Care Team (Late st Contact Info) Description 05/21/2024 Telephone [facility] MED & PEDS [address] [place] [address] Remberto Ritter [place] Chart Prep Social History [...] Description 07/23/2024 3:15 PM EDT Clinical Support [facility] PEDS [address] [place] [address] Arabella Corey, RN [address] [place] [address] documented as of this encounter Visit Diagnoses Not on filedocumented in this encounter Additional Health Concerns Assessment Noted Time PHQ-9 Depression Total Score: 7 04/21/19 25 9:31 AM EST documented as of this encounter Care Teams Presser And Shaper Knitted Goods Relationship Specialty Start Date End Date Divya Frye FNP [address] [place] [address] PCP - General Family Medicine 12/14/21 documented as of this encounter
--- OUTSIDE RECORDS SUMMARY | 2024-06-13 10:04 | XMS_ITS | Encounter Summary ---
Author Organization [employer] Address [address] [facility] [address] 7[address] [place] [address] Care Team Providers Care Urgent Care Nurse Practitioner Name Role Phone Divya Frye DAVE Primary Care Provider [phone] Encounter Details Date Type Department Care Team [...] Upcoming Encounters Date Type Department Care Team ([facility] st Contact Info) Description 07/23/2024 3:15 PM EDT Clinical Support [facility] [address] [place] [address] Arabella Corey, RN [address] [place] [address] documented as of this encounter Visit Diagnoses Not on filedocumented in this encounter Additional Health Concerns Assessment Noted Time PHQ-9 Depression Total Score: 7 04/21/19 25 9:31 AM EST documented as of this encounter Care Teams Urgent Care Nurse Practitioner Relationship Specialty Start Date End Date Divya Frye FNP [address] [place] [phone] PCP - General Family Medicine 12/14/21 documented as of this encounter
--- OUTSIDE RECORDS SUMMARY | 2024-06-13 10:04 | XMS_ITS | Encounter Summary ---
Author Organization [employer] Address [address] [facility] 7t [place] [address] Care Team Providers Care Health Care Sanitary Technician Name Role Phone Divya Frye Primary Care Provider [phone] Reason for Visit * Reason Onset Date Comments Durable Medical Equipment 05/26/2024 Encounter Details Date Type Department Care Team ([facility] st Contact Info) Description 05/26/2024 Telephone [facility] MED & PEDS [address] [place] [address] Divya Frye FNP [address] [place] [address] Durable Medical Equipment Social History Tobacco Use Types Packs/Day Years [...] encounter Miscellaneous Notes * Telephone Encounter - Debra Ochoa LPN - 05/26/2024 11:11 AM EST RX for 01/14 pillow signed and faxed to Michael . Confirmation received and sent to scan. If patient calls to check status on above, please advise them to contact Michael at [phone]. ----- Message from Divya Frye sent at 05/26/2024 10:01 AM EST ----- DME request for 10-in-1 pillow please. Associated dx: cervical spondylosis, chronic bilateral low back pain w/o sciatica. Thank you! * Telephone Encounter - Debra Ochoa LPN - 05/26/2024 11:11 AM EST ----- Message from Divya Frye sent at 05/26/2024 10:01 AM EST ----- DME request for 10-in-1 pillow please. Associated dx: cervical spondylosis, chronic bilateral low back pain w/o sciatica. Thank you! documented in this encounter Plan of Treatment Upcoming Encounters Date Type Department Care Team (Late st Contact Info) Description 07/23/2024 3:15 PM EDT Clinical Support [facility] [address] [place] [address] Arabella Corey, RN [address] [place] [address] documented as of this encounter Visit Diagnoses Not on filedocumented in this encounter Additional Health Concerns Assessment Noted Time PHQ-9 Depression Total Score: 7 04/21/19 25 9:31 AM EST documented as of this encounter Care Teams Health Care Sanitary Technician Relationship Specialty Start Date End Date Divya Frye FNP [address] [place] [phone] PCP - General Family Medicine 12/14/21 documented as of this encounter
--- OUTSIDE RECORDS SUMMARY | 2024-06-13 10:04 | XMS_ITS | Clinical Summary ---
Author Organization [employer] Address [address] [facility] 7[address] [place] [address] Care Team Providers Care Lpn Per Diem Name Role Phone Divya Frye DAVE Primary Care Provider [phone] Allergies Active Allergy Reactions Criticality Noted Date [...] MORNING 90 capsule 3 02/04/20 24 Active senna-docusate sodium (Senokot-S) 8.6-50 MG tabletIndicatio ns:Constipation , unspecified constipation type Take 1-2 tablets by mouth if needed each day for constipation. 60 tablet 3 05/26/19 25 2025 Active naloxone (Narcan) 4 mg/0.1 mL nasal spray Administer 1 spray (4 mg) into affected nostril(s) if needed for opioid reversal. May repeat every 2-3 minutes if needed, alternating nostrils, until medical assistance becomes available. 2 each 2 06/03/19 25 2025 Active traMADol (Ultram) 50 MG tabletIndicatio ns:Chronic bilateral low back pain, unspecified whether sciatica present Take 1 tablet (50 mg) by mouth if needed each day for severe pain. 15 tablet 06/03/19 25 Active docusate sodium (Colace) 100 MG capsuleIndicati ons:Other constipation TAKE 1 CAPSULE BY MOUTH TWICE A DAY 180 capsule 3 01/14/20 24 2024 Discontinued(T herapy completed) traMADol (Ultram) 50 MG tabletIndicatio ns:Chronic bilateral low back pain, unspecified whether sciatica present Take 1 tablet (50 mg) by mouth if needed each day for severe pain. 15 tablet 04/30/19 25 2024 Discontinued(R eorder (will not trigger notification to Pharmacy)) Active Problems Problem Noted Date Diagnosed Date Long-term current use of opiate analgesic 2023 Overview (12/25/2023): Medication: Tramadol 50mg daily PRN (sparing use, 15 tablets/month) Indication: cervical spondylosis, chronic low back pain w/o sciatica (see hx above) Last [facility]HER Agreement: 12/05/23 Tier III (D9mkyey visits) Cervical spondylosis 09/01/2023 Overview (09/01/2023): MRI [...] there is any clinical concern. Referral to [facility] sent 09/01/23 Numbness and tingling in left hand 08/21/2023 Assessment & Plan (08/21/2023 9:26 AM EDT): Reviewed EMG report with pt: 08/16/23 borderline study MRI cervical spine pending Healthcare maintenance 12/05/2022 Overview (05/26/2024): Contraception: tubal ligation (also w/ Mirena placed October 2021) Mammo: 12/24/23: Mammo BIRADS 1 at [facility] PAP: September 2021, NIL/-HPV. Following with Dr. Benitez. C-scope: Apr 2024. Repeat 5 years d/t fam hx Smoking status: non-smoker Assessment & Plan (12/05/2022 7:12 PM EDT): STI: declines asymptomatic testing Contraception: tubal ligation (also w/ Mirena placed October 2021) Mammo: Last in record 10/2020: BIRADS-1. Reports upcoming appt scheduled. PAP: 02/2017, NIL/-HPV. Following with Dr. Benitez - EMB. C-scope: Last in 2018, advised 5 yr f/u due to small polyp. Smoking status: non-smoker Lipids: repeat ordered Vaccines: bivalent COVID and tetanus booster administered today Abnormal uterine bleeding 12/05/2022 Overview (05/27/2023): ?? Followed by [facility] - Dr. Benitez ?? Mirena IUD placed 11/09/21 ?? Jan 2022: EMB negative for endometrial hyperplasia and/or malignancy. Repeat w/o malignancy. Assessment & Plan (12/05/2022 6:55 PM EDT): Provider to reach out to [facility] regarding results if available at this time [...] Encounters Date Type Department Care Team Description 06/09/2024 Orders Only [facility] [address] [place] [address] ProviderRicha MD 06/03/2024 Refill [facility] MED[facility] [address] [place] [address] Divya Frye FNP Chronic bilateral low back pain, unspecified whether sciatica present 05/28/2024 Telephone [facility] [address] [place] [address] Yane Olivares, KO Results 05/28/2024 Orders Only [facility] [address] [place] [address] Phalen, Divya, INTERNATIONAL MANAGER Elevated TSH (Primary Dx) 05/26/2024 9:15 AM EST Office Visit [facility] [address] [place] [address] Phalen, Divya, INTERNATIONAL MANAGER Chronic bilateral low back pain without sciatica (Primary Dx); Encounter for immunization; Essential hypertension; Cervical spondylosis; Healthcare maintenance; Constipation, unspecified constipation type 05/26/2024 Telephone [facility] [address] [place] [address] Phalemely Divya, INTERNATIONAL MANAGER Durable Medical Equipment 05/26/2024 Travel 05/21/2024 Telephone [facility] [address] [place] [address] Remberto Ritter MA Chart Prep 04/30/2024 Refill [facility] [address] [place] [address] Phalen, Divya, INTERNATIONAL MANAGER Chronic bilateral low back pain, unspecified whether sciatica present 04/21/2024 9:00 AM EST Office Visit [facility] [address] [place] [address] Phalen, Divya, INTERNATIONAL MANAGER Papular lichenification (Primary Dx); Wears glasses; Essential hypertension; Healthcare maintenance 04/21/2024 Travel 04/17/2024 Telephone [facility] [address] [place] [address] Remberto Ritter MA Chart Prep 03/26/2024 3:15 PM EST Clinical Support [facility] [address] [place] [address] Arabella Corey RN Chronic bilateral low back pain without sciatica 03/26/2024 Refill [facility] [address] [place] [address] Arabella Corey, manager non profit bilateral low back pain, unspecified whether sciatica present 03/26/2024 Travel from Last 3 Months Immunizations Name Administration [...] Description 07/23/2024 3:15 PM EDT Clinical Support [facility] [address] [place] [address] Arabella Corey, KO [address] [place] [address] Health Maintenance Due Date Last Done Comments CT Colonography 1975 FIT DNA/Cologuard 1975 FIT 1975 FOBT 1975 Sigmoidoscopy 1975 Alcohol/Substance Use Screening 1985 Family Planning (PISQ) 1988 Pap Smear 1994 Hepatitis B Vaccines (2 of 2 - CpG 2-dose series) 01/18/2024 12/21/2023 Mammogram 12/23/2024 12/24/2023, 10/2022, 10/15/2020, Additional history exists Depression Screening 04/21/2025 04/21/2024, 04/21/19 25 SDOH Screening 04/21/2025 04/21/2024 Tobacco Screening 04/21/2025 04/21/2024 Cervical Cancer Screening 09/21/2026 HPV/Cotest 09/21/2026 09/21/2021, 0 11/2021, 02/14/2017 Colonoscopy 04/25/2029 04/25/2024, 01/15/2019 Colorectal Cancer Screening 04/25/2029 Lipid Panel 05/26/2029 05/26/2024, 12/16, 02/17/2021 DTaP/Tdap/Td Vaccines (5 - Td or Tdap) 12/05/2032 12/05/2022, 10/04/2011, 03/16/2006, Additional history exists RSV Patients and Patients Aged 60 years or older (1 - 1-dose 75+ series) 2048 COVID-19 Vaccine Completed 12/21/2023, , 12/05/2022, Additional history exists Influenza Vaccine Completed 12/21/2023, , 01/15/2022, Additional history exists Zoster Vaccines Completed 02/22/2024, 12/21/2023 HIV Screening Completed 05/26/2024, 0 11/2021, 09/21/2021 Hepatitis C Screening Discontinued 05/26/2024 , 09/21/2021, 09/21/2021 Pneumococcal Vaccine: 50+ Years Completed 05/26/2024, 08/13/2008 [...] Procedure Name Priority Date/Time Associated Diagnosis Comments T4, FREE Routine 05/26/2024 10:18 AM EST CBC WITH AUTO DIFFERENTIAL Routine 05/26/2024 10:18 AM EST Healthcare maintenance COMPREHENSIVE METABOLIC PANEL Routine 05/26/2024 10:18 AM EST Healthcare maintenance TSH W/REFLEX TO FT4 Routine 05/26/2024 1 0:18 AM EST Healthcare maintenance LIPID PANEL, STANDARD Routine 05/26/2024 10:18 AM EST Healthcare maintenance HIV 1/2 ANTIGEN/ANTIBODY, FOURTH GENERATION W/RFL Routine 05/26/2024 10:18 AM EST Healthcare maintenance RPR (MONITOR) W/REFL TITER Routine 05/26/2024 10:18 AM EST Healthcare maintenance HEPATITIS C VIRAL RNA, QUANTITATIVE, REAL-TIME PCR Routine 05/26/2024 10:18 AM EST Healthcare maintenance HEMOGLOBIN A1C Routine 05/26/2024 10:15 AM EST Healthcare maintenance HM COLONOSCOPY Routine 04/25/2024 3:57 PM EST GLUCOSE, WHOLE BLOOD Routine 04/25/2024 8:26 AM EST POCT SAMY-14 URINE DRUG SCREEN Routine 03/26/2024 3:18 PM EST Chronic bilateral low back pain without sciatica BI MAMMOGRAM SCREENING TOMOSYNTHESIS BILATERAL Routine 12/24/2023 3:15 PM EDT ZZZ HISTORICAL HPV E6/E7 RFLX ALFRED 16 18/45 Routine 09/21/2021 2:22 PM EDT from Last 3 Months or Most Recently Relevant to Health Maintenance Results * (ABNORMAL) TSH with Reflex to Free T4 (05/26/2024 10:18 AM EST) TSH reflex Free T4 6.12(H) 0.32 - 4.0 uIU/mL [facility] Blood 05/26/2024 10:1 8 AM EST 05/26/2024 1:59 PM EST Divya Frye [facility] LAB BLOOD ORDERABLES Final Res ult Performing Organization Address [facility] Co de Phone Number [facility] [address] [place] [phone] * Hepatitis C Viral RNA, Quantitative, Real-Time PCR (05/26/2024 10:18 AM EST) Hepatitis C Viral Load <15 NOT DETECTED NOT DETECTED IU/mL [facility] HCV Log PCR <1.18 NOT DETECTED NOT DETECTED Log IU/mL [facility] Comment:For additional infor keren, please refer tohttp://education.KnowledgeMill/faq/SDX27e5(This link is being provided for informational/educational purposes only.)THIS TEST WAS PERFORMED AT:[employer] [employer] [place] [phone] LOPEZ MD Blood 05/26/2024 10:1 8 AM EST 05/26/2024 1:59 PM EST Diyva Frye [facility] LAB BLOOD ORDERABLES Final Res ult Performing Organization Address [facility]/ZIP Co de Phone Number [facility] [address] [place] [phone] * (ABNORMAL) CBC auto differential (05/26/2024 10:18 AM EST) White Blood Count 8.4 4.8 - 10.8 X10*3/uL [facility] Red Blood Count 4.71 4.20 - 5.50 X10*6/uL [facility] Hemoglobin 13.9 12.0 - 16.0 g/dl [facility] Hematocrit 42.3 37.0 - 47.0 % [facility] Mean Corpuscular Volume 89.8 80.0 - 98.0 fL [facility] Mean Corpuscular Hemoglobin 29.5 27.0 - 33.0 pg [facility] Mean Corpuscular HGB Conc 32.9 31.0 - 35.0 g/dl [facility] Red Cell Distribution Width 13.1 11.0 - 16.0 % [facility] Platelet Count 195 160 - 400 X10*3/uL [facility] Mean Platelet Volume 11.2 9.4 - 12.3 fL [facility] Neutrophils Percent Auto 69.9 45 - 73 % [facility] Imm Gran Pct Auto 0.5(H) 0.0 - 0.4 % [facility] Lymphocytes Percent Auto 21.5 20 - 40 % [facility] Monocytes Percent Auto 5.9 2 - 11 % [facility] Eosinophils Percent Auto 1.5 0 - 4 % [facility] Basophils Percent Auto 0.7 0 - 2 % [facility] NRBC Pct Auto 0.0 0.0 - 0.2 /100WBC [facility] Neutrophils Absolute Auto 5.9 2.0 - 8.3 x10*3/uL [facility] Imm Gran Abs Auto 0.04(H) 0.00 - 0.03 X10*3/uL [facility] Lymphocytes Absolute Auto 1.8 1.2 - 4.9 X10*3/uL [facility] Monocytes Absolute Auto 0.5 0.1 - 1.2 X10*3/uL [facility] Eosinophils Absolute Auto 0.1 0.0 - 0.4 X10*3/uL [facility] Basophils Absolute Auto 0.1 0.0 - 0.2 X10*3/uL [facility] NRBC Abs Auto 0.000 0.0 - 0.012 X10*3/uL [facility] Blood Venous blood specimen / Unknown 05/26/2024 10:18 AM EST 05/26/2024 1:59 PM EST Divya Frye [facility] LAB BLOOD ORDERABLES Final Res ult Performing Organization Address City/[facility]/ZIP Co de Phone Number [facility] [address] [place] [phone] * RPR (Monitor) with Reflex to??Titer (05/26/2024 10:18 AM EST) RPR (Monitor) w/Refl Titer NON-REACTI VE NON-REACT JOSE [facility] Comment:THIS TEST WAS PERFOR MED AT:[employer] [employer] [place] [id number] LOPEZ MD Rapid Plasma Reagin Ab Titer TNP [facility] Blood Venous blood specimen / Unknown 05/26/2024 10:18 AM EST 05/26/2024 1:59 PM EST Divya Frye [facility] LAB BLOOD ORDERABLES Final Res ult Performing Organization Address [facility] Co de Phone Number [facility] [address] [place] [phone] * HIV-1/2 Antigen and Antibodies, Fourth Generation, with Reflexes (05/26/2024 10:18 AM EST) HIV AB/AG Nonreactive Nonreactive [facility] Comment:HIV-1 p24 Ag and/or HIV-1/HIV-2 Ab not detected.A test result that is nonreactive does not exclude thepossibility of exposure to or infection with HIV-1 and/orHIV-2. Nonreactive results in this assay for individualswith prior exposure to HIV-1 and/or HIV-2 may be due toantigen and antibody levels that are below the limit ofdetection of this assay.The open[employer] HIV Ag/Ab Combo assay result andsupplemental assay results should be interpreted inconjunction with the patient's clinical presentation,history and other laboratory results. If the results areinconsistent with clinical evidence, additional testing issuggested to confirm the result. Blood Venous blood specimen / Unknown 05/26/2024 10:18 AM EST 05/26/2024 1:59 PM EST Divya Frye [facility] LAB BLOOD ORDERABLES Final Res ult Performing Organization Address [facility] Co de Phone Number [facility] [address] [place] [phone] * T4, Free (05/26/2024 10:18 AM EST) Free T4 (Free Thyroxine) 1.02 0.71 - 1.85 ng/dL [facility] 05/26/2024 10:1 8 AM EST 05/26/2024 1:59 PM EST Divya Frye [facility] LAB BLOOD ORDERABLES Final Res ult Performing Organization Address [facility] Co wv Phone Number [facility] [address] [place] [phone] * Lipid Panel, Standard (05/26/2024 10:18 AM EST) Triglycerides 61 <150 mg/dL [facility] Comment:Desirable Triglyceri de: less than 150 mg/dLBorderline High Triglyceride 150-199 mg/dLHigh Triglyceride: 200-499 mg/dLVery High Triglyceride: greater than or equal to 5OO mg/dL Cholesterol 156 <200 mg/dL [facility] Comment:Desirable Cholestero l: less than 200 mg/dLBorderline High Cholesterol: 200-239 mg/dLHigh Cholesterol: greater than 239 mg/dL LDL Cholesterol Calculated 84 <100 mg/dL [facility] Comment:Desirable LDL: less than 100 mg/dLNear Optimal/Above Optimal LDL: 110- 129 mg/dLBorderline High LDL: 130-159 mg/dLHigh LDL: 160-189 mg/dLVery High LDL: greater than or equal to 190 mg/dL HDL Cholesterol 60 >40 mg/dL [facility] Comment:Desirable HDL: great er than 40 mg/dL Note: This HDL assay may give artificially low results in patients with liver disease. Blood Venous blood specimen / Unknown 05/26/2024 10:18 AM EST 05/26/2024 1:59 PM EST us Divya Lisbethemely INTERNATIONAL MANAGER LAB BLOOD ORDERABLES Final Res ult [facility] [address] [place] [phone] * (ABNORMAL) Comprehensive Metabolic Panel (05/26/2024 10:18 AM EST) Sodium 143 135 - 145 mmol/L [facility] Potassium 3.4 3.3 - 5.1 mmol/L [facility] Chloride 107 96 - 108 mmol/L [facility] Carbon Dioxide 30(H) 22 - 29 mmol/L [facility] Anion Gap 9(L) 12 - 20 [facility] Urea Nitrogen (BUN) 13 9 - 16 mg/dL [facility] Creatinine, Serum 0.87 0.5 - 1.4 mg/dL [facility] Estimated Glomerular Filt Rate >60 [facility] Comment:Chronic Kidney Disea se: Estimated GFR < 60 mL/min/1.65m3Metgfv Kidney Disease: Estimated GFR < 15 mL/min/1.73m2 Glucose 74 60 - 115 mg/dL [facility] Calcium 9.5 8.4 - 10.2 mg/dL [facility] Bilirubin, Total 0.5 0.0 - 1.0 mg/dL [facility] Aspartate Amino Transferase 21 5 - 31 U/L [facility] Alanine Aminotransferase 22 0 - 31 U/L [facility] Total Protein 7.2 6.5 - 8.0 g/dL [facility] Albumin Level 4.1 3.5 - 5.0 g/dL [facility] Alkaline Phosphatase 62 39 - 117 U/L [facility] Blood Venous blood specimen / Unknown 05/26/2024 10:18 AM EST 05/26/2024 1:59 PM EST Divya Frye INTERNATIONAL MANAGER LAB BLOOD ORDERABLES Final Res ult Performing Organization Address City/[facility] Co de Phone Number [facility] [address] [place] [phone] * Hemoglobin A1c (05/26/2024 10:15 AM EST) Hemoglobin A1c 4.8 <6.0 % [facility] Comment:Hemoglobin A1C Refer ence Range Adults: 4.8 - 6.0 % Non diabetic: < 6.0 % Goal: < 7.0 %Additional Action Suggested: > 8.0 %Note: Hemoglobin A1c results are invalid for patients with abnormal amounts of HbF. Blood transfusions may impact the HbA1c concentration in the patient sample. Estimated Average Glucose 91 mg/dL [facility] Comment:eAG = Estimated ave rage glucose which is %A1C expressed asaverage glucose, using the formula of the J7U-DedvjkoUykfloi Glucose study (ADAG), Diabetes Care, Vol.31,#8,Nov. 2007 Blood Venous blood specimen / Unknown 05/26/2024 10:15 AM EST 05/26/2024 1:59 PM EST Divya Frye INTERNATIONAL MANAGER LAB BLOOD ORDERABLES Final Res ult Performing Organization Address [facility]/ZIP Co de Phone Number [facility] [address] [place] [phone] * Hm Colonoscopy (04/25/2024 3:57 PM EST) Historical Provider HEALTH MAINTENANCE Final Result * Glucose, Whole Blood (04/25/2024 8:26 AM EST) Glucose, Whole Blood 93 60 - 115 mg/dL [facility] Comment:METER #: [id number] 04/25/2024 8:26 AM EST 04/25/2024 8:30 AM EST us Generic External Data Provider LAB BLOOD ORDERAB LES Final Result [facility] [address] [facility] [place] [address] [phone] * POCT SAMY-14 Urine Drug Screen (03/26/2024 3:18 PM EST) [facility] TCA, Urine Positive Urine Urine specimen obtained by clean catch procedure / Unknown 03/26/2024 3:18 PM EST Narrative Arabella Corey RN - 03/26/2024 3:18 PM EST Lot# [id number] Exp: 03-22-25 Divya Frye INTERNATIONAL MANAGER POINT OF CARE TEST ENTER/EDIT ORDERABLES Final Result * BI Mammogram Screening Tomosynthesis Bilateral (12/24/2023 3:15 PM EDT) Anatomical Region Laterality Modality Breast Bilateral Mammography 12/24/2023 3:15 PM EDT Narrative 01/08/2024 9:24 AM EDT ? [facility] ? [address] ?[place] [address] ? Mammography Report ? Signed ? Patient: Lexie,Stephanie ?MR#: [id number] ?? [id number] ? : 1975 ?Acct:[id number] ? Age/Sex: 48 / F ?ADM Date: 09/09/24 ? Loc: HO.MAMMO ? Attending Arnulfo Frye INTERNATIONAL MANAGER ? Ordering Physician: Phalen,Divya INTERNATIONAL MANAGER ?Results: 1Negat ?? jose ? Date of Service: 12/24/23 ?Follow Up: 1 Year From Orig ?? inal Mammogram ? Procedure(s): MM tomosynthesis screening BI ?? Accession Number(s): [id number] ? cc: Divya Frye INTERNATIONAL MANAGER ? EXAMINATION: ?? MM SCREENING DIGITAL BREAST [...] ??Carmen Cobb DO ??01/08/2024 09:21 AM EDT ?? RP ? Dictated By: ?Carmen Cobb DO ? Signed By: ?<Electronically signed by Carmen Cobb, DO in OV> ? 01/08/24 09 ? DD/ 1515 ? TD/TT: 12/24/23 1536 ? Qualitative Field Coordinator: ? Procedure Note Donotuseinterpreter, Image - 01/08/2024 [facility] [address] [place], [place] [address] Mammography Report Signed Patient: Stephanie OwenMR#: [id number] : 1975Acct:[id number] Age/Sex: 48 / FADM Date: 12/24/23 Loc: HO.MAMMO Attending Dr: Divya Frye INTERNATIONAL MANAGER Ordering Physician: Divya FryePResults: 1Negat jose Date of Service: 12/24/23Follow Up: 1 Year From Orig inal Mammogram Procedure(s): MM tomosynthesis screening BI Accession Number(s): [id number] cc: Divya Frye INTERNATIONAL MANAGER EXAMINATION: MM SCREENING DIGITAL BREAST TOMOSYNTHESIS, BILATERAL [...] Carmen Cobb DO 01/08/2024 09:21 AM EDT Dictated By: Carmen Cobb DO Signed By: <Electronically signed by Carmen Cobb DO in OV> 01/08/24 0921 DD/ 1515 TD/TT: 12/24/23 1536 Qualitative Field Coordinator: us Divya Frye INTERNATIONAL MANAGER IMG BI PROCEDURES Edited Resul t - Final * HPV E6/E7 RFLX ALFRED 16 18/45 (09/21/2021 2:22 PM EDT) HPV mRNA E6/E7 rflx Not Detected Not Detected [facility] Comment: Methodology: Screen Printing Inspector-Mediated Amplification This assay detects E6/E7 viral messenger RNA (mRNA) from 14 high-risk HPV types (16,18,31,33,35,39,45,51,52,56,58,59,66,68). Cervical sources are required for HPV testing. If a vaginal source from a patient who has had a total hysterectomy with removal of cervix was submitted, please contact the testing laboratory for alternative testing options. For additional information, please refer to http://education.KnowledgeMill/faq/BTJ459q6 (This link if provided for information/ educational purposes only.) THIS TEST WAS PERFORMED AT: [employer] [address] [place] [address],[address] [place], [place] ??[phone] IQRA LOPEZ MD 09/21/2021 2:22 PM EDT Gaudencio Benitez MD HISTORICAL/NON ORDERABLE LABS Fi nal Result Performing Organization Address City/State/[facility] Co de Phone Number [facility] [address] from Last 3 Months or Most Recently Relevant to Health Maintenance Insurance [facility] C3 Care Teams Lpn Per Diem Relationship Specialty Start Date End Date Divya Frye FNP [address] [place] [phone] PCP - General Family Medicine 12/14/21"
[2024-06-13 15:30] LABS: Creatinine Urine 58.96 mg/dL; Microalbumin Urine < 5.0 mg/L
[2024-06-13 15:43] LABS: TSH reflex Free T4 7.78 uIU/mL (0.32-4.0)
[2024-06-13 16:27] LABS: CT PCR NOT DETECTED (Not Detect.); NG PCR NOT DETECTED (Not Detect.)
== END 2024-06-13 09:22 | disposition home or self-care (01) ==
LOC: HO.CHCLDS 09:21
PROVIDERS: Visit Provider Registered Nurse
DX: Z00.00 Encounter for general adult medical examination without abnormal findings (principal); R79.89 Other specified abnormal findings of blood chemistry
CPT/HCPCS: 36415; 82043; 82570; 84439; 84443; 87491; 87591

== ENCOUNTER 2024-08-12 11:18 | Outpatient (REF) | payer MEDICAID, SELFPAY ==
[2024-08-12 15:16] LABS: TSH reflex Free T4 4.27 uIU/mL (0.32-4.0)
[2024-08-12 15:46] LABS: Free T4 (Free Thyroxine) 1.03 ng/dL (0.71-1.85)
== END 2024-08-12 11:19 | disposition home or self-care (01) ==
LOC: HO.CHCLDS 11:18
PROVIDERS: Visit Provider Registered Nurse
DX: E03.8 Other specified hypothyroidism (principal)
CPT/HCPCS: 36415; 84439; 84443

== ENCOUNTER 2024-08-18 10:47 | Outpatient (REF) | payer MEDICAID, SELFPAY ==
--- OUTSIDE RECORDS SUMMARY | 2024-08-18 12:16 | XMS_ITS | Encounter Summary ---
Author Organization [employer] Address [address] [facility] [address]t [place] [address] Care Team Providers Care Coat Maker Name Role Phone Divya Frye Primary Care Provider [phone] Reason for Visit * Reason Onset Date Comments Med Refill 03/03/2024 Encounter Details Date Type Department Care Team ([facility] st Contact Info) Description 03/03/2024 Telephone [facility] [address] [place] [address] Divya Frye FNP [address] [place] [address] Med Refill Social History Tobacco Use Types [...] 50 MG tablet To be sent to: [facility] #[id number] documented in this encounter Plan of Treatment Upcoming Encounters Date Type Department Care Team (Late st Contact Info) Description 11/04/2024 3:15 PM EDT Office Visit [facility] [address] [place] [address] Gabbie Santizo, OD [address] [place] [address] 11/12/2024 3:15 PM EDT Clinical Support [facility] [address] [place] [address] Arabella Corey, KO [address] [place] [address] 11/24/2024 9:00 AM EDT Office Visit [facility] [address] [place] [address] Divya Frye FNP [address] [place] [address] documented as of this encounter Visit Diagnoses Not on filedocumented in this encounter Additional Health Concerns Assessment Noted Time PHQ-9 Depression Total Score: 12 024 10:09 AM EST documented as of this encounter Care Teams Coat Maker Relationship Specialty Start Date End Date Divya Frye FNP [address] [place] [address] PCP - General Family Medicine 12/14/21 documented as of this encounter
--- OUTSIDE RECORDS SUMMARY | 2024-08-18 12:17 | XMS_ITS ---
Author Organization [facility] Address [address] [place] [address] Care Team Providers Care Cement Kiln Operator Name Role Phone PATRIC MUNROE MD Primary Care Provider Sherwin Martinez Jr Unavailable Allergies Allergen (clinical drug ingredient) Drug/Non Drug Allergy documented on EMR Reaction Allergy Type Onset Date Status naproxen Naproxen Unknown Drug Allergy Active gabapentin Gabapentin Unknown Drug Allergy Activ e fluoxetine Fluoxetine Unknown Drug Allergy Activ e amlodipine Amlodipine Besylate Unknown Drug Allergy Active REASON FOR VISIT Patient presents today for a consultation Medications Medication SIG (Take, Route, Frequency, Duration) Notes [...] Active Eucerin - as directed Externally Active Social History Alcohol Screen Question Answer Notes Did you [...] Never (0 point) Points 1 Interpretation Negative Problems Problem Type SNOMED Code ICD Code Onset Dates Problem Status W/U Status Risk Notes Problem [id number] Gastroesophageal reflux disease, unspecified whether esophagitis present (K21.9) Active confirmed Vital Signs Blood pressure systolic 00 mm Hg 03/20/20 24 Blood pressure diastolic 00 mm Hg 024 Height 66.75 in 03/20/2024 Weight 252 lbs 03/20/2024 BMI 39.76 kg/m2 03/20/2024 Encounters Encounter Location Date Provider Diagnosis [facility] [address] [place] [address] 03/20/2024 Sherwin Lama Jr Colon cancer screening Z12.11 ; Gastroesophageal reflux disease, unspecified whether esophagitis present K21.9 and Family history of colon cancer Z80.0 Assessments Encounter Date Diagnosis (ICD Code) Assessment Notes Treatment Notes Treatment Clinical Notes Section Notes 03/20/2024 Colon cancer screening (ICD-10 - Z12.11) Colonoscopy material was printed At this time, she is doing well. Her reflux symptoms are under good control. We discussed diet, lifestyle modifications, and weight management regarding the treatment of reflux. She will continue her present regimen. She is due for colorectal cancer screening. This will be arranged. She understands risks and benefits and agrees to proceed. She is advised to stop metformin and hydrochlorothiazide the day before the procedure and NSAIDs one week before the procedure. 03/20/2024 Gastroesophageal reflux disease, unspecified whether esophagitis present (ICD-10 - K21.9) At this time, she is doing well. Her reflux symptoms are under good control. We discussed diet, lifestyle modifications, and weight management regarding the treatment of reflux. She will continue her present regimen. She is due for colorectal cancer screening. This will be arranged. She understands risks and benefits and agrees to proceed. She is advised to stop metformin and hydrochlorothiazide the day before the procedure and NSAIDs one week before the procedure. 03/20/2024 Family history of colon cancer (ICD-10 - Z80.0) At this time, she is doing well. Her reflux symptoms are under good control. We discussed diet, lifestyle modifications, and weight management regarding the treatment of reflux. She will continue her present regimen. She is due for colorectal cancer screening. This will be arranged. She understands risks and benefits and agrees to proceed. She is advised to stop metformin and hydrochlorothiazide the day before the procedure and NSAIDs one week before the procedure. Plan Of Treatment Treatment Notes Assessment Notes Colon cancer screening Colonoscopy mater ial was printed Future Test Test Name Order Date COLONOSCOPY 03/20/2024 Next Appt Details Follow Up: 1 Year, Reason: Progress Notes * LENA BENITEZDOB:1975 (48 yo F)Acc No.[id number]:03/20/2024 Progress Notes Patient:?LENA BENITEZ Provider:?Sherwin Lama MD :1975???Age:48 Y???Sex:Female D ate:03/20/2024 Address:[address] [place], [place] [id number] Pcp:PATRIC MUNROE MD Subjective: * Chief Complaints: * ???1. Patient presents today for a consultation. * HPI: ???New symptom(s):? The patient is a pleasant 48-year-old woman seen today in consultation. She has a history of gastroesophageal reflux disease with substernal burning precipitated by typical foods including spicy foods and fatty foods. She has no dysphagia, hematemesis, or melena. Symptoms have been well-controlled on ranitidine. ?She has a family history of colon cancer and last underwent colonoscopy in 2019 with removal of a hyperplastic polyp. She is due for followup. She has no complaints of rectal bleeding or change in her bowel habits. * ROS:?General/Constitutional:?Change in appetite?denies.?Fatigue?denies.?ENT:?Patient denies?difficulty swallowing.?Respiratory:?Patient denies?shortness of breath.?Cardiovascular:?Patient denies?chest pain.?Gastrointestinal:?Comments?See HPI for details.?Genitourinary:?Difficulty urinating?denies.?Incontinence?denies.?Musculoskeletal:?Patient denies?muscle aches.?Skin:?Patient denies?pruritis.?Neurologic:?Patient denies?low back pain.?Psychiatric:?Patient denies?mental or physical abuse.? * Medical History:?Gastroesoph ageal reflux disease, Back and neck pain, Varicose veins, Hypertension, Depression, Elevated body mass index, Colonoscopy 02/01,, Endometrial hyperplasia/abnormal uterine bleeding. * Surgical History:?Tubal liga tion , Cholecystectomy , Back surgery , IUD placement . * Family History:?Father: dece ased, dx in his late 70's, diagnosed with Colon polyps, Colon cancer.?Mother: , diagnosed with HTN (hypertension).?Siblings: , oldest brother had colon cancer at age 50., diagnosed with Colon cancer, Colon polyps.? Father had colon cancer\nBrother had colon cancer. * Social History:?Tobacco Use:?Tobacco Use/Smoking?Are you a: former smoker , How long has it been since you last smoked?: > 10 years.?Drugs/Alcohol:?Alcohol Screen?Did you have a drink containing alcohol in the past year??Yes,?How often did you have a drink containing alcohol in the past year??Monthly or less (1 point), How many drinks did you have on a typical day when you were drinking in the past year??1 or 2 drinks (0 point),?How often did you have 6 or more drinks on one occasion in the past year??Never (0 point),?Points?1,?Interpretation?Negative.?Miscellaneous:?Marital status: single. Occupation: unemployed. * Medications:?Taking Colace 1 00 MG Capsule 1 capsule as needed Orally twice a day, Taking Fluticasone Propionate 50 MCG/ACT Suspension 1 spray in each nostril Nasally Once a day, Taking Wellbutrin SR 200 MG Tablet Extended Release 12 Hour 1 tablet in the morning Orally twice a day, Taking Metoprolol Tartrate 50 MG Tablet 1 tablet with food Orally once daily, Taking hydroCHLOROthiazide 25 MG Tablet 1 tablet in the morning Orally Once a day, Taking Loratadine 10 MG Tablet 1 tablet Orally Once a day/prn, Taking traMADol HCl 50 MG Tablet 1 tablet Orally every 8 hours as needed, Taking Lisinopril 20 MG Tablet 1 tablet Orally Once a day, Taking Eucerin - Cream as directed Externally , Taking metFORMIN HCl 500 MG Tablet 1 tablet with a meal Orally Once a day, Taking MiraLax - Packet 1 packet mixed with 8 ounces of fluid Orally Once a day, Taking Simethicone 80 MG Tablet Chewable 1 tablet after meals and at bedtime as needed Orally Four times a day, Taking Ranitidine HCl 150 MG Capsule 1 capsule at bedtime Orally Once a day, Taking Ibuprofen 800 MG Tablet 1 tablet with food or milk as needed Orally Three times a day, Taking Cyclobenzaprine HCl 5 MG Tablet 1 tablet as needed Orally Three times a day, Discontinued Colyte with Flavor Packs 240 GM Solution Reconstituted as directed Orally Over the specified time., Medication List reviewed and reconciled with the patient * Allergies:?Gabapentin, Amlod ipine Besylate, Naproxen, Fluoxetine. Objective: * Vitals:?Wt: 252 lbs, Ht: 66. 75 in, BMI:39.76 Index, BP: 00/00 mm Hg. * Examination: ???General Examination: ?GENERAL APPEARANCE:?in no acute distress.?HEAD:?normocephalic.?EYES:?sclera non-icteric.?ORAL CAVITY:?mucosa moist.?NECK/THYROID:?no lymphadenopathy.?SKIN:?anicteric.?HEART:?S1, S2 normal, no murmurs.?LUNGS:?clear to auscultation bilaterally.?CHEST:?normal shape and expansion.?ABDOMEN:?soft, nontender, nondistended, bowel sounds present, no organomegaly .?EXTREMITIES:?no clubbing, cyanosis, or edema.?PSYCH:?cognitive function intact.? Assessment: * Assessment: 1.?Gastroesophageal reflux d isease, unspecified whether esophagitis present - K21.9 (Primary)?2.?Colon cancer screening - Z12.11?3.?Family history of colon cancer - Z80.0? At this time, she is doing w ell. Her reflux symptoms are under good control. We discussed diet, lifestyle modifications, and weight management regarding the treatment of reflux. She will continue her present regimen. She is due for colorectal cancer screening. This will be arranged. She understands risks and benefits and agrees to proceed. She is advised to stop metformin and hydrochlorothiazide the day before the procedure and NSAIDs one week before the procedure. Plan: * Treatment: * Procedure Codes:?3017F COLOR ECTAL CA SCREEN DOC REV, G9903 Pt scrn tbco id as non user, G9744 PATIENT NOT ELIG D/T ACTIVE DX HTN * Preventive Medicine:? ??Counseling:?Care goal follow-up plan:?Above Normal BMI Follow-up?Giving encouragement to exercise,?BMI management provided?Yes.? * Follow Up:?1 Year * * Sign off status: Completed true * Provider:?Sherwin Lama MD Date:?1 05/21/2023 Generated for Ascencion pappas/Vickie/eTransmitting on:?08/18/2024 12:17 PM EDT History and Physical Notes * HPI (History of Present Illness) Category Sub-Category Detail Notes Category Not es New symptom(s) The patient is a pleasant 48-year-old woman seen today in consultation. She has a history of gastroesophageal reflux disease with substernal burning precipitated by typical foods including spicy foods and fatty foods. She has no dysphagia, hematemesis, or melena. Symptoms have been well-controlled on ranitidine. She has a family history of colon cancer and last underwent colonoscopy in 2019 with removal of a hyperplastic polyp. She is due for followup. She has no complaints of rectal bleeding or change in her bowel habits. Examination Category Sub-Category Detail Notes Category Not es General Examination GENERAL APPEARANCE: in no acute di stress HEAD: normocephalic EYES: sclera non-icteric NECK/THYROID: no lymphadenopathy HEART: S1, S2 normal, no mu rmurs CHEST: normal shape and exp ansion LUNGS: clear to auscultatio n bilaterally ABDOMEN: soft, nontender, non distended, bowel sounds present, no organomegaly SKIN: anicteric EXTREMITIES: no clubbing, cyanosi s, or edema PSYCH: cognitive function i ntact ORAL CAVITY: mucosa moist
--- OUTSIDE RECORDS SUMMARY | 2024-08-18 12:17 | XMS_ITS | Patient Health Record ---
Author Organization [facility] Address [address] [place] [address] Care Team Providers Care Events Associate Name Role Phone PATRIC MUNROE MD Primary Care Provider Sherwin Martinez Jr Unavailable Allergies Allergen (clinical drug ingredient) Drug/Non Drug Allergy documented on EMR Reaction Allergy Type Onset Date Status naproxen Naproxen Unknown Drug Allergy Active gabapentin Gabapentin Unknown Drug Allergy Activ e fluoxetine Fluoxetine Unknown Drug Allergy Activ e amlodipine Amlodipine Besylate Unknown Drug Allergy Active Results Component Value Reference Range Notes Glucose, Whole Blood Reviewed date:04/25/2024 01:43:20 PM Interpretation: Performing Lab:[facility], [address] [place] [id number] Notes/Report: Glucose, Whole Blood 93 60-115 mg/dL METER # : [id number] Reason For Referral Referring Provider First Name PATRIC Referring Provider Last Name LUDWIG Referred Organization [facility] Referred Provider Sherwin Lama Jr Referred Address [address] [place] [address],[address],[place], [place],[address], Referred Provider Specialty Gastroentero logy General Notes Rocío Frederick 024 02:55:59 PM EST > requested a [facility] referral from [facility] for visit with Dr. 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 [address] [place] [address] 03/20/2024 Sherwin Lama Jr Colon cancer screening Z12.11 ; Gastroesophageal reflux disease, unspecified whether esophagitis present K21.9 and Family history of colon cancer Z80.0 Assessments Encounter Date Diagnosis (ICD Code) Assessment Notes Treatment Notes Treatment Clinical Notes Section Notes 04/25/2024 Colon cancer screening (ICD-10 - Z12.11) 04/25/2024 Family history of colon cancer (ICD-10 - Z80.0) 03/20/2024 Colon cancer screening (ICD-10 - Z12.11) [...] week before the procedure. Plan Of Treatment Future Test Test Name Order Date COLONOSCOPY 08/29/2012 COLONOSCOPY 07/24/2018 COLONOSCOPY 03/20/2024 Insurance Providers Payer Name Payer Address Payer Phone Subscriber Number Group Number Insured Name Patient Relationship to Insured Coverage Start Date Coverage End Date [facility] [address] [place] [id number] LENA MALLORY Self - patient is the insured Medical (General) History Medical History History ICD Code Gastroesophageal reflux disease Back and neck pain Varicose veins Hypertension Depression Elevated body mass index Colonoscopy 02/01, Endometrial hyperplasia/abnormal uterine bleeding Surgical History Surgery Date(Month/Year) Tubal ligation Cholecystectomy Back surgery IUD placement
--- OUTSIDE RECORDS SUMMARY | 2024-08-18 12:17 | XMS_ITS | Encounter Summary ---
Author Organization [employer] Address [address] 7t [place] [address] Care Team Providers Care Mothercraft Nurse Name Role Phone Divya Frye Primary Care Provider [phone] Reason for Visit * Reason Onset Date Comments Med Refill 12/25/2023 Encounter Details Date Type Department Care Team ([facility] st Contact Info) Description 12/25/2023 Telephone [facility] MEDICINE [address] [place] [address] Divya Frye FNP [address] [place] [address] Med Refill Social History Tobacco Use Types [...] 50 MG tablet To be sent to: [id number] [facility] documented in this encounter Plan of Treatment Upcoming Encounters Date Type Department Care Team ([facility] Contact Info) Description 11/04/2024 3:15 PM EDT Office Visit [facility] OPTOMETRY [address] [place] [address] Gabbie Santizo, OD [address] [place] [address] 11/12/2024 3:15 PM EDT Clinical Support [facility] MED & PEDS [address] [place] [address] Arabella Corey, RN [address] [place] [address] 11/24/2024 9:00 AM EDT Office Visit [facility] MED & PEDS [address] [place] [address] Divya Frye FNP [address] [place] [address] documented as of this encounter Visit Diagnoses Not on filedocumented in this encounter Additional Health Concerns Assessment Noted Time PHQ-9 Depression Total Score: 12 024 10:09 AM EST documented as of this encounter Care Teams Mothercraft Nurse Relationship Specialty Start Date End Date Divya Frye FNP [address] [place] [address] PCP - General Family Medicine 12/14/21 documented as of this encounter
--- OUTSIDE RECORDS SUMMARY | 2024-08-18 12:18 | XMS_ITS | Encounter Summary ---
Author Organization [employer] Address [address] [facility] 7t [place] [address] Care Team Providers Care Maintenance Scheduler Name Role Phone Divya Frye DAVE Primary Care Provider [phone] Encounter Details Date Type Department Care Team (Late st Contact Info) Description 06/09/2024 Orders Only [facility] MED & PEDS [address] [place] [address] Provider, MD Richa Social History Tobacco Use [...] Description 11/04/2024 3:15 PM EDT Office Visit [facility] OPTOMETRY [address] [place] [address] Gabbie Santizo, OD [address] [place] [address] 11/12/2024 3:15 PM EDT Clinical Support [facility] MED & PEDS [address] [place] [address] Arabella Corey, KO [address] [place] [address] 11/24/2024 9:00 AM EDT Office Visit [facility] MED & PEDS [address] [place] [address] Divya Frye FNP [address] [place] [address] documented as of this encounter Procedures Procedure [...] documented as of this encounter Care Teams Maintenance Scheduler Relationship Specialty Start Date End Date Divya Frye FNP [address] [place] [address] PCP - General Family Medicine 12/14/21 documented as of this encounter
--- OUTSIDE RECORDS SUMMARY | 2024-08-18 12:18 | XMS_ITS ---
Author Organization [facility] Address [address] [place] [address] Care Team Providers Care Nurse Instructor Name Role Phone LUDWIG JOSHI, PATRIC Primary Care Provider Sherwin Martinez Jr Unavailable [phone] REASON FOR VISIT family history,colonoscopy Encounters Encounter Location Date Provider Diagnosis [facility] Out[facility] [address] [place], [place] [phone] 04/25/2024 Sherwin Lama Jr Colon cancer screening Z12.11 and Family history of colon cancer Z80.0 Assessments Encounter Date Diagnosis (ICD Code) Assessment Notes Treatment Notes Treatment Clinical Notes Section Notes 04/25/2024 Colon cancer screening (ICD-10 - Z12.11) 04/25/2024 Family history of colon cancer (ICD-10 - Z80.0) Plan Of Treatment No Information Progress Notes * LENA BENITEZDOB:1975 (49 yo F)Acc No.[id number]:04/25/2024 COLON WITH MAC Patient:?LENA BENITEZ Provider:?Sherwin Lama MD :1975???Age:48 Y???Sex:Female D ate:04/25/2024 Address:[address] [place] [address], [place] Pcp:PATRIC MUNROE MD Subjective: * Chief Complaints: * ???1. Family history,colonos copy. * Medical History:? Objective: * Vitals:? Assessment: * Assessment: 1.?Colon cancer screening - Z12.11 (Primary)???2.?Family history of colon cancer - Z80.0??? Plan: * Treatment: * Procedure Codes:?29191 DIAGN OSTIC COLONOSCOPY, 0529F INTRVL 3+YRS PTS CLNSCP DOCD * * The named appointment provid er may or may not be the originator of this progress note, and it is not deemed complete until electronically signed by the appointment provider. Sign off status: Pending * Provider:?Sherwin Lama MD Date:?0 04/25/2024 Generated for Ascenc[employer] pappas/Vickie/Sammyitting on:?08/18/2024 08:57 AM EDT
--- OUTSIDE RECORDS SUMMARY | 2024-08-18 12:18 | XMS_ITS | Encounter Summary ---
Author Organization [employer] Address [address] [facility] 7t [place] [address] Care Team Providers Care Concrete Block Maker Name Role Phone Divya Frye Primary Care Provider [phone] Reason for Visit * Reason Onset Date Comments Appointment Request 04/13/2023 Encounter Details Date Type Department Care Team ([facility] st Contact Info) Description 04/13/2023 Telephone [facility] MEDICINE [address] [place] [address] Divya Frye FNP [address] [place] [address] Appointment Request Social History Tobacco Use Types [...] t he electric, gas, oil or water [employer] threatened to shut off services in your [...] Description 11/04/2024 3:15 PM EDT Office Visit [facility] OPTOMETRY [address] [place] [address] Gabbie Santizo, OD [address] [place] [address] 11/12/2024 3:15 PM EDT Clinical Support [facility] MED & PEDS [address] [place] [address] Arabella Corey, RN [address] [place] [address] 11/24/2024 9:00 AM EDT Office Visit [facility] MED & PEDS [address] [place] [address] Divya Frye FNP [address] [place] [address] documented as of this encounter Visit Diagnoses Not on filedocumented in this encounter Additional Health Concerns Assessment Noted Time PHQ-9 Depression Total Score: 13 023 1:20 PM EDT documented as of this encounter Care Teams Concrete Block Maker Relationship Specialty Start Date End Date Divya Fyre FNP [address] [place] [address] PCP - General Family Medicine 12/14/21 documented as of this encounter
--- OUTSIDE RECORDS SUMMARY | 2024-08-18 12:18 | XMS_ITS | Encounter Summary ---
Author Organization [employer] Address [address] [facility] [address] [place] [address] Care Team Providers Care Veneer Slicing Machine Operator Name Role Phone Divya Frey Primary Care Provider [phone] Reason for Visit * Reason Onset Date Comments Med Refill 09/21/2023 Encounter Details Date Type Department Care Team ([facility] st Contact Info) Description 09/21/2023 Telephone [facility] MEDICINE [address] [place] [address] Divya Frye FNP [address] [place] [address] Med Refill Social History Tobacco Use Types [...] refill : traMADol (Ultram) 50 MG tablet [id number] [place], [place] - [address] [place] [address] AT [facility] documented in this encounter Plan of Treatment Upcoming Encounters Date Type Department Care Team ([facility] st Contact Info) Description 11/04/2024 3:15 PM EDT Office Visit [facility] OPTOMETRY [address] [place] [address] Gabbie Santizo, OD [address] [place] [address] 11/12/2024 3:15 PM EDT Clinical Support [facility] MED & PEDS [address] [place] [address] Arabella Corey, RN [address] [place], [place] [phone] 11/24/2024 9:00 AM EDT Office Visit [facility] MED & PEDS [address] [place] [address] Divya Frye FNP [address] [place] [address] documented as of this encounter Visit Diagnoses Not on filedocumented in this encounter Additional Health Concerns Assessment Noted Time PHQ-9 Depression Total Score: 12 024 10:09 AM EST documented as of this encounter Care Teams Veneer Slicing Machine Operator Relationship Specialty Start Date End Date Divya Frye FNP [address] [place] [address] PCP - General Family Medicine 12/14/21 documented as of this encounter
--- OUTSIDE RECORDS SUMMARY | 2024-08-18 12:18 | XMS_ITS | Encounter Summary ---
Author Organization [employer] Address [address] [facility] 7[address] [place] [address] Care Team Providers Care Line Construction Engineer Name Role Phone Divya Frye Primary Care Provider [phone] Reason for Visit * Reason Onset Date Comments Med Refill 08/14/2024 Encounter Details Date Type Department Care Team ([facility] st Contact Info) Description 08/14/[address] [facility] MEDICINE [address] [place] [address] Divya Frye FNP [address] [place] [address] Med Refill Social History Tobacco Use Types [...] encounter Miscellaneous Notes * Telephone Encounter - Manuel Diehl - 08/14/2024 11:15 AM EDT TC from pt requesting medication refill. Medications needing refill : traMADol (Ultram) 50 MG tablet To be sent to: [id number] [place], [place] - [address] [facility] documented in this encounter Plan of Treatment Upcoming Encounters Date Type Department Care Team ([facility] st Contact Info) Description 11/04/2024 3:15 PM EDT Office Visit [facility] OPTOMETRY [address] [place] [address] Gabbie Santizo, OD [address] [place] [address] 11/12/2024 3:15 PM EDT Clinical Support [facility] MED & PEDS [address] [place] [address] Arabella Corey, KO [address] [place], [place] 11/24/2024 9:00 AM EDT Office Visit [facility] MED & PED[facility] [address] [place], [place] [phone] Divya Frye FNP [address] [place], [place] documented as of this encounter Visit Diagnoses Not on filedocumented in this encounter Additional Health Concerns Assessment Noted Time PHQ-9 Depression Total Score: 7 04/21/19 25 9:31 AM EST documented as of this encounter Care Teams Line Construction Engineer Relationship Specialty Start Date End Date Divya Frye FNP [address] [place] [address] PCP - General Family Medicine 12/14/21 documented as of this encounter
--- OUTSIDE RECORDS SUMMARY | 2024-08-18 12:18 | XMS_ITS | Encounter Summary ---
Author Organization [employer] Address [address] [facility] 7 [place] [address] Care Team Providers Care Union Organiser Name Role Phone Divya Frye Primary Care Provider [phone] Reason for Visit * Reason Onset Date Comments Chart Prep 08/15/2024 Encounter Details Date Type Department Care Team ([facility] Contact Info) Description 08/15/2024 Telephone [facility] MED & PEDS [address] [place] [address] Divya Frye FNP [address] [place] [address] Chart Prep Social History Tobacco Use Types [...] Telephone Encounter - Remberto Rowe [place] - 08/15/2024 9:07 AM EDT Chart Prep Labs: done Images: done Referrals: complete Vaccines due: Hep B Screenings: not applicable Overdue care gaps: SBIRT and PISQ documented in this encounter Plan of Treatment Upcoming Encounters Date Type Department Care Team ([facility] st Contact Info) Description 11/04/2024 3:15 PM EDT Office Visit [facility] OPTOMETRY [address] [place] [address] Gabbie Santizo, OD [address] [place] [address] 11/12/2024 3:15 PM EDT Clinical Support [facility] MED [facility] PEDS [address] [place] [address] Arabella Corey, RN [address] [place] [address] 11/24/2024 9:00 AM EDT Office Visit [facility] MED & PEDS [address] [place] [address] Divya Frye FNP [address] [place], [place] documented as of this encounter Visit Diagnoses Not on filedocumented in this encounter Additional Health Concerns Assessment Noted Time PHQ-9 Depression Total Score: 7 04/21/19 25 9:31 AM EST documented as of this encounter Care Teams Union Organiser Relationship Specialty Start Date End Date Divya Frye FNP [address] [place] [address] PCP - General Family Medicine 12/14/21 documented as of this encounter
--- OUTSIDE RECORDS SUMMARY | 2024-08-18 12:18 | XMS_ITS | Encounter Summary ---
Author Organization [employer] Address [address] [facility] [address] [place] [address] Care Team Providers Care Feed Research Aide Name Role Phone Divya Frye DAVE Primary Care Provider [phone] Encounter Details Date Type Department Care Team (Latest Contact Info) Description 08/18/2024 Travel Social History Tobacco Use Types Packs/Day Years Used Date Smoking Tobacco: Former Cigarettes Passive Smoke Exposure: Never Smokeless Tobacco: Never Depression Answer Date Recorded Patient Health Questionnaire-9 Score 7 04/21/2024 Patient Health Questionnaire-9 Score 7 04/21/2024 Last PHQ-9: Questionnaire Data Not on file 0 04/21/2024 Housing Stability Answer Date Recorded What is your housing situation today? I have ty idaz 04/21/[address] you li [...] Description 11/04/2024 3:15 PM EDT Office Visit [facility] OPTOMETRY [address] [place] [address] TarkaGabbie, OD [address] [place] [address] 11/12/2024 3:15 PM EDT Clinical Support [facility] MED & PEDS [address] [place] [address] Arabella Corey, RN [address] [place] [address] 11/24/2024 9:00 AM EDT Office Visit [facility] MED & PEDS [address] [place] [address] Divya Frye FNP [address] [place] [address] documented as of this encounter Visit Diagnoses Not on filedocumented in this encounter Additional Health Concerns Assessment Noted Time PHQ-9 Depression Total Score: 7 04/21/19 25 9:31 AM EST documented as of this encounter Care Teams Feed Research Aide Relationship Specialty Start Date End Date Divya Frye FNP [address] [place] [address] PCP - General Family Medicine 12/14/21 documented as of this encounter
--- OUTSIDE RECORDS SUMMARY | 2024-08-18 12:18 | XMS_ITS | Encounter Summary ---
Author Organization [employer] Address [address] [facility] 7[address] [place] [address] Care Team Providers Care Interior Design Consultant Name Role Phone Divya Frye Primary Care Provider [phone] Encounter Details Date Type Department Care Team (Latest Contact Info) Description 08/18/2024 10:00 AM EDT Office Visit [facility] MED & PEDS [address] [place] [address] Divya Frye FNP [address] [place] [address] Subclinical hypothyroidism (Primary Dx); Essential hypertension; Chronic bilateral low back pain without sciatica; Hot flashes Social History Tobacco Use Types Packs/Day Years [...] Sign Reading Time Taken Comments Blood Pressure 132/80 08/18/2024 9:48 AM EDT Pulse 64 08/18/2024 9:48 AM EDT Temperature 36.4 ??C (97.5 ??F) 08/18/2024 9:48 AM ED T Respiratory Rate 20 08/18/2024 9:48 AM EDT Oxygen Saturation - - Inhaled Oxygen Concentration - - Weight 116 kg (255 lb) 08/18/2024 9:48 AM EDT Height 167.6 cm (5' 6 ) 08/18/2024 9:48 AM EDT Body Mass Index 41.16 08/18/2024 9:48 AM EDT documented in this encounter Patient Instructions * Patient Instructions* DAVE Lopez - 08/18/2024 10:00 AM EDT Please complete lab work today, you will be contacted with the results Please repeat thyroid lab work in 8 weeks (lab order is already active) documented in this encounter Plan of Treatment Upcoming Encounters Date Type Department Care Team (Late st Contact Info) Description 11/04/2024 3:15 PM EDT Office Visit [facility] OPTOMETRY [address] [place], [place] [phone] Gabbie Santizo, OD [address] [place], [place] [phone] 11/12/2024 3:15 PM EDT Clinical Support [facility] MED & PEDS [address] [place] [address] Arabella Corey, RN [address] [place], [place] 11/24/2024 9:00 AM EDT Office Visit [facility] MED [facility] P[facility] [address] [place] [address] Divya Frye FNP [address] [place] [address] Scheduled Orders Name Type Priority Associated Diagnoses Orde r Schedule TSH W/Reflex to FT4 Lab Routine Subclinical hypothyroidism Expected: 09/01/2024 (Approximate), Expires: 08/18/2025 FSH Lab Routine Hot flashes Expected: 08/18/2024, Expires: 08/18/2025 Prolactin Lab Routine Hot flashes Expected: 08/18/2024 (Approximate), Expires: 08/18/2025 Estrogen, Total, Serum Lab Routine Hot flashes Expected: 08/18/2024 (Approximate), Expires: 08/18/2025 LH Lab Routine Hot flashes Expected: 08/18/2024 (Approximate), Expires: 08/18/2025 documented as of this encounter Visit Diagnoses Diagnosis Subclinical hypothyroidism- Primary Other specified acquired hypothyroidism Essential hypertension Unspecified essential hypertension Chronic bilateral low back pain without sciatica Hot flashes documented in this encounter Additional Health Concerns Assessment Noted Time PHQ-9 Depression Total Score: 7 04/21/19 25 9:31 AM EST documented as of this encounter Care Teams Interior Design Consultant Relationship Specialty Start Date End Date Divya Frye FNP [address] [place] [address] PCP - General Family Medicine 12/14/21 documented as of this encounter
--- OUTSIDE RECORDS SUMMARY | 2024-08-18 12:18 | XMS_ITS | Clinical Summary ---
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 Forming Name Role Phone Divya Frye DAVE Primary Care Provider [phone] Allergies Active Allergy Reactions Criticality Noted Date Comments Amlodipine Rash Low 03/30/2010 Cetirizine Itching 08/12/2021 Other reaction(s): Tight chest Fluoxetine 02/09/2012 Other reaction(s): paranoia, dizziness, closed in Gabapentin 03/30/2010 Naproxen 03/30/2010 Other reaction(s): face swelled Nitrofurantoin 10/04/2017 Other reaction(s): hand and feet tingling, hand and feet tingling Senna 08/24/2014 Other reaction(s): facial rash Medications fluticasone (Flonase) 50 MCG/ACT nasal sprayIndications: Seasonal allergic rhinitis, unspecified trigger SHAKE LIQUID AND USE 2 SPRAYS IN EACH NOSTRIL EVERY MORNING NEEDED 16 g 024 Active buPROPion SR (Wellbutrin SR) 200 MG 12 hr tablet TAKE 1 TABLET(200 MG) BY MOUTH TWICE DAILY. DO NOT CRUSH, CHEW, OR SPLIT 180 tablet 3 024 Active lidocaine (Lidoderm) 5 % patchIndications: Chronic bilateral low back pain without sciatica APPLY 1 PATCH TOPICALLY TO THE SKIN EVERY DAY. MAY WEAR UP TO 12 HOURS. NEEDED FOR PAIN 30 patch 11 024 Active ibuprofen 800 MG tabletIndications :Chronic bilateral low back pain without sciatica TAKE 1 TABLET BY MOUTH THREE TIMES DAILY NEEDED 100 tablet 1 024 Active lidocaine (Lidoderm) 5 % patchIndications: Chronic bilateral low back pain without sciatica APPLY 1 PATCH TOPICALLY TO THE SKIN EVERY DAY. MAY WEAR UP TO 12 HOURS. NEEDED FOR PAIN 90 patch 3 024 Active metoprolol tartrate (Lopressor) 50 MG tabletIndications :Essential hypertension TAKE 1 TABLET(50 MG) BY MOUTH EVERY DAY 90 tablet 3 024 Active loratadine (Claritin) 10 MG tabletIndications :Seasonal allergic rhinitis, unspecified trigger TAKE 1 TABLET BY MOUTH EVERYDAY NEEDED 90 tablet 3 024 Active D3-1000 25 MCG (1000 UT) capsule TAKE 1 CAPSULE BY MOUTH EVERY MORNING 90 capsule 3 024 Active senna-docusate sodium (Senokot-S) 8.6-50 MG tabletIndications :Constipation, unspecified constipation type Take 1-2 tablets by mouth if needed each day for constipation. 60 tablet 3 025 2025 Active naloxone (Narcan) 4 mg/0.1 mL nasal spray Administer 1 spray (4 mg) into affected nostril(s) if needed for opioid reversal. May repeat every 2-3 minutes if needed, alternating nostrils, until medical assistance becomes available. 2 each 2 025 2025 Active traMADol (Ultram) 50 MG tabletIndications :Chronic bilateral low back pain, unspecified whether sciatica present Take 1 tablet (50 mg) by mouth if needed each day for severe pain. 15 tablet 025 Active hydroCHLOROthiazi de (HYDRODiuril) 25 MG tabletIndications :Essential hypertension TAKE 1 TABLET(25 MG) BY MOUTH IN THE MORNING 90 tablet 3 025 Active cyclobenzaprine (Flexeril) 5 MG tabletIndications :Chronic bilateral low back pain without sciatica TAKE 1 TABLET BY MOUTH TWICE DAILY NEEDED 90 tablet 3 025 Active levothyroxine (Synthroid) 50 MCG tablet Take 1 tablet (50 mcg) by mouth before breakfast. 90 tablet 1 025 2025 Active hydroCHLOROthiazi de (HYDRODiuril) 25 MG tabletIndications :Essential hypertension TAKE 1 TABLET(25 MG) BY MOUTH IN THE MORNING 90 tablet 3 024 2024 Discontinued(R eorder (will not trigger notification to Pharmacy)) cyclobenzaprine (Flexeril) 5 MG tabletIndications :Chronic bilateral low back pain without sciatica TAKE 1 TABLET BY MOUTH TWICE DAILY NEEDED 90 tablet 3 024 2024 Discontinued(R eorder (will not trigger notification to Pharmacy)) levothyroxine (Synthroid) 25 MCG tabletIndications :Subclinical hypothyroidism Take 1 tablet by mouth every morning on an empty stomach. Wait 30 minutes before eating breakfast or caffeine-conta ining beverage. 90 tablet 025 2024 Discontinued traMADol (Ultram) 50 MG tabletIndications :Chronic bilateral low back pain, unspecified whether sciatica present Take 1 tablet (50 mg) by mouth if needed each day for severe pain. 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 Referral to [facility] sent 09/01/23 Numbness and tingling in left hand 08/21/2023 Assessment & Plan (08/21/2023 9:26 AM EDT): Reviewed EMG report with pt: 08/16/23 borderline study MRI cervical spine pending Healthcare maintenance 12/05/2022 Overview (05/26/2024): Contraception: tubal ligation (also w/ Mirena placed October 2021) Mammo: 12/24/23: Mammo BIRADS 1 at [facility] PAP: September 2021, NIL/-HPV. Following with Dr. [...] bleeding 12/05/2022 Overview (05/27/2023): ?? Followed by [facility] PRODUCT SUPPORT TECHNICIAN - Dr. Benitez ?? Mirena IUD placed 11/09/21 ?? Jan 2022: EMB negative for endometrial hyperplasia and/or malignancy. Repeat w/o malignancy. Assessment & Plan (12/05/2022 6:55 PM EDT): Provider to reach out to [facility] PRODUCT SUPPORT TECHNICIAN regarding results if available at this time [...] Encounters Date Type Department Care Team Description 08/18/2024 10:00 AM EDT Office Visit [facility] [address] [place] [address] Divya Frye FNP Subclinical hypothyroidism (Primary Dx); Essential hypertension; Chronic bilateral low back pain without sciatica; Hot flashes 08/18/2024 Travel 08/15/2024 Telephone [facility] [address] [place] [address] Divya Frye FNP Chart Prep 08/14/2024 Refill [facility] [address] [place] [address] Arabella Corey RN Chronic bilateral low back pain, unspecified whether sciatica present 08/14/2024 Telephone [facility] [address] [place] [address] Divya Frye FNP Med Refill 08/12/2024 Orders Only [facility] [address] [place] [address] Divya Frye FNP 08/05/2024 9:00 AM EDT Office Visit [facility] [address] [place] [address] Gabbie Santizo, OD Presbyopia (Primary Dx); Refractive amblyopia, bilateral; Other disorders of optic nerve, not elsewhere classified, bilateral 08/05/2024 Travel 07/23/2024 3:15 PM EDT Clinical Support [facility] [address] [place] [address] Arabella Corey RN Chronic bilateral low back pain without sciatica (Primary Dx); Long-term current use of benzodiazepine 07/23/2024 Travel 07/08/2024 Refill [facility] [address] [place], [place] [phone] Phalen, Divya, ELECTRICAL ASSISTANT Chronic bilateral low back pain, unspecified whether sciatica present 06/27/2024 Population Health Risk Score [facility] ([facility]) [address] [phone] Provider, [facility] Generic 06/20/2024 1:30 PM EST Office Visit [facility] [address] [place] [address] Gabino Prajapati MD Viral upper respiratory tract infection (Primary Dx) 06/20/2024 Travel 06/20/2024 Telephone [facility] [address] [place] [phone] Divya Frye FNP Nurse Triage 06/18/2024 Telephone [facility] [address] [place] [address] Divya Frye FNP Lab Review 06/13/2024 Orders Only [facility] [address] [place] [address] Divya Frye FNP 06/09/2024 Orders Only [facility] [address] [place] [address] ProviderRicha MD 06/03/2024 Refill [facility] [address] [place] [address] Divya Frye, DAVE Chronic bilateral low back pain, unspecified whether sciatica present 05/28/2024 Telephone [facility] [address] [place] [address] Yane Olivares RN Results 05/28/2024 Orders Only [facility] [address] [place] [address] Divya Frye ELECTRICAL ASSISTANT Elevated TSH (Primary Dx) 05/26/2024 9:15 AM EST Office Visit [facility] [address] [place] [address] Divya Frye FNP Chronic bilateral low back pain without sciatica (Primary Dx); Encounter for immunization; Essential hypertension; Cervical spondylosis; Healthcare maintenance; Constipation, unspecified constipation type 05/26/2024 Telephone [facility] [address] [place] [address] Divya Frye, DAVE Durable Medical Equipment 05/26/2024 Travel 05/21/2024 Telephone [facility] [address] [place] [address] Remberto Ritter [place] Chart Prep from Last 3 Months Immunizations Name Administration [...] 20 08/18/2024 9:48 AM EDT Oxygen Saturation 99% 06/20/2024 1:37 PM EST Inhaled Oxygen Concentration - - Weight 116 kg (255 lb) 08/18/2024 9:48 AM EDT Height 167.6 cm (5' 6 ) 08/18/2024 9:48 AM EDT Body Mass Index 41.16 08/18/2024 9:48 AM EDT Plan of Treatment Upcoming Encounters Date Type Department Care Team (Late st Contact Info) Description 11/04/2024 3:15 PM EDT Office Visit [facility] [address] [place] [address] Gabbie Santizo, OD [address] [place] [address] 11/12/2024 3:15 PM EDT Clinical Support [facility] [address] [place] [address] Arabella Corey, RN [address] [place] [address] 11/24/2024 9:00 AM EDT Office Visit [facility] [address] [place] [address] Divya Frye FNP [address] [place] [address] Health Maintenance Due Date Last Done Comments CT Colonography 1973 FIT DNA/Cologuard 1973 FIT 1973 FOBT 1973 Sigmoidoscopy 1973 Family Planning (PISQ) 1988 Pap Smear 1994 Hepatitis B Vaccines (2 of 2 - CpG 2-dose series) 01/18/2024 12/21/2023 Mammogram 12/23/2024 12/24/2023, 0910/2022, 10/15/2020, Additional history exists Depression Screening 04/21/2025 04/21/2024, 04/21/19 25 SDOH Screening 04/21/2025 04/21/2024 Alcohol/Substance Use Screening 08/18/2025 08/18/2024 Tobacco Screening 08/18/2025 08/18/2024 Cervical Cancer Screening 09/21/2026 HPV/Cotest 09/21/2026 09/21/2021, 060 11/2021, 02/14/2017 Colonoscopy 04/25/2029 04/25/2024, 01/15/2019 Colorectal [...] Completed 02/22/2024, 12/21/2023 HIV Screening Completed 05/26/2024, 11/2021, 09/21/2021 Hepatitis C Screening Discontinued 05/26/2024 [...] Date/Time Associated Diagnosis Comments T4, FREE Routine 08/12/2024 11:19 AM EDT TSH W/REFLEX TO FT4 Routine 08/12/2024 1 1:19 AM EDT Subclinical hypothyroidism OCT, OPTIC NERVE - OU - BOTH EYES Routine 08/05/2024 9:00 AM EDT Other disorders of optic nerve, not elsewhere classified, bilateral POCT SAMY-14 URINE DRUG SCREEN Routine 07/23/2024 3:15 PM EDT Chronic bilateral low back pain without sciatica Long-term current use of benzodiazepine POCT INFLUENZA A Routine 06/20/2024 2:14 PM EST Viral upper respiratory tract infection POCT RAPID COVID ANTIGEN Routine 06/20/2024 2:14 PM EST Viral upper respiratory tract infection POCT RAPID STREP A Routine 06/20/2024 2: 12 PM EST Viral upper respiratory tract infection POCT INFLUENZA B Routine 06/20/2024 2:12 PM EST Viral upper respiratory tract infection ALBUMIN, RANDOM URINE W/CREATININE Routine 06/13/2024 11:00 AM EST Healthcare maintenance CHLAMYDIA/N. GONORRHOEAE RNA, TMA, UROGENITAL Routine 06/13/2024 10:00 AM EST Healthcare maintenance T4, FREE Routine 06/13/2024 9:23 AM EST TSH W/REFLEX TO FT4 Routine 06/13/2024 9 :23 AM EST Elevated TSH T4, FREE Routine 05/26/2024 10:18 AM EST [...] HM COLONOSCOPY Routine 04/25/2024 3:57 PM EST BI MAMMOGRAM SCREENING TOMOSYNTHESIS BILATERAL Routine 12/24/2023 3:15 PM EDT ZZZ HISTORICAL HPV E6/E7 RFLX ALFRED 16 18/45 Routine 09/21/2021 2:22 PM EDT from Last 3 Months or Most Recently Relevant to Health Maintenance Results * (ABNORMAL) TSH W/Reflex to FT4 (08/12/2024 11:19 AM EDT) Only the most recent of3 resultswithin the time period is included. TSH reflex Free T4 4.27(H) 0.32 - 4.0 uIU/mL [facility] Blood Venous blood specimen / Unknown 08/12/2024 11:19 AM EDT 08/12/2024 2:20 PM EDT Divya CE Interactive ELECTRICAL ASSISTANT LAB BLOOD ORDERABLES Final Res ult Performing Organization Address City/[facility]/ZIP Co de Phone Number [facility] [address] [place] [address] [phone] * T4, Free (08/12/2024 11:19 AM EDT) Only the most recent of3 resultswithin the time period is included. Free T4 (Free Thyroxine) 1.03 0.71 - 1.85 ng/dL [facility] 08/12/2024 11:1 9 AM EDT 08/12/2024 2:20 PM EDT [employer] ELECTRICAL ASSISTANT LAB BLOOD ORDERABLES Final Res ult Performing Organization Address City/[facility]/ZIP Co de Phone Number [facility] [address] [place] [address] [phone] * OCT, Optic Nerve - OU - Both Eyes (08/05/2024 9:00 AM EDT) Narrative Gabbie Santizo, OD - 08/06/2024 9:41 AM EDT Images from the original result were not included. OCT OPTIC NERVE INTERPRETATION Optical Coherence Tomography Interpretation Report Reliability: OD: SS 39, adequate quality image OS: SS 41, adequate quality image Measurements: Avg RNFL thickness OD: ??98 microns OS: ??96 microns Test findings: OD: Borderline thin RNFL superior and temporal quadrants. Blunted foveal reflex. OS: Borderline thin RNFL temporal. Blunted foveal reflex. Impression and Plan: RTC in 3 months for baseline visual field (VF). Gabbie Santizo OD OPHTH TOMOGRAPHY Final Result * POCT SAMY-14 Urine Drug Screen (07/23/2024 3:15 PM EDT) [facility] TCA, Urine Positive Urine Urine specimen obtained by clean catch procedure / Unknown 07/23/2024 3:15 PM EDT Narrative Arabella Corey RN - 07/23/2024 3:15 PM EDT Lot# [id number] Exp: 12-03-25 Divya Frye ELECTRICAL ASSISTANT POINT OF CARE TEST ENTER/EDIT ORDERABLES Final Result * POCT Rapid Covid-19 BinaxNOW (06/20/2024 2:14 PM EST) [facility] Rapid COVID Ag Negative QC Media Lot # [id number] Comment:controls passed Lot# Expiration Date [id number] Swab 06/20/2024 2:14 PM EST Gabino Prajapati MD POINT OF CARE TEST ENTER/ED IT ORDERABLES Final Result * POCT Rapid Influenza A OSOM (06/20/2024 2:14 PM EST) [facility] Rapid Influenza A Ag Negative Negative, Indeterminate QC Media Lot # [id number] Lot# Expiration Date [id number] Comment:controls passed Swab Nasopharyngeal structure / Unknown 06/20/2024 2:14 PM EST Gabino Prajapati MD POINT OF CARE TEST ENTER/ED IT ORDERABLES Final Result * POCT Rapid Influenza B OSOM (06/20/2024 2:12 PM EST) Pathologist [facility] Rapid Influenza B Ag Negative Negative, Indeterminate QC Media Lot # [id number] Comment:contols passed Lot# Expiration Date Swab 06/20/2024 2:12 PM EST Gabino Prajapati MD POINT OF CARE TEST ENTER/ED IT ORDERABLES Final Result * POCT Rapid Strep A OSOM (06/20/2024 2:12 PM EST) [facility] Rapid Strep A Screen Negative Negative, None Detected QC Media Lot # [id number] Lot# Expiration Date Comment:control passed Swab 06/20/2024 2:12 PM EST Gabino Prajapati MD POINT OF CARE TEST ENTER/ED IT ORDERABLES Final Result * Albumin, Random Urine W/Creatinine (06/13/2024 11:00 AM EST) [facility] Creatinine, Urine 58.96 mg/dL [facility] Microalbumin Urine <5.0 mg/L [facility] Microalbum Creatinine Ratio Ur TNP <30 ug/mg cr [facility] Comment:Unable to calculate albumin/creatinine ratio due to lowmicroalbumin or creatinine result. Urine 06/13/2024 11:0 0 AM EST 06/13/2024 2:37 PM EST Divya Frye ELECTRICAL ASSISTANT LAB URINE ORDERABLES Final Res ult [facility] [address] [place] [phone] * Chlamydia/N. Gonorrhoeae RNA, TMA, Urogenitial (06/13/2024 10:00 AM EST) [facility] CT PCR NOT DETECTED Not Detect. [facility] Comment:A not detected test result does not exclude the possibilityof infection because test results can be affected byimproper specimen collection, concurrent antibiotic therapy,or the number of organisms in the specimen which may bebelow the sensitivity of the test. As with many diagnostictests, results from the Xpert CT/NG assay should beinterpreted in conjunction with other laboratory andclinical data available to the clinician.Xpert CT/NG performance has not been evaluated in patientsless than 14 years of age. The assay should not be used forthe evaluationof suspected sexual abuse or for other medico-legalindications. Additional testing is recommended in anycircumstance when false positive or false negative resultscould lead to adverse medical, social or psychologicalconsequences. NG PCR NOT DETECTED Not Detect. [facility] Comment:A not detected test result does not exclude the possibilityof infection because test results can be affected byimproper specimen collection, concurrent antibiotic therapy,or the number of organisms in the specimen which may bebelow the sensitivity of the test. As with many diagnostictests, results from the Xpert CT/NG assay should beinterpreted in conjunction with other laboratory andclinical data available to the clinician.Xpert CT/NG performance has not been evaluated in patientsless than 14 years of age. The assay should not be used forthe evaluationof suspected sexual abuse or for other medico-legalindications. Additional testing is recommended in anycircumstance when false positive or false negative resultscould lead to adverse medical, social or psychologicalconsequences. Urine (Urine, Random) 06/13/2024 10:00 AM EST 06/13/2024 2:40 PM EST Narrative [facility] - 06/13/2024 4:27 PM EST Urine us Divya Frye [facility] MICROBIOLOGY - GENERAL ORD ERABLES Final Result [facility] [address] [place] [phone] * Hepatitis C Viral RNA, Quantitative, Real-Time PCR (05/26/2024 10:18 AM EST) Hepatitis C Viral Load <15 NOT DETECTED NOT DETECTED IU/mL [facility] HCV Log PCR <1.18 NOT DETECTED NOT DETECTED Log IU/mL [facility] Comment:For additional infor keren, please refer [email or web address].Rodati/faq/[email or web address](This link is being provided for informational/educational purposes only.)THIS TEST WAS PERFORMED AT:[employer] [place] [phone] LOPEZ MD Blood 05/26/2024 10:1 8 AM EST 05/26/2024 1:59 PM EST us Divya Frye ELECTRICAL ASSISTANT LAB BLOOD ORDERABLES Final Res ult [facility] [address] [place] [phone] [phone] * (ABNORMAL) CBC auto differential (05/26/2024 10:18 AM EST) [facility] White Blood Count 8.4 4.8 - 10.8 X10*3/uL [facility] Red Blood Count 4.71 4.20 - 5.50 X10*6/uL [facility] Hemoglobin 13.9 12.0 - 16.0 g/dl [facility] Hematocrit 42.3 37.0 - 47.0 % [facility] Mean Corpuscular Volume 89.8 80.0 - 98.0 fL [facility] Mean Corpuscular Hemoglobin 29.5 27.0 - 33.0 pg [facility] Mean Corpuscular HGB Conc 32.9 31.0 - 35.0 g/dl [facility] Red Cell Distribution Width 13.1 11.0 - 16.0 % [facility] Platelet Count 195 160 - 400 X10*3/uL [facility] Mean Platelet Volume 11.2 9.4 - 12.3 fL [facility] Neutrophils Percent Auto 69.9 45 - 73 % [facility] Imm Gran Pct Auto 0.5(H) 0.0 - 0.4 % [facility] Lymphocytes Percent Auto 21.5 20 - 40 % [facility] Monocytes Percent Auto 5.9 2 - 11 % [facility] Eosinophils Percent Auto 1.5 0 - 4 % [facility] Basophils Percent Auto 0.7 0 - 2 % [facility] NRBC Pct Auto 0.0 0.0 - 0.2 /100WBC [facility] Neutrophils Absolute Auto 5.9 2.0 - 8.3 x10*3/uL [facility] Imm Gran Abs Auto 0.04(H) 0.00 - 0.03 X10*3/uL [facility] Lymphocytes Absolute Auto 1.8 1.2 - 4.9 X10*3/uL [facility] Monocytes Absolute Auto 0.5 0.1 - 1.2 X10*3/uL [facility] Eosinophils Absolute Auto 0.1 0.0 - 0.4 X10*3/uL [facility] Basophils Absolute Auto 0.1 0.0 - 0.2 X10*3/uL [facility] NRBC Abs Auto 0.000 0.0 - 0.012 X10*3/uL [facility] Blood Venous blood specimen / Unknown 05/26/2024 10:18 AM EST 05/26/2024 1:59 PM EST us Divya Frye ELECTRICAL ASSISTANT LAB BLOOD ORDERABLES Final Res ult [facility] [address] [place] [phone] * RPR (Monitor) with Reflex to??Titer (05/26/2024 10:18 AM EST) RPR (Monitor) w/Refl Titer NON-REACTI VE NON-REACT JOSE [facility] Comment:THIS TEST WAS PERFOR MED AT:[employer] [place] [phone] LOPEZ MD Rapid Plasma Reagin Ab Titer TNP [facility] Blood Venous blood specimen / Unknown 05/26/2024 10:18 AM EST 05/26/2024 1:59 PM EST Divya Frye [facility] BLOOD ORDERABLES Final Res ult Performing Organization Address [facility]/ZIP Co de Phone Number [facility] [address] [place] [phone] * HIV-1/2 Antigen and Antibodies, Fourth Generation, with Reflexes (05/26/2024 10:18 AM EST) HIV AB/AG Nonreactive Nonreactive [facility] Comment:HIV-1 p24 Ag and/or HIV-1/HIV-2 Ab not detected.A test result that is nonreactive does not exclude thepossibility of exposure to or infection with HIV-1 and/orHIV-2. Nonreactive results in this assay for individualswith prior exposure to HIV-1 and/or HIV-2 may be due toantigen and antibody levels that are below the limit ofdetection of this assay.[employer] HIV Ag/Ab Combo assay result andsupplemental assay results should be interpreted inconjunction with the patient's clinical presentation,history and other laboratory results. If the results areinconsistent with clinical evidence, additional testing issuggested to confirm the result. Blood Venous blood specimen / Unknown 05/26/2024 10:18 AM EST 05/26/2024 1:59 PM EST Divya Frye [facility] BLOOD ORDERABLES Final Res ult Performing Organization Address City/[facility]/ZIP Co de Phone Number [facility] [address] [place] [phone] * Lipid Panel, Standard (05/26/2024 10:18 AM EST) Triglycerides 61 <150 mg/dL [facility] Comment:Desirable Triglyceri de: less than 150 mg/dLBorderline High Triglyceride 150-199 mg/dLHigh Triglyceride: 200-499 mg/dLVery High Triglyceride: greater than or equal to 5OO mg/dL Cholesterol 156 <200 mg/dL [facility] Comment:Desirable Cholestero l: less than 200 mg/dLBorderline High Cholesterol: 200-239 mg/dLHigh Cholesterol: greater than 239 mg/dL LDL Cholesterol Calculated 84 <100 mg/dL [facility] Comment:Desirable LDL: less than 100 mg/dLNear Optimal/Above Optimal LDL: 110- 129 mg/dLBorderline High LDL: 130-159 mg/dLHigh LDL: 160-189 mg/dLVery High LDL: greater than or equal to 190 mg/dL HDL Cholesterol 60 >40 mg/dL [facility] Comment:Desirable HDL: great er than 40 mg/dL Note: This HDL assay may give artificially low results in patients with liver disease. Blood Venous blood specimen / Unknown 05/26/2024 10:18 AM EST 05/26/2024 1:59 PM EST us Divya Frye ELECTRICAL ASSISTANT LAB BLOOD ORDERABLES Final Res ult [facility] [address] [place], [place] [phone] * (ABNORMAL) Comprehensive Metabolic Panel (05/26/2024 10:18 AM EST) Sodium 143 135 - 145 mmol/L [facility] Potassium 3.4 3.3 - 5.1 mmol/L [facility] Chloride 107 96 - 108 mmol/L [facility] Carbon Dioxide 30(H) 22 - 29 mmol/L [facility] Anion Gap 9(L) 12 - 20 [facility] Urea Nitrogen (BUN) 13 9 - 16 mg/dL [facility] Creatinine, Serum 0.87 0.5 - 1.4 mg/dL [facility] Estimated Glomerular Filt Rate >60 [facility] Comment:Chronic Kidney Disea se: Estimated GFR < 60 mL/min/1.43h7Yygenb Kidney Disease: Estimated GFR < 15 mL/min/1.73m2 Glucose 74 60 - 115 mg/dL [facility] Calcium 9.5 8.4 - 10.2 mg/dL [facility] Bilirubin, Total 0.5 0.0 - 1.0 mg/dL [facility] Aspartate Amino Transferase 21 5 - 31 U/L [facility] Alanine Aminotransferase 22 0 - 31 U/L [facility] Total Protein 7.2 6.5 - 8.0 g/dL [facility] Albumin Level 4.1 3.5 - 5.0 g/dL [facility] Alkaline Phosphatase 62 39 - 117 U/L [facility] Blood Venous blood specimen / Unknown 05/26/2024 10:18 AM EST 05/26/2024 1:59 PM EST Divya Lisbethemely ELECTRICAL ASSISTANT LAB BLOOD ORDERABLES Final Res ult Performing Organization Address [facility] Co de Phone Number [facility] [address] [place] [phone] * Hemoglobin A1c (05/26/2024 10:15 AM EST) Hemoglobin A1c 4.8 <6.0 % [facility] Comment:Hemoglobin A1C Refer ence Range Adults: 4.8 - 6.0 % Non diabetic: < 6.0 % Goal: < 7.0 %Additional Action Suggested: > 8.0 %Note: Hemoglobin A1c results are invalid for patients with abnormal amounts of HbF. Blood transfusions may impact the HbA1c concentration in the patient sample. Estimated Average Glucose 91 mg/dL [facility] Comment:eAG = Estimated ave rage glucose which is %A1C expressed asaverage glucose, using the formula of the Y5X-LuaydbjMaulpkw Glucose study (ADAG), Diabetes Care, Vol.31,#8,Nov. 2007 Blood Venous blood specimen / Unknown 05/26/2024 10:15 AM EST 05/26/2024 1:59 PM EST Divyagaurav Bobemely ELECTRICAL ASSISTANT LAB BLOOD ORDERABLES Final Res ult Performing Organization Address [facility] Co de Phone Number [facility] [address] [place] [address] [place] [phone] * Hm Colonoscopy (04/25/2024 3:57 PM EST) us Historical Provider MD HEALTH MAINTENANCE Final Result * BI Mammogram Screening Tomosynthesis Bilateral (12/24/2023 3:15 PM EDT) Anatomical Region Laterality Modality Breast Bilateral Mammography 12/24/2023 3:15 PM EDT Narrative 01/08/2024 9:24 AM EDT ? [facility] ? [address] ?[place] [address] ? Mammography Report ? Signed ? Patient: DorcaselodiaStephanie ?MR#: [id number] ?? [id number] ? : 1975 ?Acct:[id number] ? Age/Sex: 48 / F ?ADM Date: 12/24/23 ? Loc: HO.MAMMO ? Attending Dr: Divya Frye ELECTRICAL ASSISTANT ? Ordering Physician: Divya Frye ELECTRICAL ASSISTANT ?Results: 1Negat ?? jose ? Date of Service: 12/24/23 ?Follow Up: 1 Year From Orig ?? inal Mammogram ? Procedure(s): MM tomosynthesis screening BI ?? Accession Number(s): [id number] ? cc: Divya Frye ELECTRICAL ASSISTANT ? EXAMINATION: ?? MM SCREENING DIGITAL BREAST [...] DD/ 1515 ? TD/TT: 12/24/23 1536 ? Continuous Process Machine Operator: ? Procedure Note Zaida Garces - 01/08/2024 [facility] [address] [place] [address] [place] [address] Mammography Report Signed Patient: Stephanie OwenMR#: [id number] : 1975Acct:[id number] Age/Sex: 48 / FADM Date: 12/24/23 Loc: BILL Attending Dr: Divya Frye ELECTRICAL ASSISTANT Ordering Physician: Divya Frye FNPResults: 1Negat jose Date of Service: 12/24/23Follow Up: 1 Year From Orig inal Mammogram Procedure(s): MM tomosynthesis screening BI Accession Number(s): [id number] cc: Divya Frye EXAMINATION: MM SCREENING DIGITAL [...] 01/08/24 0921 DD/ 1515 TD/TT: 12/24/23 1536 Continuous Process Machine Operator: Divya Frye ELECTRICAL ASSISTANT IMG BI PROCEDURES Edited Resul t - Final * HPV E6/E7 RFLX ALFRED 16 18/45 (09/21/2021 2:22 PM EDT) HPV mRNA E6/E7 rflx Not Detected Not Detected [facility] Comment: Methodology: Data Entry Representative-Mediated Amplification This assay detects E6/E7 viral messenger RNA (mRNA) from 14 high-risk HPV types (16,18,31,33,35,39,45,51,52,56,58,59,66,68). Cervical sources are required for HPV testing. If a vaginal source from a patient who has had a total hysterectomy with removal of cervix was submitted, please contact the testing laboratory for alternative testing options. For additional information, please refer to http://education.4Blox.HEXIO/faq/CTB548h8 (This link if provided for information/ educational purposes only.) THIS TEST WAS PERFORMED AT: [facility] [address] [facility] [facility] [address] [facility] [place], [place] ??[phone] IQRA LOPEZ MD 09/21/2021 2:22 PM EDT us Gaudencio Benitez MD HISTORICAL/NON ORDERABLE LABS Fi nal Result [facility] Anywhere [address] from Last 3 Months or Most Recently Relevant to Health Maintenance Insurance [employer] C3 Care Teams Yardage Control Operator Forming Relationship Specialty Start Date End Date Divya Frye FNP [address] [place] [address] PCP - General Family Medicine 12/14/21
--- OUTSIDE RECORDS SUMMARY | 2024-08-18 12:18 | XMS_ITS | Encounter Summary ---
Author Organization [employer] Address [address] [facility] 7 [place] [address] Care Team Providers Care Coagulating Operator Name Role Phone Divya Frye Primary Care Provider [phone] Reason for Visit * Reason Onset Date Comments Med Refill 08/22/2022 Appt w/PCP 08/22/2022 Encounter Details Date Type Department Care Team (Late st Contact Info) Description 08/22/2022 Telephone [facility] [address] [place] [address] Divya Frye FNP [address] [place] [address] Med Refill; Appt w/PCP Social History Tobacco [...] EDT TC to pt, reviewed pt's last [facility] appt date and last time she received Tramadol. Explained that she has a new provider and will need to be seen before Tramadol would be considered. Pt agreeable. Pt scheduled to see Shivam Frye 09/04/22 @ 1pm for medication review. * Telephone Encounter - Danilomamadousarasophie Wolf Benton - 08/22/2022 10:58 AM EDT TC from pt requesting med refill on Tramadol 50 Mg Tablet Please sent to [id number] - [place] - [address] [facility] [address] documented in this encounter Plan of Treatment Upcoming Encounters Date Type Department Care Team (Late st Contact Info) Description 11/04/2024 3:15 PM EDT Office Visit [facility] [address] [place] [address] Gabbie Santizo, OD [address] [place] [address] 11/12/2024 3:15 PM EDT Clinical Support [facility] [address] [place] [address] Arabella Corey, RN [address] [place] [address] 11/24/2024 9:00 AM EDT Office [facility] [address] [place] [address] Divya Frye FNP [address] [place] [address] documented as of this encounter Visit Diagnoses Not on filedocumented in this encounter Care Teams Coagulating Operator Relationship Specialty Start Date End Date Divya Frye FNP [address] [place] [address] PCP - General Family Medicine 12/14/21 documented as of this encounter
--- OUTSIDE RECORDS SUMMARY | 2024-08-18 12:18 | XMS_ITS | Encounter Summary ---
Author Organization [employer] Address [address] [facility] 7t [place] [address] Care Team Providers Care Social Security Benefits Interviewer Name Role Phone Divya Frye DAVE Primary Care Provider [phone] Reason for Visit * Reason Onset Date Comments Med Refill 08/14/2024 Encounter Details Date Type Department Care Team ([facility] st Contact Info) Description 08/14/[address] [facility]S [address] [place] [address] Arabella Corey, RN [address] [place] [address] Chronic bilateral low back pain, unspecified whether [...] 11/04/2024 3:15 PM EDT Office Visit [facility] [address] [place] [address] Gabbie Santizo, OD [address] [place] [address] 11/12/2024 3:15 PM EDT Clinical Support [facility] [address] [place] [address] Arabella Corey, RN [address] [place] [address] 11/24/2024 9:00 AM EDT Office Visit [facility] [address] [place] [address] Divya Frye FNP [address] [place] [address] documented as of this encounter Visit Diagnoses Diagnosis Chronic bilateral low back pain, unspecified whether sciatica present documented in this encounter Additional Health Concerns Assessment Noted Time PHQ-9 Depression Total Score: 7 04/21/19 25 9:31 AM EST documented as of this encounter Care Teams Social Security Benefits Interviewer Relationship Specialty Start Date End Date Divya Frye FNP [address] [place] [address] PCP - General Family Medicine 12/14/21 documented as of this encounter
[2024-08-19 05:14] LABS: Follicle Stimulating Hormone 66.5 mIU/mL; Lutenizing Hormone 35.9 mIU/mL; Prolactin 3.8 ng/mL
[2024-08-22 02:19] LABS: Estrogen 128 pg/mL
== END 2024-08-18 10:48 | disposition home or self-care (01) ==
LOC: HO.CHCLDS 10:47
PROVIDERS: Visit Provider Registered Nurse
DX: R23.2 Flushing (principal)
CPT/HCPCS: 36415; 82672; 83001; 83002; 84146

== ENCOUNTER 2024-09-15 09:12 | Outpatient (REF) | payer MEDICAID, SELFPAY ==
--- OUTSIDE RECORDS SUMMARY | 2024-09-15 09:49 | XMS_ITS ---
Author Organization [facility] Address [address] [place] [address] Care Team Providers Care Administrative Support Technician Name Role Phone PATRIC MUNROE MD Primary [...] Problem Status W/U Status Risk Notes Problem [id number] Gastroesophageal reflux disease, unspecified whether esophagitis present (K21.9) Active confirmed Vital Signs Blood pressure systolic 00 mm Hg 03/20/20 24 Blood pressure diastolic 00 mm Hg 024 Height 66.75 in 03/20/2024 Weight 252 lbs 03/20/2024 BMI 39.76 kg/m2 03/20/2024 Encounters Encounter Location Date Provider Diagnosis [facility] [address] [place] [address] 03/20/2024 Sherwin Lama Jr Colon cancer screening [...] Notes * LENA BENITEZDOB:1975 (48 yo F)Acc No.[id number]:03/20/2024 Progress Notes Patient:?LENA BENITEZ Provider:?Sherwin Lama MD :1975???Age:48 Y???Sex:Female D ate:03/20/2024 Address:[address] [place], [place] [id number] Pcp:PATRIC MUNROE MD Subjective: * Chief Complaints: [...] MD Date:?1 05/21/2023 Generated for [employer] pappas/Vickie/eTransmitting on:?09/15/2024 09:49 AM EDT History and Physical Notes * HPI [...]
[2024-09-15 15:01] LABS: TSH reflex Free T4 4.68 uIU/mL (0.32-4.0)
[2024-09-15 19:12] LABS: Free T4 (Free Thyroxine) 1.11 ng/dL (0.71-1.85)
== END 2024-09-15 09:13 | disposition home or self-care (01) ==
LOC: CF 09:12
PROVIDERS: Visit Provider Registered Nurse
DX: E03.8 Other specified hypothyroidism (principal)
CPT/HCPCS: 36415; 84439; 84443

== ENCOUNTER 2024-10-10 09:02 | Outpatient (REF) | payer MEDICAID, SELFPAY ==
--- OUTSIDE RECORDS SUMMARY | 2024-10-10 09:20 | XMS_ITS | Patient Health Record ---
Author Organization [facility] Address [address] [facility] [address] [place] [address] Care Team Providers Care Occupational Health And Safety Officer Name Role Phone PATRIC MUNROE MD Primary Care Provider Sherwin Martinez Jr Unavailable [phone] Allergies Allergen (clinical drug ingredient) Drug/Non Drug Allergy documented on EMR Reaction Allergy Type Onset Date Status naproxen Naproxen Unknown Drug Allergy Active gabapentin Gabapentin Unknown Drug Allergy Activ e fluoxetine Fluoxetine Unknown Drug Allergy Activ e amlodipine Amlodipine Besylate Unknown Drug Allergy Active Results Component Value Reference Range Notes Glucose, Whole Blood Reviewed date:04/25/2024 01:43:20 PM Interpretation: Performing Lab:[facility], [address] [place] [phone] Notes/Report: Glucose, Whole Blood 93 60-115 mg/dL METER # : [id number] Reason For Referral Referring Provider First Name PATRIC Referring Provider Last Name LUDWIG Referred Organization [facility] Referred Provider Sherwin Lama Jr Referred Address [address] [place] [address],[address],[place], [place],[address], Referred Provider Specialty Gastroentero logy General Notes Rocío Frederick 024 02:55:59 PM EST > requested a [facility] referral from [facility] for visit with Dr. Lama on [phone] Referral Priority Routine Medications Medication SIG (Take, [...] Problem Status W/U Status Risk Notes Problem [id number] FPC (curre nt) use of non-steroidal anti-inflammatories (NSAID) (Z79.1) Active confirmed Problem 094465222 Family history o f colon cancer (Z80.0) Active confirmed Problem [id number] FPC (curre nt) use of oral hypoglycemic drugs (Z79.84) Active confirmed Problem 743649900 Gastroesophageal reflux disease, unspecified whether esophagitis present (K21.9) Active confirmed Vital Signs Blood pressure diastolic 00 mm Hg 03/20/2024 Height 66.75 in 03/20/2024 Blood pressure systolic 00 mm Hg 03/20/2024 Weight 252 lbs 03/20/2024 BMI 39.76 kg/m2 03/20/2024 Encounters Encounter Location Date Provider Diagnosis [facility] [place] [address] [place], [place] [id number] 04/25/2024 Sherwin Lama Jr Colon cancer screening Z12.11 and Family history of colon cancer Z80.0 [facility] [address] [place] [address] 03/20/2024 Sherwin Lama Jr Colon cancer screening [...] Start Date Coverage End Date MEDICAID OF [facility] [address] [place] [phone] [id number] LENA MALLORY Self - patient is the insured Medical (General) History Medical History History ICD Code Gastroesophageal reflux disease Back and neck pain Varicose veins Hypertension Depression Elevated body mass index Colonoscopy 02/01, Endometrial hyperplasia/abnormal uterine bleeding Surgical History Surgery Date(Month/Year) Tubal ligation Cholecystectomy Back surgery IUD placement
[2024-10-10 14:51] LABS: TSH reflex Free T4 3.69 uIU/mL (0.32-4.0)
== END 2024-10-10 09:03 | disposition home or self-care (01) ==
LOC: HO.CHCLDS 09:02
PROVIDERS: Visit Provider Registered Nurse
DX: E03.8 Other specified hypothyroidism (principal)
CPT/HCPCS: 36415; 84443

== ENCOUNTER 2024-10-16 10:56 | Outpatient (REF) | payer MEDICAID, SELFPAY ==
--- OUTSIDE RECORDS SUMMARY | 2024-10-16 11:46 | XMS_ITS | Encounter Summary ---
Author Organization [employer] Address [address] [facility] 7 [place] [address] Care Team Providers Care Tube Drawing Supervisor Name Role Phone Divya Frye Primary Care Provider [phone] Reason for Visit * Reason Onset Date Comments Med Refill 03/03/2024 Encounter Details Date Type Department Care Team ([facility] st Contact Info) Description 03/03/2024 Telephone [facility] [address] [place] [address] Divya Frye FNP [address] [place] [address] Med Refill Social History Tobacco Use Types [...] 50 MG tablet To be sent to: [facility][id number] documented in this encounter Plan of Treatment Upcoming Encounters Date Type Department Care Team (Late st Contact Info) Description 11/04/2024 3:15 PM EDT Office Visit [facility] [address] [place] [address] Gabbie Santizo, OD [address] [place] [address] 11/12/2024 3:15 PM EDT Clinical Support [facility] [address] [place] [address] Arabella Corey RN [address] [place] [address] 11/24/2024 9:00 AM EDT Office Visit [facility] [address] [place] [address] Divya Frye FNP [address] [place] [address] documented as of this encounter Visit Diagnoses Not on filedocumented in this encounter Additional Health Concerns Assessment Noted Time PHQ-9 Depression Total Score: 12 024 10:09 AM EST documented as of this encounter Care Teams Tube Drawing Supervisor Relationship Specialty Start Date End Date Divya Frye FNP [address] [place] [address] PCP - General Family Medicine 12/14/21 documented as of this encounter
--- OUTSIDE RECORDS SUMMARY | 2024-10-16 11:46 | XMS_ITS | Patient Health Record ---
Author Organization [facility] Address [address] [facility] [address] [place] [address] Care Team Providers Care Safety Security Officer Name Role Phone PATRIC MUNROE MD Primary Care Provider Sherwin Martinez Jr Unavailable [phone] Allergies Allergen (clinical drug ingredient) Drug/Non Drug Allergy documented on EMR Reaction Allergy Type Onset Date Status naproxen Naproxen Unknown Drug Allergy Active gabapentin Gabapentin Unknown Drug Allergy Activ e fluoxetine Fluoxetine Unknown Drug Allergy Activ e amlodipine Amlodipine Besylate Unknown Drug Allergy Active Results Component Value Reference Range Notes Glucose, Whole Blood Reviewed date:04/25/2024 01:43:20 PM Interpretation: Performing Lab:[facility], [address] [place] [phone] Notes/Report: Glucose, Whole Blood 93 60-115 mg/dL METER # : [id number] Reason For Referral Referring Provider First Name PATRIC Referring Provider Last Name LUDWIG Referred Organization [facility] Referred Provider Sherwin Lama Jr Referred Address [address] [place] [address],[address],[place], [place],[address], Referred Provider Specialty Gastroentero logy General Notes Rocío Frederick 024 02:55:59 PM EST > requested a [facility] referral from [facility] for visit with Dr. Lama on [phone] Referral Priority Routine Medications Medication SIG (Take, [...] Problem Status W/U Status Risk Notes Problem [id number] snf (curre nt) use of non-steroidal anti-inflammatories (NSAID) (Z79.1) Active confirmed Problem 006810521 Family history o f colon cancer (Z80.0) Active confirmed Problem [id number] keno terminal operator (curre nt) use of oral hypoglycemic drugs (Z79.84) Active confirmed Problem 245625377 Gastroesophageal reflux disease, unspecified whether esophagitis present (K21.9) Active confirmed Vital Signs Blood pressure diastolic 00 mm Hg 03/20/2024 Height 66.75 in 03/20/2024 Blood pressure systolic 00 mm Hg 03/20/2024 Weight 252 lbs 03/20/2024 BMI 39.76 kg/m2 03/20/2024 Encounters Encounter Location Date Provider Diagnosis [facility] [address] [place], [place] [phone] 04/25/2024 Sherwin Lama Jr Colon cancer screening Z12.11 and Family history of colon cancer Z80.0 [facility] [address] [place] [address] 03/20/2024 Sherwin Lama Jr Colon cancer screening [...] Start Date Coverage End Date MEDICAID OF [facility] [address] [place] [phone] [id number] LENA MALLORY Self - patient is the insured Medical (General) History Medical History History ICD Code Gastroesophageal reflux disease Back and neck pain Varicose veins Hypertension Depression Elevated body mass index Colonoscopy 02/01, Endometrial hyperplasia/abnormal uterine bleeding Surgical History Surgery Date(Month/Year) Tubal ligation Cholecystectomy Back surgery IUD placement
[2024-10-16 15:43] LABS: Calcium 8.9 mg/dL (8.4-10.2); Magnesium 1.9 mg/dL (1.6-2.6)
[2024-10-16 15:56] LABS: Folate 5.1 ng/mL (> or = 4.0); Vitamin B12 240 pg/mL (200-900)
== END 2024-10-16 10:57 | disposition home or self-care (01) ==
LOC: HO.CHCLDS 10:56
PROVIDERS: Visit Provider Registered Nurse
DX: R20.0 Anesthesia of skin (principal)
CPT/HCPCS: 36415; 82306; 82310; 82607; 82746; 83735

== ENCOUNTER 2024-12-29 15:00 | Outpatient (REF) | payer MEDICAID, SELFPAY ==
--- OUTSIDE RECORDS SUMMARY | 2024-04-25 05:10 | XMS_ITS ---
Author Organization [facility] Address [address] [place] [address] Care Team Providers Care Tea Bag Packer Name Role Phone LUDWIG JOSHI, PATRIC Primary Care Provider Sherwin Martinez Jr Unavailable [phone] REASON FOR VISIT family history,colonoscopy Encounters Encounter Location Date Provider Diagnosis [facility] Outpatient [address] [place], [place] [phone] 04/25/2024 Sherwin Lama Jr Colon cancer screening Z12.11 and Family history of colon cancer Z80.0 Assessments Encounter Date Diagnosis (ICD Code) Assessment Notes Treatment Notes Treatment Clinical Notes Section Notes 04/25/2024 Colon cancer screening (ICD-10 - Z12.11) 04/25/2024 Family history of colon cancer (ICD-10 - Z80.0) Plan Of Treatment No Information Progress Notes * LENA BENITEZDOB:1975 (49 yo F)Acc No.[id number]:04/25/2024 COLON WITH MAC Patient: LENA STONE Provider: Marysol Lama MD :1975 A ge:48 Y S ex:Female Date:04/25/2024 Address[address] [place], [place] [id number] Pcp:PATRIC MUNROE MD Subjective: * Chief Complaints: * 1 . Family history,colonoscopy. * Medical History: Objective: * Vitals: Assessment: * Assessment: 1. C olon cancer screening - Z12.11 (Primary) 2 . F amily history of colon cancer - Z80.0 Plan: * Treatment: * Procedure Codes: 4 5378 DIAGNOSTIC COLONOSCOPY, 0529F INTRVL 3+YRS PTS CLNSCP DOCD * * The named appointment provid er may or may not be the originator of this progress note, and it is not deemed complete until electronically signed by the appointment provider. Sign off status: Pending * Provider: Marysol Lama MD Date: 0 04/25/2024 Generated for Ascencion pappas/Vickie/Sammyitting on: 0 12/29/2024 08:26 PM EDT
--- NOTE | ~2024-12-29 | MM_ITS ---
EXAMINATION: MM SCREENING DIGITAL BREAST TOMOSYNTHESIS, BILATERAL CLINICAL INFORMATION: Screening. Asymptomatic. COMPARISON: Comparison made to multiple prior, most recent December 24, 2023, and most remote October 15, 2020. TECHNIQUE: Digital breast tomosynthesis is performed in mediolateral oblique and craniocaudal views along with computer-aided detection (CAD). Synthesized 2D images are generated from the tomosynthesis. FINDINGS: BREAST COMPOSITION: There are scattered areas of fibroglandular density (ACR BI-RADS breast composition Category b). BILATERAL BREASTS: No significant masses, suspicious calcifications or other abnormalities are seen in either breast. MM/MM tomosynthesis screening BI IMPRESSION: BILATERAL BREASTS: Negative, no mammographic evidence of malignancy. Normal interval follow-up is recommended in 12 months. ASSESSMENT: BI-RADS 1 - Negative RECOMMENDATION: Routine annual mammography screening. FOLLOW-UP: 1 year F/U This examination should not preclude the clinical evaluation of a suspicious palpable abnormality. This patient's information was entered into a reminder system with a target due date for their next mammogram. Electronically signed by: Gary Ko MD 12/30/2024 06:32 PM EDT
--- OUTSIDE RECORDS SUMMARY | 2024-12-29 20:27 | XMS_ITS | Encounter Summary ---
Author Organization [employer] Address [address] [place] [address] 7 [place] [address] Care Team Providers Care Transit Department Clerk Name Role Phone Divya Frye Primary Care Provider [phone] Reason for Visit * Reason Onset Date Comments Med Refill 12/09/2024 Encounter Details Date Type Department Care Team ([facility] Contact Info) Description 12/09/2024 Telephone [facility] MED & PEDS [address] [place] [address] Divya Frye FNP [address] [place] [address] Med Refill Social History Tobacco Use Types [...] encounter Miscellaneous Notes * Telephone Encounter - Kassie Ho LPN - 12/09/2024 12:31 PM EDT Medications pended to PCP. * Telephone Encounter - Kun Mustafa - 12/09/2024 12:01 PM EDT TC from pt requesting medication refill. Medications needing refill : fluticasone (Flonase) 50 MCG/ACT nasal spray loratadine (Claritin) 10 MG tablet metoprolol tartrate (Lopressor) 50 MG tablet Any questions contact pt at [phone] [id number] AT [facility] documented in this encounter Plan of Treatment Upcoming Encounters Date Type Department Care Team ([facility] Contact Info) Description 01/19/2025 9:00 AM EDT Office Visit [facility] PEDS [address] [place] [address] Divya Frye FNP [address] [place] [address] 02/26/2025 9:00 AM EST Clinical Support [facility] [address] [place] [address] Arabella Corey, RN [address] [place] [address] documented as of this encounter Visit Diagnoses Not on filedocumented in this encounter Additional Health Concerns Assessment Noted Time PHQ-9 Depression Total Score: 7 04/21/19 25 9:31 AM EST documented as of this encounter Care Teams Transit Department Clerk Relationship Specialty Start Date End Date Divya Frye FNP [address] [place] [address] PCP - General Family Medicine 12/14/21 documented as of this encounter
--- OUTSIDE RECORDS SUMMARY | 2024-12-29 20:27 | XMS_ITS | Encounter Summary ---
Author Organization [employer] Address [address] [facility] 7 [place] [address] Care Team Providers Care Lead Laying And Gluing Machine Operator Name Role Phone Divya Frye Primary Care Provider [phone] Reason for Visit * Reason Onset Date Comments Med Refill 12/25/2023 Encounter Details Date Type Department Care Team ([facility] st Contact Info) Description 12/25/2023 Telephone [facility] [address] [place] [address] Divya Frye FNP [address] [facility] [place] [address] Med Refill Social History Tobacco Use Types [...] 50 MG tablet To be sent to: [id number] [facility] documented in this encounter Plan of Treatment Upcoming Encounters Date Type Department Care Team ([facility] st Contact Info) Description 01/19/2025 9:00 AM EDT Office Visit [facility] [address] [place] [address] Divya Frye FNP [address] [place] [address] 02/26/2025 9:00 AM EST Clinical Support [facility] [address] [place] [address] Arabella Corey, RN [address] [place] [address] documented as of this encounter Visit Diagnoses Not on filedocumented in this encounter Additional Health Concerns Assessment Noted Time PHQ-9 Depression Total Score: 12 024 10:09 AM EST documented as of this encounter Care Teams Lead Laying And Gluing Machine Operator Relationship Specialty Start Date End Date Divya Frye FNP [address] [place] [address] PCP - General Family Medicine 12/14/21 documented as of this encounter
--- OUTSIDE RECORDS SUMMARY | 2024-12-29 20:27 | XMS_ITS | Clinical Summary ---
Author Organization [employer] Address [address] [place] [address] 7 [place] [address] Care Team Providers Care Broadcast Operations Director Name Role Phone Divya Frye HISTORICAL MANUSCRIPTS CURATOR Primary Care Provider [phone] Allergies Active Allergy Reactions Criticality Noted Date Comments Amlodipine Rash Low 03/30/2010 Cetirizine Itching 08/12/2021 Other reaction(s): Tight chest Fluoxetine 02/09/2012 Other reaction(s): paranoia, dizziness, closed in Gabapentin 03/30/2010 Naproxen 03/30/2010 Other reaction(s): face swelled Nitrofurantoin 10/04/2017 Other reaction(s): hand and feet tingling, hand and feet tingling Senna 08/24/2014 Other reaction(s): facial rash Medications buPROPion SR (Wellbutrin SR) 200 MG 12 hr tablet TAKE 1 TABLET(200 MG) BY MOUTH TWICE DAILY. DO NOT CRUSH, CHEW, OR SPLIT 180 tablet 3 Active lidocaine (Lidoderm) 5 % patchIndications: Chronic bilateral low back pain without sciatica APPLY 1 PATCH TOPICALLY TO THE SKIN EVERY DAY. MAY WEAR UP TO 12 HOURS. NEEDED FOR PAIN 30 patch 11 Active lidocaine (Lidoderm) 5 % patchIndications: Chronic bilateral low back pain without sciatica APPLY 1 PATCH TOPICALLY TO THE SKIN EVERY DAY. MAY WEAR UP TO 12 HOURS. NEEDED FOR PAIN 90 patch 3 Active D3-1000 25 MCG (1000 UT) capsule TAKE 1 CAPSULE BY MOUTH EVERY MORNING 90 capsule 3 Active senna-docusate sodium (Senokot-S) 8.6-50 MG tabletIndications [...] available. 2 each 2 025 2025 Active hydroCHLOROthiazi de (HYDRODiuril) 25 MG tabletIndications :Essential hypertension TAKE 1 TABLET(25 MG) BY MOUTH IN THE MORNING 90 tablet 3 Active cyclobenzaprine (Flexeril) 5 MG tabletIndications :Chronic bilateral low back pain without sciatica TAKE 1 TABLET BY MOUTH TWICE DAILY NEEDED 90 tablet 3 025 Active levothyroxine (Synthroid) 50 MCG tabletIndications :Subclinical hypothyroidism Take 1 tablet (50 mcg) by mouth before breakfast. 90 tablet 1 025 2025 Active ibuprofen 800 MG tabletIndications :Chronic bilateral low back pain without sciatica TAKE 1 TABLET BY MOUTH THREE TIMES DAILY NEEDED 100 tablet 1 025 Active estradiol (Vivelle-DOT) 0.0375 MG/24HR Place 1 patch on the skin 2 (two) times a week. 8 patch 11 025 2025 Active fluticasone (Flonase) 50 MCG/ACT nasal sprayIndications: Seasonal allergic rhinitis, unspecified trigger SHAKE LIQUID AND USE 2 SPRAYS IN EACH NOSTRIL EVERY MORNING NEEDED 48 g 025 Active loratadine (Claritin) 10 MG tabletIndications :Seasonal allergic rhinitis, unspecified trigger TAKE 1 TABLET BY MOUTH EVERYDAY NEEDED 90 tablet 3 025 Active metoprolol tartrate (Lopressor) 50 MG tabletIndications :Essential hypertension TAKE 1 TABLET(50 MG) BY MOUTH EVERY DAY 90 tablet 3 025 Active traMADol (Ultram) 50 MG tabletIndications :Chronic bilateral low back pain, unspecified whether sciatica present Take 1 tablet (50 mg) by mouth if needed each day for severe pain. 15 tablet 025 Active fluticasone (Flonase) 50 MCG/ACT nasal sprayIndications: Seasonal allergic rhinitis, unspecified trigger SHAKE LIQUID AND USE 2 SPRAYS IN EACH NOSTRIL EVERY MORNING NEEDED 16 g 11 024 2024 Discontinued metoprolol tartrate (Lopressor) 50 MG tabletIndications :Essential hypertension TAKE 1 TABLET(50 MG) BY MOUTH EVERY DAY 90 tablet 3 024 2024 Discontinued(R eorder (will not trigger notification to Pharmacy)) loratadine (Claritin) 10 MG tabletIndications :Seasonal allergic rhinitis, unspecified trigger TAKE 1 TABLET BY MOUTH EVERYDAY NEEDED 90 tablet 3 024 2024 Discontinued(R eorder (will not trigger notification to Pharmacy)) traMADol (Ultram) 50 MG tabletIndications :Chronic bilateral low back pain, unspecified whether sciatica present Take 1 tablet (50 mg) by mouth if needed each day for severe pain. 15 tablet 025 2024 Discontinued(R eorder (will not trigger notification to Pharmacy)) Active Problems Problem Noted Date Diagnosed Date Menopausal symptoms 09/15/2024 Assessment & Plan (11/24/2024 1:59 PM EDT): - Progesterone IUD in place - Estrogen transdermal patches started on 08/25/2024 - Plan: Switch from weekly to twice weekly dosing. Continue with same dose. -Follow-up in 8 weeks, sooner as needed Assessment & Plan (09/15/2024 9:05 AM EDT): - Progesterone IUD in place - Estrogen transdermal patches started on 08/25/2024 - Plan: Shared decision making to continue with current dose x 1 more month. She will call at end of month if interested in increase of dosage. 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 Referral to [facility] sent 09/01/23 Numbness and tingling [...] administered today Abnormal uterine bleeding 12/05/2022 Overview (08/19/2024): Followed by [facility] - Dr. Eli Manzanaresena IUD placed 11/09/21 The patient had simple endometrial hyperplasia without atypia in 11/04 has been on Mirena IUD since then repeat endometrial biopsy in 02/04 , 06/08 and 11/05 were negative Jan 2022: EMB negative for endometrial hyperplasia and/or malignancy. Repeat w/o malignancy. Assessment & Plan (12/05/2022 6:55 PM EDT): Provider to reach out to [facility] regarding results if available at this time [...] Assessment & Plan (05/27/2023 5:14 PM EST): BP goal < 140/90 mmHg, elevated in office, although reports well controlled at home Continue: Metoprolol 50mg daily hydrochlorothiazide 25mg daily -Continue with low salt diet and routine physical activity/movement Assessment & Plan (12/05/2022 6:38 PM EDT): BP goal < 140/90 mmHg Interest in de-prescribing as BP has been well controlled at home and in office Current medications: Metoprolol 50mg daily hydrochlorothiazide 25mg daily Decrease lisinopril to 10mg [...] Assessment & Plan (12/05/2022 6:47 PM EDT): Hx of chronic low back [...] Assessment & Plan (09/11/2022 1:22 PM EDT): Hx of chronic low back pain being tx primarily with pharmacologic options: topical lidocaine patches, PO cyclobenzaprine, ibuprofen, and tramadol PRN Describes back pain as moderate to severe, and reports only uses tramadol sparingly when pain severe and other methods have not been successful Previous referrals to PT and physiatry, no consult notes or imaging available Sent in refill of Tramadol, however decreased from TID to daily PRN. Reviewed med safety and SE Allergic rhinitis 02/22/2015 Overview (12/05/2022): Continue loratadine 10mg daily PRN Continue flonase PRN Encounters Date Type Department Care Team Description 12/23/2024 Refill [facility] [address] [place] [address] Divya Frye FNP Chronic bilateral low back pain, unspecified whether sciatica present 12/09/2024 Telephone [facility]EDS [address] [place] [address] Divya Frye FNP Med Refill 12/08/2024 Refill [facility] [address] [place] [address] Divya Frye, HISTORICAL MANUSCRIPTS CURATOR Seasonal allergic rhinitis, unspecified trigger 12/08/2024 Refill [facility] [address] [place] [address] Divya Frye, HISTORICAL MANUSCRIPTS CURATOR Seasonal allergic rhinitis, unspecified trigger; Essential hypertension 12/07/2024 Refill [facility] [address] [place] [address] Divya Frye HISTORICAL MANUSCRIPTS CURATOR 11/24/2024 9:00 AM EDT Office Visit [facility] MED & PEDS [address] [place] [address] Divya Frye FNP Menopausal symptoms (Primary Dx); Subclinical hypothyroidism 11/24/2024 Telephone [facility] MED & PEDS [address] [place] [address] Divya Frye HISTORICAL MANUSCRIPTS CURATOR UTOX: Positive TCA 11/24/2024 Travel 11/17/2024 Patient Outreach [facility] [address] [place] [address] Divya Frye, HISTORICAL MANUSCRIPTS CURATOR Pre-visit Planning (Pre visit planning LVM ) 11/12/2024 3:15 PM EDT Clinical Support [facility] MED & PEDS [address] [place] [address] Arabella Corey RN Chronic bilateral low back pain without sciatica (Primary Dx) 11/12/2024 Refill [facility] MED & PEDS [address] [place] [address] Arabella Corey RN Chronic bilateral low back pain, unspecified whether sciatica present 11/12/2024 Travel 10/27/2024 Telephone [facility] [address] [place] [address] Divya Frye FNP Medication Question 10/20/2024 Results Follow-Up [facility] MED & PEDS [address] [place] [address] Divya Frye HISTORICAL MANUSCRIPTS CURATOR Vitamin B12/Folate, Serum Panel, Vitamin D, 25-Hydroxy, Total, Immunoassay, Magnesium, Calcium 10/15/2024 Refill [facility] [address] [place] [address] Phalen, Divya, HISTORICAL MANUSCRIPTS CURATOR Chronic bilateral low back pain, unspecified whether sciatica present; Chronic bilateral low back pain without sciatica 10/15/2024 Refill [facility] [address] [place] [address] Phalen, Divya, HISTORICAL MANUSCRIPTS CURATOR Chronic bilateral low back pain without sciatica 10/13/2024 Results Follow-Up [facility] PEDS [address] [place] [address] Phalen, Divya, HISTORICAL MANUSCRIPTS CURATOR TSH W/Reflex to FT4 10/09/2024 9:15 AM EDT Office Visit [facility] OPTOMETRY [address] [place] [address] David, Leny, OD Presbyopia (Primary Dx) from Last 3 Months Immunizations Immunization Administration Dates Next Due DTP 03/16/2006 HepB-CpG [...] Sign Reading Time Taken Comments Blood Pressure 126/72 11/24/2024 8:57 AM EDT Pulse 64 11/24/2024 8:57 AM EDT Temperature 36.9 C (98.4 F) 11/24/2024 8:57 AM EDT Respiratory Rate 20 11/24/2024 8:57 AM EDT Oxygen Saturation 99% 09/15/2024 8:45 AM EDT Inhaled Oxygen Concentration - - Weight 115 kg (254 lb) 11/24/2024 8:57 AM EDT Height 167.6 cm (5' 6 ) 11/24/2024 8:57 AM EDT Body Mass Index 41 11/24/2024 8:57 AM EDT Plan of Treatment Upcoming Encounters Date Type Department Care Team ([facility] st Contact Info) Description 01/19/2025 9:00 AM EDT Office Visit [facility] MED & PEDS [address] [place] [address] Divya Frye FNP [address] [place] [address] 02/26/2025 9:00 AM EST Clinical Support [facility] MED & PEDS [address] [place] [address] Arabella Corey, RN [address] [place], [place] [phone] Health Maintenance Due Date Last Done Comments CT Colonography 1975 FIT DNA/Cologuard 1975 FIT 1975 FOBT 1975 Sigmoidoscopy 1975 Disability Screening 1975 Family Planning (PISQ) 1988 Hepatitis B Vaccines (2 of 2 - CpG 2-dose series) 01/18/2024 12/21/2023 Influenza Vaccine (#1) 2024 , 01/01/2023, 01/15/2022, Additional history exists Mammogram 12/23/2024 12/24/2023, 10/2022, 10/15/2020, Additional history exists Depression Screening 04/21/2025 04/21/2024, 04/21/19 25 SDOH Screening 04/21/2025 04/21/2024 Alcohol/Substance Use Screening 08/18/2025 08/18/2024 Tobacco Screening 11/24/2025 11/24/2024 Cervical Cancer Screening 09/21/2026 HPV/Cotest 09/21/2026 09/21/2021, 11/2021, 02/14/2017 Pap Smear 09/21/2026 Colonoscopy 04/25/2029 04/25/2024, 01/15/2019 Colorectal Cancer Screening 04/25/2029 Lipid Panel 05/26/2029 05/26/2024, 12/16, 02/17/2021 DTaP/Tdap/Td Vaccines (5 - Td or Tdap) 12/05/2032 12/05/2022, 10/04/2011, 03/16/2006, Additional history exists RSV Patients and Patients Aged 60 years or older (1 - 1-dose 75+ series) 2048 COVID-19 Vaccine Completed 12/21/2023, , 12/05/2022, Additional history exists Zoster Vaccines Completed 02/22/2024, [...] patient's age to complete this topic Meningococcal B Vaccine Aged Out No l onger eligible based on patient's age to complete [...] Procedure Name Priority Date/Time Associated Diagnosis Comments POCT SAMY-14 URINE DRUG SCREEN Routine 11/12/2024 3:35 PM EDT Chronic bilateral low back pain without sciatica CALCIUM Routine 10/16/2024 10:57 AM EDT Numbness of lip MAGNESIUM Routine 10/16/2024 10:57 AM EDT Numbness of lip VITAMIN D,25-OH,TOTAL,IA Routine 10/16/2024 10:57 AM EDT Numbness of lip VITAMIN B12/FOLATE, SERUM PANEL Routine 10/16/2024 10:57 AM EDT Numbness of lip TSH W/REFLEX TO FT4 Routine 10/10/2024 9 :03 AM EDT Subclinical hypothyroidism HEPATITIS C VIRAL RNA, QUANTITATIVE, REAL-TIME PCR Routine 05/26/2024 10:18 AM EST Healthcare maintenance HIV 1/2 ANTIGEN/ANTIBODY, FOURTH GENERATION W/RFL Routine 05/26/2024 10:18 AM EST Healthcare maintenance LIPID PANEL, STANDARD Routine 05/26/2024 10:18 AM EST Healthcare maintenance HM COLONOSCOPY Routine 04/25/2024 3:57 PM EST BI MAMMOGRAM SCREENING TOMOSYNTHESIS BILATERAL Routine 12/24/2023 3:15 PM EDT ZZZ HISTORICAL HPV E6/E7 RFLX ALFRED 16 18/45 Routine 09/21/2021 2:22 PM EDT from Last 3 Months or Most Recently Relevant to Health Maintenance Results * (ABNORMAL) POCT SAMY-14 Urine Drug Screen (11/12/2024 3:35 PM EDT) THC Negative Negative Cocaine Screen, Urine Negative Negative Opiate Screen, Urine Negative Negative Methamphetamine Screen Urine Negative Negative Amphetamine Screen, Urine Negative Negative Benzodiazepines Screen, Urine Negative Negative Barbiturate Screen, Urine Negative Negative Methadone Screen, Urine Negative Negative Buprenophine Screen, Urine Negative Negative TCA, Urine Positive Negative MDMA Urine Negative Negative ng/mL Oxycodone Screen, Urine Negative Negative Phencyclidine (PCP), Urine Negative Negative Propoxyphene, Urine Negative Negative Fentanyl, Urine Negative Negative Urine Urine specimen obtained by clean catch procedure / Unknown 11/12/2024 3:35 PM EDT Narrative Arabella Corey RN - 11/12/2024 3:35 PM EDT Internal Pass Control Lot# [id number] Exp: 02-13-26 Divya Frye [facility] POINT OF CARE TEST ENTER/EDIT ORDERABLES Final Result * Vitamin D, 25-Hydroxy, Total, Immunoassay (10/16/2024 10:57 AM EDT) Vitamin D 25-OH Total 48.2 >30 ng/mL [facility] Comment: Health Based Reference Values*< 20 ng/mL Uxirecuun59-54 ng/mL Insufficient> 30 ng/mL Sufficient*Little TEMPLE. N Engl J Med. 2007;357:266-280There is no well-established upper level of normal vitamin Dlevels. Some laboratories use 50 ng/mL as an upper limit ofnormal. However, toxicity is patient-dependent and may occurat any level. Careful correlation with the patient'spresentation is necessary and, if there is concern forvitamin D toxicity, treatment should be consideredirrespective of the serum level.Care must be taken in interpreting Vitamin D results fromdifferent laboratories and methodologies. Published datademonstrated that results from patients undergoinghemodialysis may show a negative bias when tested withvarious automated 25-OH vitamin D assays when compared toLC-MS/MS.When testing samples from patients whose predominant form ofVitamin D is Vitamin D2, such as patients receiving VitaminD2 supplementation, results that are subtherapeutic shouldbe confirmed with another method such as LC-MS/MS. Blood Venous blood specimen / Unknown 10/16/2024 10:57 AM EDT 10/16/2024 2:53 PM EDT Divya Frye [facility] LAB BLOOD ORDERABLES Final Res ult [facility] [address] [place] [phone] * Vitamin B12/Folate, Serum Panel (10/16/2024 10:57 AM EDT) Vitamin B12 240 200 - 900 pg/mL [facility] Comment:NORMAL 200-900 PG/M L INDETERMINATE 160-199 PG/ML DEFICIENT < 160 PG/ML Folate 5.1 > or = 4.0 ng/mL [facility] Comment:Reference Values:> o r = 4.0 ng/mL< 4.0 ng/mL suggests folate deficiency Methotrexate, aminopterin and folinic acid(leucovorin) are chemotherapeutic agents whose molecularstructures are similar to folate; therefore, the Architectfolate assay cannot be used for patients using these drugs. Blood Venous blood specimen / Unknown 10/16/2024 10:57 AM EDT 10/16/2024 2:53 PM EDT Divay Frye HISTORICAL MANUSCRIPTS CURATOR LAB BLOOD ORDERABLES Final Res ult Performing Organization Address [facility] Co de Phone Number [facility] [address] [place] [phone] * Magnesium (10/16/2024 10:57 AM EDT) Magnesium 1.9 1.6 - 2.6 mg/dL [facility] Blood Venous blood specimen / Unknown 10/16/2024 10:57 AM EDT 10/16/2024 2:53 PM EDT Divya Frye [facility] LAB BLOOD ORDERABLES Final Res ult Performing Organization Address [facility] Phone Number [facility] [address] [place] [phone] * Calcium (10/16/2024 10:57 AM EDT) Calcium 8.9 8.4 - 10.2 mg/dL [facility] Blood Venous blood specimen / Unknown 10/16/2024 10:57 AM EDT 10/16/2024 2:53 PM EDT Divya Frye HISTORICAL MANUSCRIPTS CURATOR LAB BLOOD ORDERABLES Final Res ult Performing Organization Address [facility] de Phone Number [facility] [address] [place] [phone] * TSH W/Reflex to FT4 (10/10/2024 9:03 AM EDT) Pathologist [facility] TSH reflex Free T4 3.69 0.32 - 4.0 uIU/mL [facility] Blood Venous blood specimen / Unknown 10/10/2024 9:03 AM EDT 10/10/2024 2:05 PM EDT [facility] LAB BLOOD ORDERABLES Final Res ult Performing Organization Address [facility] Co de Phone Number [facility] [address] [place] [phone] * Hepatitis C Viral RNA, Quantitative, Real-Time PCR (05/26/2024 10:18 AM EST) [facility] Hepatitis C Viral Load <15 NOT DETECTED NOT DETECTED IU/mL [facility] HCV Log PCR <1.18 NOT DETECTED NOT DETECTED Log IU/mL [facility] Comment:For additional infor mation, please refer tohttp://education.[employer]/faq/VTY93z3(This link is being provided for informational/educational purposes only.)THIS TEST WAS PERFORMED AT:[facility] [place] [phone] LOPEZ MD Blood 05/26/2024 10:1 8 AM EST 05/26/2024 1:59 PM EST Divya [facility] LAB BLOOD ORDERABLES Final Res ult Performing Organization Address [facility] Co de Phone Number [facility] [address] [place] [phone] * HIV-1/2 Antigen and Antibodies, Fourth Generation, with Reflexes (05/26/2024 10:18 AM EST) [facility] HIV AB/AG Nonreactive Nonreactive [facility] Comment:HIV-1 p24 Ag and/or HIV-1/HIV-2 Ab not detected.A test result that is nonreactive does not exclude thepossibility of exposure to or infection with HIV-1 and/orHIV-2. Nonreactive results in this assay for individualswith prior exposure to HIV-1 and/or HIV-2 may be due toantigen and antibody levels that are below the limit ofdetection of this assay.The [employer] HIV Ag/Ab Combo assay result andsupplemental assay results should be interpreted inconjunction with the patient's clinical presentation,history and other laboratory results. If the results areinconsistent with clinical evidence, additional testing issuggested to confirm the result. Blood Venous blood specimen / Unknown 05/26/2024 10:18 AM EST 05/26/2024 1:59 PM EST us Divya Frye [facility] LAB BLOOD ORDERABLES Final Res ult [facility] [address] [place] [phone] * Lipid Panel, Standard (05/26/2024 10:18 AM EST) Triglycerides 61 <150 mg/dL [facility] Comment:Desirable Triglyceri de: less than 150 mg/dLBorderline High Triglyceride 150-199 mg/dLHigh Triglyceride: 200-499 mg/dLVery High Triglyceride: greater than or equal to 5OO mg/dL Cholesterol 156 <200 mg/dL [facility] Comment:Desirable Cholestero l: less than 200 mg/dLBorderline High Cholesterol: 200-239 mg/dLHigh Cholesterol: greater than 239 mg/dL LDL Cholesterol Calculated 84 <100 mg/dL [facility] Comment:Desirable LDL: less than 100 mg/dLNear Optimal/Above Optimal LDL: 110- 129 mg/dLBorderline High LDL: 130-159 mg/dLHigh LDL: 160-189 mg/dLVery High LDL: greater than or equal to 190 mg/dL HDL Cholesterol 60 >40 mg/dL [facility] Comment:Desirable HDL: great er than 40 mg/dL Note: This HDL assay may give artificially low results in patients with liver disease. Blood Venous blood specimen / Unknown 05/26/2024 10:18 AM EST 05/26/2024 1:59 PM EST Divya Frye HISTORICAL MANUSCRIPTS CURATOR LAB BLOOD ORDERABLES Final Res ult [facility] [address] [place] [phone] * Hm Colonoscopy (04/25/2024 3:57 PM EST) Historical Provider MD HEALTH MAINTENANCE Final Result * BI Mammogram Screening Tomosynthesis Bilateral (12/24/2023 3:15 PM EDT) Anatomical Region Laterality Modality Breast Bilateral Mammography 12/24/2023 3:15 PM EDT Narrative 01/08/2024 9:24 AM EDT [address] [place] [address] Mammography Report Signed Patient: Stephanie Owen MR#: [id number] : 1975 Acct:[id number] Age/Sex: 48 / F ADM Date: 12/24/23 Loc: HO.MAMMO Attending Dr: Divya Frye HISTORICAL MANUSCRIPTS CURATOR Ordering Physician: Divya Frye Results: 1Negat ismael Date of Service: 12/24/23 Follow Up: 1 Year From [facility] Mammogram Procedure(s): MM tomosynthesis screening BI Accession Number(s): [id number] cc: Divya Frye EXAMINATION: MM SCREENING DIGITAL [...] OV> 01/08/24920 DD/ 1515 TD/TT: 12/24/23 1536 Glassware Verifier: Procedure Note Donotuseinterpreter, Image - 01/08/[facility] [address] [place] [address] Mammography Report Signed Patient: Stephanie OwenMR#: [id number] : 1975Acct:[id number] Age/Sex: 48 / FADM Date: 12/24/23 Loc: HO.MAMMO Attending Dr: Divya Frye HISTORICAL MANUSCRIPTS CURATOR Ordering Physician: Divya FryePResults: 1Negat ismael Date of Service: 12/24/23Follow Up: 1 Year From Orig inal Mammogram Procedure(s): MM tomosynthesis screening BI Accession Number(s): [id number] cc: Divya Frye EXAMINATION: MM SCREENING DIGITAL [...] 01/08/24 0921 DD/ 1515 TD/TT: 12/24/23 1536 Glassware Verifier: us Divya Frye HISTORICAL MANUSCRIPTS CURATOR IMG BI PROCEDURES Edited Resul t - Final * HPV E6/E7 RFLX ALFRED 16 18/45 (09/21/2021 2:22 PM EDT) HPV mRNA E6/E7 rflx Not Detected Not Detected [facility] Comment: Methodology: Shoulder Pad Molder-Mediated Amplification This assay detects E6/E7 viral messenger RNA (mRNA) from 14 high-risk HPV types (16,18,31,33,35,39,45,51,52,56,58,59,66,68). Cervical sources are required for HPV testing. If a vaginal source from a patient who has had a total hysterectomy with removal of cervix was submitted, please contact the testing laboratory for alternative testing options. For additional information, please refer to http://education.Gig[employer]/faq/REF974c8 (This link if provided for information/ educational purposes only.) THIS TEST WAS PERFORMED AT: [facility] [address] [place] [address] [address] [id number] IQRA LOPEZ MD 09/21/2021 2:22 PM EDT us Gaudencio Benitez MD HISTORICAL/NON ORDERABLE LABS Fi nal Result [facility] [address] from Last 3 Months or Most Recently Relevant to Health Maintenance Insurance [facility] C3 Care Teams Broadcast Operations Director Relationship Specialty Start Date End Date Divya Frye FNP [address] [place] [address] [place] [address] PCP - General Family Medicine 12/14/21
--- OUTSIDE RECORDS SUMMARY | 2024-12-29 20:27 | XMS_ITS | Encounter Summary ---
Author Organization [employer] Address [address] [facility] 7 [place] [address] Care Team Providers Care Animation Director Name Role Phone Divya Frye Primary Care Provider [phone] Encounter Details Date Type Department Care Team ([facility] st Contact Info) Description 08/22/2024 Orders Only [facility] MED & PEDS [address] [place] [address] Divya Frye FNP 505 [place] [address] Numbness of lip (Primary Dx) Social History Tobacco Use Types [...] Upcoming Encounters Date Type Department Care Team ([facility] st Contact Info) Description 01/19/2025 9:00 AM EDT Office Visit [facility] MED & PEDS 505 [place] [address] Divya Frye FNP 505 [place] [address] 02/26/2025 9:00 AM EST Clinical Support [facility] MED & PED[facility] [address] [place] [address] Arabella Corey, KO 505 [place] [address] documented as of this encounter Procedures Procedure Name Priority Date/Time Associated Diagnosis Comments VITAMIN D,25-OH,TOTAL,IA Routine 10/16/2024 10:57 AM EDT Numbness of lip VITAMIN B12/FOLATE, SERUM PANEL Routine 10/16/2024 10:57 AM EDT Numbness of lip MAGNESIUM Routine 10/16/2024 10:57 AM EDT Numbness of lip CALCIUM Routine 10/16/2024 10:57 AM EDT Numbness of lip documented in this encounter Results * Calcium (10/16/2024 10:57 AM EDT) Calcium 8.9 8.4 - 10.2 mg/dL [facility] Blood Venous blood specimen / Unknown 10/16/2024 10:57 AM EDT 10/16/2024 2:53 PM EDT Divya Frye DIRECTOR OF EVENT SALES LAB BLOOD ORDERABLES Final Res ult Performing Organization Address [facility]/ZIP Co de Phone Number [facility] [address] [place] [phone] * Magnesium (10/16/2024 10:57 AM EDT) Magnesium 1.9 1.6 - 2.6 mg/dL [facility] Blood Venous blood specimen / Unknown 10/16/2024 10:57 AM EDT 10/16/2024 2:53 PM EDT Divya Frye [facility] LAB BLOOD ORDERABLES Final Res ult Performing Organization Address [facility] Co de Phone Number [facility] [address] [place] [phone] * Vitamin D, 25-Hydroxy, Total, Immunoassay (10/16/2024 10:57 AM EDT) Vitamin D 25-OH Total 48.2 >30 ng/mL [facility] Comment: Health Based Reference Values*< 20 ng/mL Kkaojyfqp28-93 ng/mL Insufficient> 30 ng/mL Sufficient*Little TEMPLE. N [...] AM EDT 10/16/2024 2:53 PM EDT Divya ACOSTA LAB BLOOD ORDERABLES Final Res ult Performing Organization Address [facility] Co de Phone Number [facility] [address] [place] [phone] * Vitamin B12/Folate, Serum Panel (10/16/2024 10:57 AM EDT) Vitamin B12 240 200 - 900 pg/mL [facility] Comment:NORMAL 200-900 PG/ML INDETERMINATE 160-199 PG/ML DEFICIENT < 160 PG/ML Folate 5.1 > or = 4.0 ng/mL [facility] Comment:Reference Values:> o r = 4.0 ng/mL< 4.0 ng/mL suggests folate deficiency Methotrexate, aminopterin and folinic acid(leucovorin) are chemotherapeutic agents whose molecularstructures are similar to folate; therefore, the Architectfolate assay cannot be used for patients using these drugs. Blood Venous blood specimen / Unknown 10/16/2024 10:57 AM EDT 10/16/2024 2:53 PM EDT us Divya ACOSTA LAB BLOOD ORDERABLES Final Res ult Performing Organization Address [facility] Co de Phone Number [facility] [address] [place] [phone] documented in this encounter Visit Diagnoses Diagnosis Numbness of lip- Primary documented in this encounter Additional Health Concerns Assessment Noted Time PHQ-9 Depression Total Score: 7 04/21/19 25 9:31 AM EST documented as of this encounter Care Teams Animation Director Relationship Specialty Start Date End Date Divya Frye FNP [address] [place] [address] PCP - General Family Medicine 12/14/21 documented as of this encounter
--- OUTSIDE RECORDS SUMMARY | 2024-12-29 20:27 | XMS_ITS | Encounter Summary ---
Author Organization [employer] Address [address] [place] [address] 7 [place] [address] Care Team Providers Care Packaging Operator Name Role Phone Divya Frye Primary Care Provider [phone] Reason for Visit * Reason Onset Date Comments Med Refill 08/22/2022 Appt w/PCP 08/22/2022 Encounter Details Date Type Department Care Team (Late st Contact Info) Description 08/22/2022 Telephone [facility] MEDICINE [address] [place] [address] Divya Frye FNP [address] [place] [address] Med Refill; Appt w/PCP Social History Tobacco [...] EDT TC to pt, reviewed pt's last [facility] appt date and last time she received Tramadol. Explained that she has a new provider and will need to be seen before Tramadol would be considered. Pt agreeable. Pt scheduled to see Shivam Frye 09/04/22 @ 1pm for medication review. * Telephone Encounter - Ivansophie Wolf Benton - 08/22/2022 10:58 AM EDT TC from pt requesting med refill on Tramadol 50 Mg Tablet Please sent to [id number] [place], [place] - [address] [facility] documented in this encounter Plan of Treatment Upcoming Encounters Date Type Department Care Team ([facility] st Contact Info) Description 01/19/2025 9:00 AM EDT Office Visit [facility] MED & PEDS [address] [place] [address] Divya Frye FNP 505 [place] [address] 02/26/2025 9:00 AM EST Clinical Support [facility] MED & PEDS [address] [place] [address] Arabella Corey, RN 505 [place] [address] documented as of this encounter Visit Diagnoses Not on filedocumented in this encounter Care Teams Packaging Operator Relationship Specialty Start Date End Date Divya Frye FNP [address] [place] [address] PCP - General Family Medicine 12/14/21 documented as of this encounter
--- OUTSIDE RECORDS SUMMARY | 2024-12-29 20:27 | XMS_ITS | Encounter Summary ---
Author Organization [employer] Address [address] [facility] 7 [place] [address] Care Team Providers Care Chief Operator Reformer Name Role Phone Divya Frye Primary Care Provider [phone] Reason for Visit * Reason Onset Date Comments Appointment Request 04/13/2023 Encounter Details Date Type Department Care Team ([facility] st Contact Info) Description 04/13/2023 Telephone [facility] MEDICINE [address] [place] [address] Divya Frye FNP [address] [facility] [place] [address] Appointment Request Social History Tobacco Use Types [...] Care Team (Late st Contact Info) Description 01/19/2025 9:00 AM EDT Office Visit [facility] MED & PEDS [address] [place] [address] Divya Frye FNP 505 [place] [address] 02/26/2025 9:00 AM EST Clinical Support [facility] MED & PEDS [address] [place] [address] Arabella Corey, RN 505 [place] [address] documented as of this encounter Visit Diagnoses Not on filedocumented in this encounter Additional Health Concerns Assessment Noted Time PHQ-9 Depression Total Score: 13 023 1:20 PM EDT documented as of this encounter Care Teams Chief Operator Reformer Relationship Specialty Start Date End Date Divya Frye FNP [address] [place] [address] PCP - General Family Medicine 12/14/21 documented as of this encounter
--- OUTSIDE RECORDS SUMMARY | 2024-12-29 20:27 | XMS_ITS | Encounter Summary ---
Author Organization [employer] Address [address] [facility] 7 [place] [address] Care Team Providers Care Dry Wall Installations Mechanic Name Role Phone Divya Frye Primary Care Provider [phone] Encounter Details Date Type Department Care Team ([facility] st Contact Info) Description 09/21/2024 Orders Only [facility] CH[facility] MED & PEDS [address] [place] [address] Divya Frye FNP 505 [place] [address] Subclinical hypothyroidism (Primary Dx) Social History Tobacco Use Types [...] 9:00 AM EDT Office Visit [facility] MED & PEDS [address] [place] [address] Divya Frye FNP 505 [place] [address] 02/26/2025 9:00 AM EST Clinical Support [facility] MED & PEDS [address] [place] [address] Arabella Corey, RN [address] [place], [place] [phone] documented as of this encounter Procedures Procedure Name Priority Date/Time Associated Diagnosis Comments TSH W/REFLEX TO FT4 Routine 10/10/2024 9:03 AM EDT Subclinical hypothyroidism documented in this encounter Results * TSH W/Reflex to FT4 (10/10/2024 9:03 AM EDT) TSH reflex Free T4 3.69 0.32 - 4.0 uIU/mL [facility] Blood Venous blood specimen / Unknown 10/10/2024 9:03 AM EDT 10/10/2024 2:05 PM EDT us Divya ACOSTA LAB BLOOD ORDERABLES Final Res ult [facility] [address] [place] [phone] [phone] documented in this encounter Visit Diagnoses Diagnosis Subclinical hypothyroidism- Primary Other specified acquired hypothyroidism documented in this encounter Additional Health Concerns Assessment Noted Time PHQ-9 Depression Total Score: 7 04/21/19 25 9:31 AM EST documented as of this encounter Care Teams Dry Wall Installations Mechanic Relationship Specialty Start Date End Date Divya Frye FNP [address] [place] [address] PCP - General Family Medicine 12/14/21 documented as of this encounter
--- OUTSIDE RECORDS SUMMARY | 2024-12-29 20:27 | XMS_ITS | Encounter Summary ---
Author Organization [employer] Address [address] [facility] 7 [place] [address] Care Team Providers Care Intermediate Teacher Name Role Phone Divya Frye Primary Care Provider [phone] Reason for Visit * Reason Onset Date Comments Med Refill 09/21/2023 Encounter Details Date Type Department Care Team ([facility] st Contact Info) Description 09/21/2023 Telephone [facility] MEDICINE [address] [place] [address] Divya Frye FNP [address] [facility] [place] [place] [address] Med Refill Social History Tobacco Use Types [...] refill : traMADol (Ultram) 50 MG tablet [id number] [place], [place] - [address] [place] [address] AT [facility] documented in this encounter Plan of Treatment Upcoming Encounters Date Type Department Care Team ([facility] st Contact Info) Description 01/19/2025 9:00 AM EDT Office Visit [facility] MED & PEDS 505 [place] [address] Divya Frye FNP [address] [place] [address] 02/26/2025 9:00 AM EST Clinical Support [facility] MED & PEDS [address] [place] [address] Araeblla Corey, RN 505 [place] [address] documented as of this encounter Visit Diagnoses Not on filedocumented in this encounter Additional Health Concerns Assessment Noted Time PHQ-9 Depression Total Score: 12 024 10:09 AM EST documented as of this encounter Care Teams Intermediate Teacher Relationship Specialty Start Date End Date Divya Frye FNP [address] [place] [address] PCP - General Family Medicine 12/14/21 documented as of this encounter
--- OUTSIDE RECORDS SUMMARY | 2024-12-29 20:27 | XMS_ITS | Patient Health Record ---
Author Organization [facility] Address [address] [facility] [address] [place] [address] Care Team Providers Care Autographer Name Role Phone PATRIC MUNROE MD Primary [...] Blood Reviewed date:04/25/2024 01:43:20 PM Interpretation: Performing Lab:[facility], [address] [place] [phone] Notes/Report: Glucose, Whole Blood 93 60-115 mg/dL METER # : [id number] Reason For Referral Referring Provider First Name PATRIC Referring Provider Last Name LUDWIG Referred Organization [facility] Referred Provider Sherwin Lama Jr Referred Address [address] [place] [address],[address],[place], [place],[address], Referred Provider Specialty Gastroentero logy General Notes Rocío Frederick 024 02:55:59 PM EST > requested a [facility] referral from [facility] for visit with Dr. Lama on [phone] Referral Priority Routine Medications Medication SIG (Take, [...] Problem Status W/U Status Risk Notes Problem [id number] jail (curre nt) use of non-steroidal anti-inflammatories (NSAID) (Z79.1) Active confirmed Problem 978029203 Family history o f colon cancer (Z80.0) Active confirmed Problem [id number] jail (curre nt) use of oral hypoglycemic drugs (Z79.84) Active confirmed Problem [id number] Gastroesophageal reflux disease, unspecified whether esophagitis present (K21.9) Active confirmed Vital Signs Blood pressure diastolic 00 mm Hg 03/20/2024 Height 66.75 in 03/20/2024 Blood pressure systolic 00 mm Hg 03/20/2024 Weight 252 lbs 03/20/2024 BMI 39.76 kg/m2 03/20/2024 Encounters Encounter Location Date Provider Diagnosis [facility] Outpatient [address] [place], [place] [phone] 04/25/2024 Sherwin Lama Jr Colon cancer screening Z12.11 and Family history of colon cancer Z80.0 [facility] [address] [place] [address] 03/20/2024 Sherwin Lama Jr Colon cancer screening [...] Start Date Coverage End Date [facility]ICA[facility] [address] [place] [id number] LENA MALLORY Self - patient is the insured Medical (General) History Medical History History ICD Code Gastroesophageal reflux disease Back and neck pain Varicose veins Hypertension Depression Elevated body mass index Colonoscopy 02/01, Endometrial hyperplasia/abnormal uterine bleeding Surgical History Surgery Date(Month/Year) Tubal ligation Cholecystectomy Back surgery IUD placement
--- OUTSIDE RECORDS SUMMARY | 2024-12-29 20:27 | XMS_ITS | Encounter Summary ---
Author Organization [employer] Address [address] [facility] 7 [place] [address] Care Team Providers Care Maintenance Supervisor Name Role Phone Divya Frye Primary Care Provider [phone] Reason for Visit * Reason Comments Med Refill Encounter Details Date Type Department Care Team (Late st Contact Info) Description 12/07/2024 Refill [facility] MEDICINE [address] [place] [address] Divya Frye FNP [address] [facility] [place] [address] Social History Tobacco Use Types Packs/Day Years [...] Description 01/19/2025 9:00 AM EDT Office Visit [facility] MED & PEDS [address] [place] [address] Divya Frye FNP 505 [place] [address] 02/26/2025 9:00 AM EST Clinical Support [facility] MED & PEDS [address] [place] [address] Arabella Corey, RN 505 [place] [address] documented as of this encounter Visit Diagnoses Not on filedocumented in this encounter Additional Health Concerns Assessment Noted Time PHQ-9 Depression Total Score: 7 04/21/19 25 9:31 AM EST documented as of this encounter Care Teams Maintenance Supervisor Relationship Specialty Start Date End Date Divya Frye FNP [address] [place] [address] PCP - General Family Medicine 12/14/21 documented as of this encounter
--- OUTSIDE RECORDS SUMMARY | 2024-12-29 20:27 | XMS_ITS | Encounter Summary ---
Author Organization [employer] Address [address] [facility] 7 [place] [address] Care Team Providers Care Paper Products Supervisor Name Role Phone Divya Frye Primary Care Provider [phone] Reason for Visit * Reason Comments Med Refill Encounter Details Date Type Department Care Team (Late st Contact Info) Description 12/08/2024 Refill [facility] MEDICINE [address] [place] [address] Divya Frye FNP [address] [facility] [place] [facility] [place] [address] Seasonal allergic rhinitis, unspecified trigger Social History Tobacco Use Types Packs/Day Years [...] ([facility] st Contact Info) Description 01/19/2025 9:00 AM EDT Office Visit [facility] MED & PEDS 505 [place] [address] Divya Frye FNP [address] [place] [address] 02/26/2025 9:00 AM EST Clinical Support [facility] MED & PEDS [address] [place] [address] Arabella Corey, KO 505 [place] [address] documented as of this encounter Visit Diagnoses Diagnosis Seasonal allergic rhinitis, unspecified trigger documented in this encounter Additional Health Concerns Assessment Noted Time PHQ-9 Depression Total Score: 7 04/21/19 25 9:31 AM EST documented as of this encounter Care Teams Paper Products Supervisor Relationship Specialty Start Date End Date Divya Frye FNP [address] [place] [address] PCP - General Family Medicine 12/14/21 documented as of this encounter
--- OUTSIDE RECORDS SUMMARY | 2024-12-29 20:27 | XMS_ITS | Encounter Summary ---
Author Organization [employer] Address [address] [facility] 7 [place] [address] Care Team Providers Care Hardware Design Engineer Name Role Phone Divya Frye Primary Care Provider [phone] Reason for Visit * Reason Onset Date Comments Med Refill 08/14/2024 Encounter Details Date Type Department Care Team ([facility] st Contact Info) Description 08/14/2024 Telephone [facility] MEDICINE [address] [place] [address] Divya Frye FNP [address] [facility] [place] [address] Med Refill Social History Tobacco Use Types [...] 50 MG tablet To be sent to: [id number] AT [facility] documented in this encounter Plan of Treatment Upcoming Encounters Date Type Department Care Team ([facility] Contact Info) Description 01/19/2025 9:00 AM EDT Office Visit [facility] MED & PEDS [address] [place] [address] Divya Frye FNP 505 [place] [address] 02/26/2025 9:00 AM EST Clinical Support [facility] MED & PEDS 505 [place] [address] Arabella Corey RN 505 [place] [address] documented as of this encounter Visit Diagnoses Not on filedocumented in this encounter Additional Health Concerns Assessment Noted Time PHQ-9 Depression Total Score: 7 04/21/19 25 9:31 AM EST documented as of this encounter Care Teams Hardware Design Engineer Relationship Specialty Start Date End Date Divya Frye FNP [address] [place] [address] PCP - General Family Medicine 12/14/21 documented as of this encounter
--- OUTSIDE RECORDS SUMMARY | 2024-12-29 20:27 | XMS_ITS | Encounter Summary ---
Author Organization [employer] Address [address] [facility] 7 [place] [address] Care Team Providers Care Lumber Sticker Name Role Phone Divya Frye Primary Care Provider [phone] Reason for Visit * Reason Onset Date Comments Med Refill 03/03/2024 Encounter Details Date Type Department Care Team ([facility] st Contact Info) Description 03/03/2024 Telephone [facility] MEDICINE [address] [place] [address] Divya Frye FNP [address] [place] [address] Med Refill Social History Tobacco Use Types [...] 50 MG tablet To be sent to: [facility][id number] documented in this encounter Plan of Treatment Upcoming Encounters Date Type Department Care Team (Late st Contact Info) Description 01/19/2025 9:00 AM EDT Office Visit [facility] MED & PEDS [address] [place] [address] Divya Frye FNP 505 [place] [address] 02/26/2025 9:00 AM EST Clinical Support [facility] MED & PEDS [address] [place] [address] Arabella Corey, KO [address] [place] [address] documented as of this encounter Visit Diagnoses Not on filedocumented in this encounter Additional Health Concerns Assessment Noted Time PHQ-9 Depression Total Score: 12 024 10:09 AM EST documented as of this encounter Care Teams Lumber Sticker Relationship Specialty Start Date End Date Divya Frye FNP [address] [place] [address] PCP - General Family Medicine 12/14/21 documented as of this encounter
--- OUTSIDE RECORDS SUMMARY | 2024-12-29 20:27 | XMS_ITS | Encounter Summary ---
Author Organization [employer] Address [address] [facility] 7t [place] [address] Care Team Providers Care Fiscal Officer Name Role Phone Divya Frye DAVE Primary Care Provider [phone] Encounter Details Date Type Department Care Team ([facility] st Contact Info) Description 06/09/2024 Orders Only [facility] MED & PEDS [address] [place] [address] ProviderRicha MD Social History Tobacco Use Types Packs/Day Years [...] Upcoming Encounters Date Type Department Care Team ([facility] st Contact Info) Description 01/19/2025 9:00 AM EDT Office Visit [facility] MED & PEDS [address] [place] [address] Divya Frye FNP [address] [place] [address] 02/26/2025 9:00 AM EST Clinical Support [facility] MED & PEDS 505 [place] [address] Arabella Corey, RN 505 [place] [address] documented as of this encounter Procedures Procedure Name Priority Date/Time Associated Diagnosis Comments HM COLONOSCOPY Routine 04/25/2024 3:57 PM EST documented in this encounter Results * Hm Colonoscopy (04/25/2024 3:57 PM EST) Historical Provider HEALTH MAINTENANCE Final Result documented in this encounter Visit Diagnoses Not on filedocumented in this encounter Additional Health Concerns Assessment Noted Time PHQ-9 Depression Total Score: 7 04/21/19 25 9:31 AM EST documented as of this encounter Care Teams Fiscal Officer Relationship Specialty Start Date End Date Divya Frye FNP [address] [place] [address] PCP - General Family Medicine 12/14/21 documented as of this encounter
== END 2024-12-29 15:01 | disposition home or self-care (01) ==
LOC: HO.MAMMO 15:00
PROVIDERS: PCP Registered Nurse; Visit Provider Registered Nurse
DX: Z12.31 Encounter for screening mammogram for malignant neoplasm of breast (principal)
CPT/HCPCS: 77063; 77067

== ENCOUNTER → 2024-12-29 15:15 | Outpatient (BNV) | payer MEDICAID, SELFPAY | PROVIDERS: PCP Registered Nurse; Visit Provider Radiology Body Imaging | DX: Z12.31 Encounter for screening mammogram for malignant neoplasm of breast (principal) | CPT/HCPCS: 77063; 77067 ==